=== PATIENT | male | born 1955 | race Caucasian/White ===

== ENCOUNTER → 2016-11-21 | Outpatient (CLI) | payer MEDICARE, OTHER ==
[~2016-11-21] MED LIST: ATEN-60 PO; CYANOCOBALAMIN (B-12) 1000 MCG/1 ML VIAL IM ONE; CYANOCOBALAMIN (B-12) 1000 MCG/1 ML VIAL ONE; FENT25DI2 TD; INSLANTI SC; INSUINJ47 IJ; ISOS20TA56 PO; PERCOT PO
[2016-11-21 14:30] VITALS: BP 152/98
== END | disposition home or self-care (01) ==
LOC: CHF HDHVI 14:02
PROVIDERS: ATTEND Internal Medicine Cardiovascular Disease
DX: I50.23 Acute on chronic systolic (congestive) heart failure (principal); D64.9 Anemia, unspecified; G89.29 Other chronic pain
CPT/HCPCS: 96372; G0463; J3420

== ENCOUNTER → 2016-12-27 | Outpatient (CLI) | payer MEDICARE, OTHER ==
[~2016-12-27] MED LIST changes: +AMINOPHYLLINE 250 MG/10 ML VL IV ONE; -CYANOCOBALAMIN (B-12) 1000 MCG/1 ML VIAL IM ONE; -CYANOCOBALAMIN (B-12) 1000 MCG/1 ML VIAL ONE
[2016-12-27 12:00] VITALS: BP 154/82
== END | disposition home or self-care (01) ==
LOC: CHF HDHVI 11:44
PROVIDERS: ATTEND Internal Medicine Cardiovascular Disease
DX: I50.9 Heart failure, unspecified (principal); I25.10 Atherosclerotic heart disease of native coronary artery without angina pectoris; D64.9 Anemia, unspecified; G89.29 Other chronic pain
CPT/HCPCS: G0463

== ENCOUNTER → 2017-01-29 | Outpatient (CLI) | payer MEDICARE, OTHER ==
[~2017-01-29] MED LIST changes: -AMINOPHYLLINE 250 MG/10 ML VL IV ONE
[2017-01-29 13:50] VITALS: BP 153/93
== END | disposition home or self-care (01) ==
LOC: CHF HDHVI 13:10
PROVIDERS: ATTEND Internal Medicine Cardiovascular Disease
DX: I50.9 Heart failure, unspecified (principal); M25.512 Pain in left shoulder; M25.511 Pain in right shoulder; M79.605 Pain in left leg; M79.604 Pain in right leg
CPT/HCPCS: G0463

== ENCOUNTER → 2017-02-21 | Outpatient (CLI) | payer MEDICARE, OTHER | END | disposition home or self-care (01) | LOC: Rad HDHVI 09:54 | PROVIDERS: ATTEND Internal Medicine Cardiovascular Disease | DX: H51.23 Internuclear ophthalmoplegia, bilateral (principal); H53.2 Diplopia; G70.01 Myasthenia gravis with (acute) exacerbation | CPT/HCPCS: 70450 ==

== ENCOUNTER → 2017-03-07 | Outpatient (CLI) | payer MEDICARE ==
[2017-03-07 11:00] VITALS: BP 178/89
[2017-03-07 11:55] VITALS: BP 165/88
== END | disposition home or self-care (01) ==
LOC: CHF HDHVI 11:27
PROVIDERS: ATTEND Internal Medicine Cardiovascular Disease
DX: I10 Essential (primary) hypertension (principal); E78.5 Hyperlipidemia, unspecified; E11.9 Type 2 diabetes mellitus without complications; F41.9 Anxiety disorder, unspecified; G89.29 Other chronic pain
CPT/HCPCS: G0463

== ENCOUNTER → 2017-04-09 | Outpatient (CLI) | payer MEDICARE ==
[~2017-04-09] VITALS: Ht 165.1 cm; Wt 108.9 kg
[~2017-04-09] MED LIST changes: +CYANOCOBALAMIN (B-12) 1000 MCG/1 ML VIAL IM ONE; +CYANOCOBALAMIN (B-12) 1000 MCG/1 ML VIAL ONE
[2017-04-09 13:00] VITALS: BP 151/78
== END | disposition home or self-care (01) ==
LOC: CHF HDHVI 12:15
PROVIDERS: ATTEND Internal Medicine Cardiovascular Disease
DX: I50.9 Heart failure, unspecified (principal); E11.9 Type 2 diabetes mellitus without complications; G89.29 Other chronic pain; R53.1 Weakness; M54.9 Dorsalgia, unspecified
CPT/HCPCS: 93701; 94620; 96372; G0463; J3420

== ENCOUNTER → 2017-05-15 | Outpatient (CLI) | payer MEDICARE ==
[~2017-05-15] MED LIST changes: -CYANOCOBALAMIN (B-12) 1000 MCG/1 ML VIAL IM ONE; -CYANOCOBALAMIN (B-12) 1000 MCG/1 ML VIAL ONE
[2017-05-15 10:12] VITALS: BP 156/76
[2017-05-15 11:00] VITALS: BP 156/76
== END | disposition home or self-care (01) ==
LOC: CHF HDHVI 10:24
PROVIDERS: ATTEND Internal Medicine Cardiovascular Disease
DX: I50.9 Heart failure, unspecified (principal); I10 Essential (primary) hypertension; E78.2 Mixed hyperlipidemia; E11.9 Type 2 diabetes mellitus without complications; G89.29 Other chronic pain; R06.02 Shortness of breath; Z95.1 Presence of aortocoronary bypass graft
CPT/HCPCS: 93701; G0463

== ENCOUNTER → 2017-06-19 | Outpatient (CLI) | payer MEDICARE ==
[2017-06-19 12:30] VITALS: BP 178/87
[2017-06-19 16:49] LABS: BUN/Creatinine Ratio 18.3; Calcium 8.4 mg/dL (8.5-10.1); Magnesium 2.4 mg/dL (1.6-2.6); Potassium 4.3 mmol/L (3.5-5.1)
[2017-06-19 16:50] LABS: Basophils # (auto) 0 uL; Basophils % (auto) 0.5 % (0.0-2.0); Eosinophils # (auto) 0.1 uL; Eosinophils % (auto) 1.6 % (0.0-7.0); Hematocrit 41.7 % (41.0-53.0); Hemoglobin 14.4 g/dL (13.5-17.5); Lymphocytes # (auto) 1.3 uL; Lymphocytes % (auto) 16.9 % (10.0-50.0); Mean Corpuscular Hemoglobin 29.5 pg (28.0-32.0); Mean Corpuscular Hgb Conc. 34.5 g/dL (32.0-36.0); Mean Corpuscular Volume 85.5 fL (80.0-100.0); Mean Platelet Volume 9.2 fL (7.4-10.4); Monocytes # (auto) 0.8 uL; Monocytes % (auto) 10.7 % (0.0-12.0); Neutrophils # (auto) 5.3 uL; Neutrophils % (auto) 70.3 % (37.0-80.0); Nucleated Red Blood Cells % 0.5 %; Platelet Count (auto) 188 10^3/uL (140-450); Red Cell Distribution Width 13.9 % (11.6-16.0); White Blood Cell 7.6 10^3/uL (4.4-10.8)
== END | disposition home or self-care (01) ==
LOC: CHF HDHVI 11:52
PROVIDERS: ATTEND Internal Medicine Cardiovascular Disease
DX: I11.0 Hypertensive heart disease with heart failure (principal); I50.9 Heart failure, unspecified; E11.9 Type 2 diabetes mellitus without complications; D51.9 Vitamin B12 deficiency anemia, unspecified; D64.9 Anemia, unspecified; E55.9 Vitamin D deficiency, unspecified; I25.10 Atherosclerotic heart disease of native coronary artery without angina pectoris
CPT/HCPCS: 36415; 80048; 82306; 82607; 83036; 83735; 85025; G0463

== ENCOUNTER → 2017-07-26 | Outpatient (CLI) | payer MEDICARE ==
[2017-07-26 10:00] VITALS: BP 165/88
== END | disposition home or self-care (01) ==
LOC: CHF HDHVI 11:52
PROVIDERS: ATTEND Internal Medicine Cardiovascular Disease
DX: I50.9 Heart failure, unspecified (principal); G89.29 Other chronic pain; R53.83 Other fatigue; Z95.1 Presence of aortocoronary bypass graft
CPT/HCPCS: G0463

== ENCOUNTER → 2017-07-31 | Outpatient (CLI) | payer MEDICARE ==
[2017-07-31 11:00] VITALS: BP 156/77
[2017-07-31 11:45] VITALS: BP 150/76
== END | disposition home or self-care (01) ==
LOC: CHF HDHVI 11:11
PROVIDERS: ATTEND Internal Medicine Cardiovascular Disease
DX: I50.9 Heart failure, unspecified (principal); E11.9 Type 2 diabetes mellitus without complications; I10 Essential (primary) hypertension; E78.5 Hyperlipidemia, unspecified; Z95.1 Presence of aortocoronary bypass graft
CPT/HCPCS: G0463

== ENCOUNTER → 2017-08-22 | Outpatient (CLI) | payer MEDICARE ==
[2017-08-22 11:00] VITALS: BP 166/86
[2017-08-22 12:00] VITALS: BP 177/80
== END | disposition home or self-care (01) ==
LOC: CHF HDHVI 11:11
PROVIDERS: ATTEND Internal Medicine Cardiovascular Disease
DX: E11.9 Type 2 diabetes mellitus without complications (principal); G89.29 Other chronic pain; I50.9 Heart failure, unspecified; E78.5 Hyperlipidemia, unspecified; Z95.1 Presence of aortocoronary bypass graft
CPT/HCPCS: G0463

== ENCOUNTER → 2017-09-13 | Outpatient (CLI) | payer MEDICARE ==
[~2017-09-13] MED LIST changes: +SODIUM CHLORIDE 0.9% 250 ML IV ONE; +cefTRIAXone 1GM/10ml IVPUSH 10 ML IV ONE; +cloNIDine HCL 0.1 MG TAB ONE; +cloNIDine HCL 0.1 MG TAB PO ONE
[2017-09-13 11:22] LABS: Basophils # (auto) 0 uL; Basophils % (auto) 0.1 % (0.0-2.0); Eosinophils # (auto) 0 uL; Hematocrit 45.6 % (41.0-53.0); Hemoglobin 15.5 g/dL (13.5-17.5); Lymphocytes # (auto) 1.1 uL; Mean Corpuscular Hemoglobin 29.2 pg (28.0-32.0); Mean Corpuscular Hgb Conc. 33.9 g/dL (32.0-36.0); Monocytes % (auto) 7.3 % (0.0-12.0); Neutrophils # (auto) 11.5 uL; Neutrophils % (auto) 84.6 % (37.0-80.0); Nucleated Red Blood Cells % 0.1 %; Platelet Count (auto) 202 10^3/uL (140-450); Red Cell Distribution Width 13.3 % (11.8-14.3); White Blood Cell 13.6 10^3/uL (4.4-10.8)
[2017-09-13 11:39] LABS: Albumin 3.8 g/dL (3.4-5.0); BUN/Creatinine Ratio 25.7; Bilirubin, Direct 0.1 mg/dL (0-0.2); Bilirubin, Total 0.5 mg/dL (0.2-1.0); Calcium 8.5 mg/dL (8.5-10.1); Potassium 3.8 mmol/L (3.5-5.1); Total Protein 7.6 g/dL (6.4-8.2)
[2017-09-13 13:27] LABS: Urine Bilirubin Negative (Negative); Urine Blood Negative /uL (Negative); Urine Color Yellow (Yellow); Urine Glucose 4+ mg/dL (Normal); Urine Ketone Negative (Negative); Urine Nitrite Negative (Negative); Urine Urobilinogen Normal (Negative); Urine pH 6.5 (5.0-8.0)
[2017-09-13 14:00] VITALS: BP 141/76
== END | disposition home or self-care (01) ==
LOC: CHF HDHVI 09:53
PROVIDERS: ATTEND Internal Medicine Cardiovascular Disease
DX: I51.7 Cardiomegaly (principal); I70.0 Atherosclerosis of aorta; I10 Essential (primary) hypertension; E11.9 Type 2 diabetes mellitus without complications; E78.00 Pure hypercholesterolemia, unspecified; D64.9 Anemia, unspecified; E03.9 Hypothyroidism, unspecified; E55.9 Vitamin D deficiency, unspecified; R53.81 Other malaise; R97.20 Elevated prostate specific antigen [PSA]; N39.0 Urinary tract infection, site not specified; R07.0 Pain in throat
CPT/HCPCS: 36415; 71020; 80048; 80061; 80076; 81003; 82306; 83036; 84153; 84403; 84443; 85025; 85652; 87070; 87086; 87880; 93005; 96361; 96374; G0463; 96360; 96375

== ENCOUNTER → 2017-09-17 | Outpatient (CLI) | payer MEDICARE ==
[~2017-09-17] MED LIST changes: -SODIUM CHLORIDE 0.9% 250 ML IV ONE; -cefTRIAXone 1GM/10ml IVPUSH 10 ML IV ONE; -cloNIDine HCL 0.1 MG TAB ONE; -cloNIDine HCL 0.1 MG TAB PO ONE
[2017-09-17 11:13] VITALS: BP 173/98
[2017-09-17 12:35] VITALS: BP 165/91
== END | disposition home or self-care (01) ==
LOC: Rad HDHVI 12:57
PROVIDERS: ATTEND Internal Medicine Cardiovascular Disease
DX: M19.012 Primary osteoarthritis, left shoulder (principal); M48.02 Spinal stenosis, cervical region; M47.892 Other spondylosis, cervical region
CPT/HCPCS: 72125; 73200; G0463

== ENCOUNTER → 2017-10-15 | Outpatient (CLI) | payer MEDICARE ==
[~2017-10-15] MED LIST changes: +CYANOCOBALAMIN (B-12) 1000 MCG/1 ML VIAL IM ONE; +CYANOCOBALAMIN (B-12) 1000 MCG/1 ML VIAL ONE; +KETOROLAC TROMETH 60MG/2ML VIAL IM ONE; +ONDANSETRON HCL 4 MG/2 ML VIAL IV ONE; +ONDANSETRON HCL 4 MG/2 ML VIAL ONE
[2017-10-15 10:35] VITALS: BP 141/79
[2017-10-15 12:25] LABS: Basophils # (auto) 0 uL; Basophils % (auto) 0.4 % (0.0-2.0); Eosinophils # (auto) 0.1 uL; Eosinophils % (auto) 0.8 % (0.0-7.0); Hematocrit 45.8 % (41.0-53.0); Hemoglobin 15.5 g/dL (13.5-17.5); Lymphocytes # (auto) 1.6 uL; Lymphocytes % (auto) 18.3 % (10.0-50.0); Mean Corpuscular Hemoglobin 29.3 pg (28.0-32.0); Mean Corpuscular Hgb Conc. 33.9 g/dL (32.0-36.0); Mean Corpuscular Volume 86.4 fL (80.0-100.0); Monocytes # (auto) 0.9 uL; Neutrophils # (auto) 5.9 uL; Neutrophils % (auto) 69.5 % (37.0-80.0); Nucleated Red Blood Cells % 0.4 %; Platelet Count (auto) 168 10^3/uL (140-450); Red Cell Distribution Width 13.6 % (11.8-14.3); White Blood Cell 8.5 10^3/uL (4.4-10.8)
[2017-10-15 12:52] LABS: Urine Blood Negative /uL (Negative); Urine Specific Gravity 1.007 (1.001-1.035)
[2017-10-15 12:54] LABS: Albumin 3.9 g/dL (3.4-5.0); BUN/Creatinine Ratio 16.8; Bilirubin, Total 0.6 mg/dL (0.2-1.0); Calcium 8.7 mg/dL (8.5-10.1); Magnesium 2.3 mg/dL (1.6-2.6); Potassium 3.9 mmol/L (3.5-5.1); Total Protein 7.5 g/dL (6.4-8.2)
== END | disposition home or self-care (01) ==
LOC: CHF HDHVI 08:42
PROVIDERS: ATTEND Internal Medicine Cardiovascular Disease
DX: I70.0 Atherosclerosis of aorta (principal); E83.42 Hypomagnesemia; D64.9 Anemia, unspecified; R70.0 Elevated erythrocyte sedimentation rate; I11.0 Hypertensive heart disease with heart failure; I50.9 Heart failure, unspecified; I25.10 Atherosclerotic heart disease of native coronary artery without angina pectoris; M54.9 Dorsalgia, unspecified; M25.511 Pain in right shoulder; R51 Headache; R11.0 Nausea
CPT/HCPCS: 36415; 71046; 80053; 81003; 83735; 85025; 85652; 87086; 96372; 96374; G0463; J1885; J2405; J3420

== ENCOUNTER → 2017-11-14 | Outpatient (CLI) | payer MEDICARE ==
[~2017-11-14] MED LIST changes: -CYANOCOBALAMIN (B-12) 1000 MCG/1 ML VIAL IM ONE; -CYANOCOBALAMIN (B-12) 1000 MCG/1 ML VIAL ONE; -KETOROLAC TROMETH 60MG/2ML VIAL IM ONE; -ONDANSETRON HCL 4 MG/2 ML VIAL IV ONE; -ONDANSETRON HCL 4 MG/2 ML VIAL ONE
[2017-11-14 13:10] VITALS: BP 179/92
== END | disposition home or self-care (01) ==
LOC: CHF HDHVI 16:56
PROVIDERS: ATTEND Internal Medicine Cardiovascular Disease
DX: E11.9 Type 2 diabetes mellitus without complications (principal); I50.9 Heart failure, unspecified; G89.4 Chronic pain syndrome
CPT/HCPCS: 93701; G0463

== ENCOUNTER → 2018-07-12 | Outpatient (CLI) | payer MEDICARE | END | disposition home or self-care (01) | LOC: Rad HDHVI 10:47 | PROVIDERS: ATTEND Internal Medicine Cardiovascular Disease | DX: I25.5 Ischemic cardiomyopathy (principal); I50.33 Acute on chronic diastolic (congestive) heart failure | CPT/HCPCS: 93306 ==

== ENCOUNTER → 2018-07-15 | Outpatient (CLI) | payer MEDICARE ==
[~2018-07-15] MED LIST changes: +CYANOCOBALAMIN (B-12) 1000 MCG/1 ML VIAL IM ONE; +CYANOCOBALAMIN (B-12) 1000 MCG/1 ML VIAL ONE; +FUROSEMIDE 40 MG/4 ML VIAL IV ONE; +FUROSEMIDE 40 MG/4 ML VIAL ONE; +KETOROLAC TROMETH 60MG/2ML VIAL IM ONE; +POTASSIUM CHL 10 Meq TABLET PO ONE; +POTASSIUM CHL 20 Meq TABLET PO ONE
[2018-07-15 08:00] VITALS: BP 174/99
[2018-07-15 10:00] VITALS: BP 155/71
[2018-07-15 12:46] LABS: Basophils # (auto) 0 uL; Basophils % (auto) 0.3 % (0.0-2.0); Eosinophils # (auto) 0.2 uL; Eosinophils % (auto) 2.5 % (0.0-7.0); Hematocrit 39.9 % (41.0-53.0); Hemoglobin 13.7 g/dL (13.5-17.5); Lymphocytes # (auto) 1.1 uL; Lymphocytes % (auto) 14.1 % (10.0-50.0); Mean Corpuscular Hgb Conc. 34.3 g/dL (32.0-36.0); Mean Corpuscular Volume 84.7 fL (80.0-100.0); Monocytes # (auto) 0.9 uL; Monocytes % (auto) 11.5 % (0.0-12.0); Neutrophils # (auto) 5.5 uL; Neutrophils % (auto) 71.6 % (37.0-80.0); Nucleated Red Blood Cells % 0.3 %; Platelet Count (auto) 152 10^3/uL (140-450); Red Blood Cells 4.71 10^6/uL (4.5-5.90); Red Cell Distribution Width 13.7 % (11.8-14.3); White Blood Cell 7.7 10^3/uL (4.4-10.8)
[2018-07-15 13:48] LABS: Potassium 3.9 mmol/L (3.5-5.1)
[2018-07-15 13:57] LABS: BUN/Creatinine Ratio 17.6; Calcium 7.6 mg/dL (8.5-10.1)
== END | disposition home or self-care (01) ==
LOC: CHF HDHVI 08:31
PROVIDERS: ATTEND Internal Medicine Cardiovascular Disease
DX: I11.0 Hypertensive heart disease with heart failure (principal); I50.32 Chronic diastolic (congestive) heart failure; E83.40 Disorders of magnesium metabolism, unspecified; D64.9 Anemia, unspecified; I10 Essential (primary) hypertension; D51.9 Vitamin B12 deficiency anemia, unspecified; E55.9 Vitamin D deficiency, unspecified; E78.5 Hyperlipidemia, unspecified; E11.9 Type 2 diabetes mellitus without complications; I48.91 Unspecified atrial fibrillation; R06.00 Dyspnea, unspecified; Z95.810 Presence of automatic (implantable) cardiac defibrillator
CPT/HCPCS: 36415; 80048; 82306; 82607; 82962; 83735; 83880; 85025; 96372; 96374; G0463; J1885; J1940; J3420

== ENCOUNTER → 2018-07-17 | Outpatient (CLI) | payer MEDICARE ==
[~2018-07-17] VITALS: Ht 30.5 cm; Wt 107.0 kg
[~2018-07-17] MED LIST changes: -CYANOCOBALAMIN (B-12) 1000 MCG/1 ML VIAL IM ONE; -CYANOCOBALAMIN (B-12) 1000 MCG/1 ML VIAL ONE; -FUROSEMIDE 40 MG/4 ML VIAL IV ONE; -FUROSEMIDE 40 MG/4 ML VIAL ONE; +FUROSEMIDE INJECTION 10 ML ONE; +FUROSEMIDE INJECTION 500 MG in SODIUM CHL 0.9% 500 ML IV SCH; -KETOROLAC TROMETH 60MG/2ML VIAL IM ONE
[2018-07-17 09:07] LABS: Albumin 3.5 g/dL (3.4-5.0); BUN/Creatinine Ratio 17.1; Calcium 8.1 mg/dL (8.5-10.1); Potassium 3.8 mmol/L (3.5-5.1)
[2018-07-17 09:13] LABS: Bilirubin, Total 0.6 mg/dL (0.2-1.0); Total Protein 7.4 g/dL (6.4-8.2); Uric Acid 7.9 mg/dL (3.5-7.2)
[2018-07-17 09:30] VITALS: BP 129/66
[2018-07-17 11:15] VITALS: BP 137/65
== END | disposition home or self-care (01) ==
LOC: CHF HDHVI 07:54
PROVIDERS: ATTEND Internal Medicine Cardiovascular Disease
DX: I50.32 Chronic diastolic (congestive) heart failure (principal); I11.0 Hypertensive heart disease with heart failure; E11.9 Type 2 diabetes mellitus without complications; M10.9 Gout, unspecified; E78.5 Hyperlipidemia, unspecified; I25.5 Ischemic cardiomyopathy; I48.91 Unspecified atrial fibrillation; D51.9 Vitamin B12 deficiency anemia, unspecified; Z95.810 Presence of automatic (implantable) cardiac defibrillator
CPT/HCPCS: 36415; 80053; 80061; 83036; 83880; 84550; 96365; 96366; G0463; J1940; J7040

== ENCOUNTER → 2018-07-30 | Outpatient (CLI) | payer MEDICARE ==
[~2018-07-30] MED LIST changes: -FUROSEMIDE INJECTION 10 ML ONE; -FUROSEMIDE INJECTION 500 MG in SODIUM CHL 0.9% 500 ML IV SCH; -POTASSIUM CHL 10 Meq TABLET PO ONE; -POTASSIUM CHL 20 Meq TABLET PO ONE
== END | disposition home or self-care (01) ==
LOC: LAB 14:04
PROVIDERS: ATTEND Internal Medicine Cardiovascular Disease
DX: R19.5 Other fecal abnormalities (principal)
CPT/HCPCS: 82270

== ENCOUNTER → 2018-10-07 | Outpatient (CLI) | payer MEDICARE ==
[~2018-10-07] VITALS: Ht 30.5 cm; Wt 113.4 kg
[~2018-10-07] MED LIST changes: +CYANOCOBALAMIN (B-12) 1000 MCG/1 ML VIAL IM ONE; +CYANOCOBALAMIN (B-12) 1000 MCG/1 ML VIAL ONE; +FUROSEMIDE 100 MG/10ML VIAL IV ONE; +FUROSEMIDE 40 MG/4 ML VIAL ONE; +MAGNESIUM OXIDE 400 MG TAB ONE; +MAGNESIUM OXIDE 400 MG TAB PO ONE; +POTASSIUM CHL 10 Meq TABLET PO ONE; +POTASSIUM CHL 20 Meq TABLET PO ONE
--- NOTE | 2018-10-07 08:40 | NUR ---
PT. TO CHF CLINIC WITH C/O SOB WORSENING OVER PAST 2-3 DAYS. PT. WITH GRADUAL WT. GAIN AND HAS NOT BEEN SEEN IN CHF CLINIC IN 2+ MONTHS. MD ORDERS RECEIVED AND CARRIED OUT SEE NSG ASSESS.
--- NOTE | 2018-10-07 09:00 | NUR ---
IV insertion IV access obtained, via clean sterile technique by inserting 22 gauge catheter at after attempt(s). IV secured properly. No trauma to site. Patient tolerated procedure well.LABS SENT PER MD ORDER.
--- NOTE | 2018-10-07 09:05 | NUR ---
MEDS: LASIX 80 MG IVP GIVE PER MD ORDER.
--- NOTE | 2018-10-07 09:09 | NUR ---
MEDS; pt. medicated with kdur and mag ox po per md order.
--- NOTE | 2018-10-07 09:10 | NUR ---
PT. TO AND FROM XRAY VIA AMBULATION.
--- NOTE | 2018-10-07 09:14 | NUR ---
MEDS: PT. MEDICATED WITH VIT. B12 1000MCG IM PER MD ORDER
--- NOTE | 2018-10-07 09:30 | NUR ---
CARDIODYNAMICS DONE WITH RESULTS REVIEWED WITH PT. AND .
[2018-10-07 10:30] VITALS: BP 137/73
--- NOTE | 2018-10-07 10:30 | NUR ---
IV removal IV DC'd with sterile technique, catheter fully intact. Pressure dressing applied to site. Patient tolerated procedure well. Discharged with aftercare instructions per MD. NOTE: RX CALLED TO [facility] FOR Z-PACK PER MD ORDER.
[2018-10-07 12:10] LABS: Basophils # (auto) 0 uL; Basophils % (auto) 0.3 % (0.0-2.0); Eosinophils # (auto) 0.1 uL; Eosinophils % (auto) 2.2 % (0.0-7.0); Hematocrit 40.7 % (41.0-53.0); Hemoglobin 13.7 g/dL (13.5-17.5); Lymphocytes # (auto) 0.9 uL; Lymphocytes % (auto) 13.4 % (10.0-50.0); Mean Corpuscular Hemoglobin 28.9 pg (28.0-32.0); Mean Corpuscular Hgb Conc. 33.6 g/dL (32.0-36.0); Mean Corpuscular Volume 86.1 fL (80.0-100.0); Monocytes # (auto) 1.1 uL; Monocytes % (auto) 15.4 % (0.0-12.0); Neutrophils # (auto) 4.8 uL; Neutrophils % (auto) 68.7 % (37.0-80.0); Nucleated Red Blood Cells % 0.1 %; Platelet Count (auto) 151 10^3/uL (140-450); Red Blood Cells 4.73 10^6/uL (4.5-5.90); Red Cell Distribution Width 13.8 % (11.8-14.3); White Blood Cell 6.9 10^3/uL (4.4-10.8)
[2018-10-07 13:09] LABS: Potassium 3.6 mmol/L (3.5-5.1)
[2018-10-07 13:14] LABS: BUN/Creatinine Ratio 17.1; Calcium 8.4 mg/dL (8.5-10.1); Magnesium 2.2 mg/dL (1.6-2.6)
== END | disposition home or self-care (01) ==
LOC: CHF HDHVI 08:41
PROVIDERS: ATTEND Internal Medicine Cardiovascular Disease
DX: I13.0 Hypertensive heart and chronic kidney disease with heart failure and stage 1 through stage 4 chronic kidney disease, or unspecified chronic kidney disease (principal); E11.22 Type 2 diabetes mellitus with diabetic chronic kidney disease; N18.2 Chronic kidney disease, stage 2 (mild); I50.42 Chronic combined systolic (congestive) and diastolic (congestive) heart failure; E83.40 Disorders of magnesium metabolism, unspecified; D64.9 Anemia, unspecified; R06.02 Shortness of breath; E78.2 Mixed hyperlipidemia; E03.9 Hypothyroidism, unspecified; E78.00 Pure hypercholesterolemia, unspecified; E66.01 Morbid (severe) obesity due to excess calories; E11.40 Type 2 diabetes mellitus with diabetic neuropathy, unspecified; I48.91 Unspecified atrial fibrillation; I25.10 Atherosclerotic heart disease of native coronary artery without angina pectoris; I25.2 Old myocardial infarction; F41.9 Anxiety disorder, unspecified; G89.4 Chronic pain syndrome; M10.9 Gout, unspecified; M54.9 Dorsalgia, unspecified; M19.012 Primary osteoarthritis, left shoulder; M48.02 Spinal stenosis, cervical region; Z95.810 Presence of automatic (implantable) cardiac defibrillator; Z87.440 Personal history of urinary (tract) infections; Z95.1 Presence of aortocoronary bypass graft; Z95.5 Presence of coronary angioplasty implant and graft; Z79.82 Long term (current) use of aspirin; Z79.02 Long term (current) use of antithrombotics/antiplatelets
CPT/HCPCS: 36415; 71046; 80048; 83735; 83880; 85025; 93701; 96372; 96374; G0463; J1940; J3420; 96365

== ENCOUNTER → 2018-11-04 | Outpatient (CLI) | payer MEDICARE ==
[~2018-11-04] MED LIST changes: -CYANOCOBALAMIN (B-12) 1000 MCG/1 ML VIAL IM ONE; -CYANOCOBALAMIN (B-12) 1000 MCG/1 ML VIAL ONE; -FUROSEMIDE 100 MG/10ML VIAL IV ONE; -FUROSEMIDE 40 MG/4 ML VIAL ONE; -MAGNESIUM OXIDE 400 MG TAB ONE; -MAGNESIUM OXIDE 400 MG TAB PO ONE; -POTASSIUM CHL 10 Meq TABLET PO ONE; -POTASSIUM CHL 20 Meq TABLET PO ONE; +READI-CAT 2 (BARIUM SULF)(VANILLA SMOOTHIE) 450ML ONE
[2018-11-04 16:11] LABS: Urine Blood Negative /uL (Negative); Urine Specific Gravity 1.027 (1.001-1.035)
[2018-11-04 16:16] LABS: Basophils # (auto) 0 uL; Basophils % (auto) 0.2 % (0.0-2.0); Eosinophils # (auto) 0.1 uL; Eosinophils % (auto) 1.1 % (0.0-7.0); Hemoglobin 14.1 g/dL (13.5-17.5); Lymphocytes # (auto) 1.4 uL; Lymphocytes % (auto) 15.6 % (10.0-50.0); Mean Corpuscular Hemoglobin 28.8 pg (28.0-32.0); Mean Corpuscular Hgb Conc. 33.7 g/dL (32.0-36.0); Mean Corpuscular Volume 85.4 fL (80.0-100.0); Monocytes # (auto) 1.1 uL; Monocytes % (auto) 12.4 % (0.0-12.0); Neutrophils # (auto) 6.3 uL; Neutrophils % (auto) 70.7 % (37.0-80.0); Nucleated Red Blood Cells % 0.7 %; Platelet Count (auto) 167 10^3/uL (140-450); Red Blood Cells 4.92 10^6/uL (4.5-5.90); Red Cell Distribution Width 14.5 % (11.8-14.3); White Blood Cell 8.9 10^3/uL (4.4-10.8)
[2018-11-04 16:29] LABS: Potassium 4.1 mmol/L (3.5-5.1)
[2018-11-04 16:33] LABS: Albumin 3.6 g/dL (3.4-5.0); BUN/Creatinine Ratio 18.3; Calcium 8.3 mg/dL (8.5-10.1)
[2018-11-04 16:35] LABS: Bilirubin, Total 0.5 mg/dL (0.2-1.0); Total Protein 7.2 g/dL (6.4-8.2)
== END | disposition home or self-care (01) ==
LOC: Rad HDHVI 11:33
PROVIDERS: ATTEND Internal Medicine Cardiovascular Disease
DX: N20.0 Calculus of kidney (principal); I70.0 Atherosclerosis of aorta; I11.9 Hypertensive heart disease without heart failure; D64.9 Anemia, unspecified; N39.0 Urinary tract infection, site not specified
CPT/HCPCS: 36415; 74176; 80053; 81003; 85025; 87086

== ENCOUNTER → 2018-11-14 | Outpatient (CLI) | payer MEDICARE ==
[~2018-11-14] MED LIST changes: -READI-CAT 2 (BARIUM SULF)(VANILLA SMOOTHIE) 450ML ONE
--- NOTE | 2018-11-14 09:03 | NUR ---
CHF PT TO CHF CLINIC FOR C/O OF L ABD QUAD PAIN, FREQ URINATION, ALL OVER BAD FEELING.
[2018-11-14 10:15] VITALS: BP 140/80
--- NOTE | 2018-11-14 10:15 | NUR ---
CHF Discharge Instructions See e-MAR for any mediations given with this visit. Patient education given on disease process. Patient verbalized understanding. Previous labs reviewed. MD ORDERED LABS OBTAINED. Patient discharged in stable condition with after care instructions and follow up appointment.PT TO SEE DR. RIZVI TODAY AND F/U AGAIN ON SUNDAY WITH HIM. PT HAS HX KIDNEY STONES.
[2018-11-14 10:19] LABS: Basophils # (auto) 0 uL; Basophils % (auto) 0.3 % (0.0-2.0); Eosinophils # (auto) 0.2 uL; Eosinophils % (auto) 1.5 % (0.0-7.0); Hematocrit 42.2 % (41.0-53.0); Hemoglobin 14.2 g/dL (13.5-17.5); Lymphocytes # (auto) 1.3 uL; Lymphocytes % (auto) 12.9 % (10.0-50.0); Mean Corpuscular Hemoglobin 28.6 pg (28.0-32.0); Mean Corpuscular Hgb Conc. 33.7 g/dL (32.0-36.0); Mean Corpuscular Volume 84.8 fL (80.0-100.0); Monocytes # (auto) 1.1 uL; Monocytes % (auto) 11.2 % (0.0-12.0); Neutrophils # (auto) 7.5 uL; Neutrophils % (auto) 74.1 % (37.0-80.0); Nucleated Red Blood Cells % 0.1 %; Platelet Count (auto) 161 10^3/uL (140-450); Red Blood Cells 4.97 10^6/uL (4.5-5.90); Red Cell Distribution Width 14.8 % (11.8-14.3); White Blood Cell 10.1 10^3/uL (4.4-10.8)
[2018-11-14 10:20] LABS: Urine Blood Negative /uL (Negative); Urine Specific Gravity 1.021 (1.001-1.035)
[2018-11-14 10:33] LABS: Albumin 3.6 g/dL (3.4-5.0); Calcium 8.4 mg/dL (8.5-10.1); Potassium 3.9 mmol/L (3.5-5.1)
[2018-11-14 10:35] LABS: BUN/Creatinine Ratio 18.2; Bilirubin, Total 0.4 mg/dL (0.2-1.0); Total Protein 7.2 g/dL (6.4-8.2)
== END | disposition home or self-care (01) ==
LOC: CHF HDHVI 09:10
PROVIDERS: ATTEND Internal Medicine Cardiovascular Disease
DX: D64.9 Anemia, unspecified (principal); N39.0 Urinary tract infection, site not specified; I11.0 Hypertensive heart disease with heart failure; I50.9 Heart failure, unspecified; I25.10 Atherosclerotic heart disease of native coronary artery without angina pectoris
CPT/HCPCS: 36415; 80053; 81003; 85025; 87086; G0463

== ENCOUNTER → 2019-02-03 | Outpatient (CLI) | payer MEDICARE ==
[2019-02-03 12:44] LABS: Basophils # (auto) 0 uL; Basophils % (auto) 0.3 % (0.0-2.0); Eosinophils # (auto) 0.2 uL; Eosinophils % (auto) 1.5 % (0.0-7.0); Hematocrit 39.6 % (41.0-53.0); Hemoglobin 13.4 g/dL (13.5-17.5); Lymphocytes # (auto) 0.9 uL; Lymphocytes % (auto) 8.7 % (10.0-50.0); Mean Corpuscular Hemoglobin 28.8 pg (28.0-32.0); Mean Corpuscular Hgb Conc. 33.8 g/dL (32.0-36.0); Monocytes # (auto) 1.1 uL; Monocytes % (auto) 10.4 % (0.0-12.0); Neutrophils # (auto) 8.1 uL; Neutrophils % (auto) 79.1 % (37.0-80.0); Nucleated Red Blood Cells % 0.1 %; Platelet Count (auto) 146 10^3/uL (140-450); Red Blood Cells 4.65 10^6/uL (4.5-5.90); Red Cell Distribution Width 14.7 % (11.8-14.3); White Blood Cell 10.3 10^3/uL (4.4-10.8)
[2019-02-03 13:13] LABS: Potassium 3.8 mmol/L (3.5-5.1)
[2019-02-03 13:29] LABS: Albumin 3.6 g/dL (3.4-5.0); BUN/Creatinine Ratio 18.3; Bilirubin, Total 0.6 mg/dL (0.2-1.0); Calcium 8.7 mg/dL (8.5-10.1); Magnesium 2.1 mg/dL (1.6-2.6)
== END | disposition home or self-care (01) ==
LOC: LAB 08:59
PROVIDERS: ATTEND Internal Medicine
DX: E11.9 Type 2 diabetes mellitus without complications (principal); D64.9 Anemia, unspecified; I11.0 Hypertensive heart disease with heart failure; I50.23 Acute on chronic systolic (congestive) heart failure; E83.40 Disorders of magnesium metabolism, unspecified
CPT/HCPCS: 36415; 80053; 83036; 83735; 85025

== ENCOUNTER → 2019-02-10 | Outpatient (CLI) | payer MEDICARE ==
[~2019-02-10] MED LIST changes: +FUROSEMIDE 100 MG/10ML VIAL IV ONE; +FUROSEMIDE 40 MG/4 ML VIAL ONE; +POTASSIUM CHL 20 Meq TABLET PO ONE
--- NOTE | 2019-02-10 08:10 | NUR ---
PT. TO CHF CLINIC FOR EVAL. AND TX FOR C/O CHEST TIGHTNESS ONSET THIS AM WITH SOB WITH EXERTION. PT. ALSO STATES HE HAD SIMILAR S&S OVER THE WEEKEND. AOX3, PWD, AND APPEARS IN NO ACUTE DISTRESS. WT. UP GREATER THAN 4 LBS, WITH NOTED ELEVATION IN BP, AFTER PT. STATES HE TOOK HIS ENTRESTO AND COREG THIS AM AT 0700. MD ORDERS RECEIVED AND CARRIED OUT. SEE NSG ASSESS.
--- NOTE | 2019-02-10 08:20 | NUR ---
IV insertion IV access obtained, via clean sterile technique by inserting 22 gauge catheter at after attempt(s). IV secured properly. No trauma to site. Patient tolerated procedure well. LABS DRAWN AND SENT.
--- NOTE | 2019-02-10 08:32 | NUR ---
MEDS: PT. MEDICATED WITH LASIX PER MD ORDER.
--- NOTE | 2019-02-10 08:35 | NUR ---
MEDS: PT. MEDICATED WITH KDUR 40 MEQ. PO PER MD ORDER.
--- NOTE | 2019-02-10 09:05 | NUR ---
ACTIVITY: PT TO AND FROM BR 3 TIMES IN LAST HALF HOUR. B/P COMING DOWN TO 149/87, HR 90.
[2019-02-10 09:18] LABS: Basophils # (auto) 0 uL; Basophils % (auto) 0.4 % (0.0-2.0); Eosinophils # (auto) 0.1 uL; Eosinophils % (auto) 1.3 % (0.0-7.0); Hematocrit 41.9 % (41.0-53.0); Hemoglobin 13.7 g/dL (13.5-17.5); Lymphocytes # (auto) 0.9 uL; Lymphocytes % (auto) 8.9 % (10.0-50.0); Mean Corpuscular Hemoglobin 28.4 pg (28.0-32.0); Mean Corpuscular Hgb Conc. 32.8 g/dL (32.0-36.0); Mean Corpuscular Volume 86.5 fL (80.0-100.0); Monocytes # (auto) 0.7 uL; Monocytes % (auto) 7.6 % (0.0-12.0); Neutrophils # (auto) 7.8 uL; Neutrophils % (auto) 81.8 % (37.0-80.0); Nucleated Red Blood Cells % 0.1 %; Platelet Count (auto) 171 10^3/uL (140-450); Red Blood Cells 4.85 10^6/uL (4.5-5.90); Red Cell Distribution Width 14.9 % (11.8-14.3); White Blood Cell 9.6 10^3/uL (4.4-10.8)
[2019-02-10 09:48] LABS: Potassium 4.1 mmol/L (3.5-5.1)
--- NOTE | 2019-02-10 10:10 | NUR ---
PT. TO AND FROM DR. RIZVI'S OFFICE FOR APPT. NEW ORDERS RECEIVED FOR PT. TO RTC IN AM. AWARE OF U.O. AT THIS TIME. CXR DONE PRIOR TO MD APPT.
--- NOTE | 2019-02-10 10:30 | NUR ---
VSS. PT. WITH MULTIPLE TRIPS TO RESTROOM WITHOUT ASSIST. 136/72,80, 18
--- NOTE | 2019-02-10 11:10 | NUR ---
ADDITIONAL LABS OBTAINED PER MD ORDER. UA SENT. IV DC'D SITE BENIGN, CATHETER INTACT.
[2019-02-10 11:25] VITALS: BP 130/64
--- NOTE | 2019-02-10 11:25 | NUR ---
Discharge Instructions See e-MAR for any mediations given with this visit. Patient education given on disease process. Patient verbalized understanding. Previous labs reviewed. Patient discharged in stable condition with after care instructions and follow up appointment. PT. TO RTC IN AM. PT. STATES FEELING MUCH BETTER AFTER MEDS. 4.5 LBS REMOVED FROM LASIX IVP. B/P MUCH IMPROVED.
[2019-02-10 16:18] LABS: Urine Blood Negative /uL (Negative); Urine Specific Gravity 1.007 (1.001-1.035)
== END | disposition home or self-care (01) ==
LOC: CHF HDHVI 08:07
PROVIDERS: ATTEND Internal Medicine Cardiovascular Disease
DX: I70.0 Atherosclerosis of aorta (principal); I25.10 Atherosclerotic heart disease of native coronary artery without angina pectoris; E87.6 Hypokalemia; R94.4 Abnormal results of kidney function studies; I11.0 Hypertensive heart disease with heart failure; I50.23 Acute on chronic systolic (congestive) heart failure; E55.9 Vitamin D deficiency, unspecified; D64.9 Anemia, unspecified; N39.0 Urinary tract infection, site not specified; C61 Malignant neoplasm of prostate; E11.9 Type 2 diabetes mellitus without complications
CPT/HCPCS: 36415; 71046; 81003; 82306; 82565; 83880; 84132; 84153; 84403; 84520; 85025; 96374; G0463; J1940

== ENCOUNTER → 2019-02-11 | Outpatient (CLI) | payer MEDICARE ==
[~2019-02-11] MED LIST changes: -FUROSEMIDE 100 MG/10ML VIAL IV ONE; +FUROSEMIDE 20 MG/2 ML VIAL IV ONE; +FUROSEMIDE 20 MG/2 ML VIAL ONE; +POTASSIUM CHL 10 Meq TABLET PO ONE
--- NOTE | 2019-02-11 10:30 | NUR ---
PT. TO CHF CLINIC FOR EVAL. AND TX FOR ACUTE DECOMPENSATION OF CHF. PREVIOUS LABS OF YESTERDAY REVIEWED WITH PT., WHO STATES HE IS FEELING BETTER WITH ANOTHER 2 LBS WT. LOSS SINCE LAST VISIT. ORDERS RECEIVED AND CARRIED OUT. SEE NSG ASSESS.
--- NOTE | 2019-02-11 11:02 | NUR ---
MEDS: PT. MEDICATED WITH LASIX 60MG SIVP, AFTER LABS DRAWN AND SENT PER MD ORDER.
--- NOTE | 2019-02-11 11:05 | NUR ---
MEDS: PT. MEDICATED WITH KDUR 30 MEQ. PO PER MD ORDER.
--- NOTE | 2019-02-11 11:40 | NUR ---
PT. TO AND FROM DR. RIZVI'S OFFICE FOR EXAM. PT HAS INSTRUCTIONS TO RTC ON SUNDAY FOR EVAL./TX PER MD ORDER.
--- NOTE | 2019-02-11 12:10 | NUR ---
Discharge Instructions See e-MAR for any mediations given with this visit. Patient education given on disease process. Patient verbalized understanding. Previous labs reviewed. Patient discharged in stable condition with after care instructions and follow up appointment. WT. DOWN [id number] 1.5 LBS.
[2019-02-11 12:15] VITALS: BP 127/66
[2019-02-11 12:51] LABS: Potassium 3.8 mmol/L (3.5-5.1)
== END | disposition home or self-care (01) ==
LOC: CHF HDHVI 10:24
PROVIDERS: ATTEND Internal Medicine Cardiovascular Disease
DX: I11.0 Hypertensive heart disease with heart failure (principal); I50.23 Acute on chronic systolic (congestive) heart failure; I25.10 Atherosclerotic heart disease of native coronary artery without angina pectoris; E11.9 Type 2 diabetes mellitus without complications
CPT/HCPCS: 36415; 82565; 83880; 84132; 84520; 96374; G0463; J1940

== ENCOUNTER → 2019-07-14 | Outpatient (CLI) | payer MEDICARE ==
[~2019-07-14] VITALS: Ht 30.5 cm; Wt 0.5 kg
[~2019-07-14] MED LIST changes: +CYANOCOBALAMIN (B-12) 1000 MCG/1 ML VIAL IM ONE; +CYANOCOBALAMIN (B-12) 1000 MCG/1 ML VIAL ONE; -FUROSEMIDE 20 MG/2 ML VIAL IV ONE; -FUROSEMIDE 20 MG/2 ML VIAL ONE; -FUROSEMIDE 40 MG/4 ML VIAL ONE; -POTASSIUM CHL 10 Meq TABLET PO ONE; -POTASSIUM CHL 20 Meq TABLET PO ONE; +TESTOSTERONE CYPIONATE 200 MG/ML 1ML VIAL IM ONE
[2019-07-14 11:03] VITALS: BP 126/69
--- NOTE | 2019-07-14 11:03 | NUR ---
CHF CLINIC Discharge Instructions See e-MAR for any mediations given with this visit. Patient education given on disease process. Patient verbalized understanding. Previous labs reviewed. Patient discharged in stable condition with after care instructions and follow up appointment. NOTE B12 IM L DELTOID ADMIN BY SAI KAHN. TESTOSTERONE IM R GLUTE ADMIN BY SAI KAHN.
[2019-07-14 12:15] LABS: Basophils # (auto) 0 uL; Basophils % (auto) 0.4 % (0.0-2.0); Eosinophils # (auto) 0.2 uL; Eosinophils % (auto) 2.7 % (0.0-7.0); Hematocrit 43.1 % (41.0-53.0); Hemoglobin 14.5 g/dL (13.5-17.5); Lymphocytes # (auto) 1.2 uL; Mean Corpuscular Hemoglobin 28.8 pg (28.0-32.0); Mean Corpuscular Hgb Conc. 33.7 g/dL (32.0-36.0); Mean Corpuscular Volume 85.5 fL (80.0-100.0); Monocytes % (auto) 11.9 % (0.0-12.0); Neutrophils # (auto) 5.7 uL; Platelet Count (auto) 156 10^3/uL (140-450); Red Blood Cells 5.04 10^6/uL (4.5-5.90); Red Cell Distribution Width 14.2 % (11.8-14.3); White Blood Cell 8.2 10^3/uL (4.4-10.8)
[2019-07-14 12:18] LABS: Urine Blood Negative /uL (Negative); Urine Specific Gravity 1.016 (1.001-1.035)
[2019-07-14 12:37] LABS: Potassium 3.9 mmol/L (3.5-5.1)
[2019-07-14 12:51] LABS: BUN/Creatinine Ratio 17.8; Calcium 8.5 mg/dL (8.5-10.1)
== END | disposition home or self-care (01) ==
LOC: CHF HDHVI 09:17
PROVIDERS: ATTEND Internal Medicine Cardiovascular Disease
DX: E29.1 Testicular hypofunction (principal); R53.83 Other fatigue; I11.0 Hypertensive heart disease with heart failure; I50.22 Chronic systolic (congestive) heart failure; N39.0 Urinary tract infection, site not specified; D64.9 Anemia, unspecified; Z79.899 Other long term (current) drug therapy
CPT/HCPCS: 36415; 80048; 81003; 83036; 85025; 96372; G0463; J1071; J3420

== ENCOUNTER → 2019-08-06 | Outpatient (CLI) | payer MEDICARE ==
[~2019-08-06] MED LIST changes: +BUMETANIDE 1mg/4ml VIAL (0.25mg/ml) ONE; +BUMETANIDE 2.5mg/10ml (0.25 mg/ml) INJ IV ONE; +ONDANSETRON HCL 4 MG/2 ML VIAL IV ONE; +ONDANSETRON HCL 4 MG/2 ML VIAL ONE; +POTASSIUM CHL 10 Meq TABLET PO ONE; +POTASSIUM EFFERVESENT TAB 25 MEQ ONE; -TESTOSTERONE CYPIONATE 200 MG/ML 1ML VIAL IM ONE
--- NOTE | 2019-08-06 09:00 | NUR ---
Clinic Provider Clinic Provider updated on pt status , nausea fatigue and weight gain. New orders received and carried out.
--- NOTE | 2019-08-06 09:20 | NUR ---
IV insertion IV access obtained, via clean sterile technique by inserting 22 gauge catheter at after attempt(s). IV secured properly. No trauma to site. Patient tolerated procedure well.
[2019-08-06] MEDS: POTASSIUM EFFERVESENT TAB 25 MEQ PO SCH (10:00)
--- NOTE | 2019-08-06 11:10 | NUR ---
IV removal IV DC'd with sterile technique, catheter fully intact. Pressure dressing applied to site. Patient tolerated procedure well. Discharged with aftercare instructions per MD. NOTE: BY MARK KAHN
[2019-08-06 11:15] VITALS: BP 130/70
--- NOTE | 2019-08-06 11:15 | NUR ---
Discharge Instructions See e-MAR for any mediations given with this visit. Patient education given on disease process. Patient verbalized understanding. Previous labs reviewed. Patient discharged in stable condition with after care instructions and follow up appointment. MEDICATIONS BUMEX IVP POTASSIUM PO ZOFRAN IVP VITAMIN B12 IM LABS DRAWN AND PATIENT EDUCATED ON TAKING HIS DEXILANT PRESCRIPTION. PT VERBALIZED UNDERSTANDING
[2019-08-06 12:42] LABS: Basophils # (auto) 0 uL; Basophils % (auto) 0.3 % (0.0-2.0); Eosinophils # (auto) 0.1 uL; Eosinophils % (auto) 1.3 % (0.0-7.0); Hematocrit 38.1 % (41.0-53.0); Hemoglobin 12.8 g/dL (13.5-17.5); Lymphocytes # (auto) 0.7 uL; Lymphocytes % (auto) 6.6 % (10.0-50.0); Mean Corpuscular Hemoglobin 28.4 pg (28.0-32.0); Mean Corpuscular Hgb Conc. 33.5 g/dL (32.0-36.0); Mean Corpuscular Volume 84.7 fL (80.0-100.0); Monocytes % (auto) 10.1 % (0.0-12.0); Neutrophils # (auto) 8.3 uL; Neutrophils % (auto) 81.7 % (37.0-80.0); Nucleated Red Blood Cells % 0.1 %; Platelet Count (auto) 233 10^3/uL (140-450); White Blood Cell 10.1 10^3/uL (4.4-10.8)
[2019-08-06 12:51] LABS: Albumin 3.2 g/dL (3.4-5.0); BUN/Creatinine Ratio 15.6; Calcium 8.2 mg/dL (8.5-10.1); Magnesium 2.1 mg/dL (1.6-2.6); Potassium 3.6 mmol/L (3.5-5.1)
[2019-08-06 12:53] LABS: Bilirubin, Total 1.1 mg/dL (0.2-1.0); Total Protein 7.1 g/dL (6.4-8.2)
== END | disposition home or self-care (01) ==
LOC: CHF HDHVI 09:27
PROVIDERS: ATTEND Internal Medicine Cardiovascular Disease
DX: I11.0 Hypertensive heart disease with heart failure (principal); I50.22 Chronic systolic (congestive) heart failure; R53.83 Other fatigue; K90.9 Intestinal malabsorption, unspecified; D51.9 Vitamin B12 deficiency anemia, unspecified; D64.9 Anemia, unspecified; Z79.899 Other long term (current) drug therapy
CPT/HCPCS: 36415; 80053; 82306; 82607; 83735; 83880; 85025; 96372; 96374; 96375; G0463; J2405; J3420; J3490

== ENCOUNTER → 2019-08-12 | Outpatient (CLI) | payer MEDICARE ==
[~2019-08-12] MED LIST changes: -CYANOCOBALAMIN (B-12) 1000 MCG/1 ML VIAL IM ONE; -CYANOCOBALAMIN (B-12) 1000 MCG/1 ML VIAL ONE; -ONDANSETRON HCL 4 MG/2 ML VIAL IV ONE; -ONDANSETRON HCL 4 MG/2 ML VIAL ONE; +POTASSIUM EFFERVESENT TAB 25 MEQ PO ONE
[2019-08-12 11:00] VITALS: BP 149/76
--- NOTE | 2019-08-12 11:00 | NUR ---
CHF CLINIC Discharge Instructions See e-MAR for any mediations given with this visit. Patient education given on disease process. Patient verbalized understanding. Previous labs reviewed. Patient discharged in stable condition with after care instructions and follow up appointment. NOTE BUMEX IVP ADMIN BY AMANDA ESTES. POTASSIUM PO ADMIN BY AMANDA ESTES. PATIENT STARTED ON DEMEDEX 20MG BID CALLED INTO PATIENTS PHARMACY.
[2019-08-12 12:40] LABS: Potassium 3.5 mmol/L (3.5-5.1)
== END | disposition home or self-care (01) ==
LOC: CHF HDHVI 09:47
PROVIDERS: ATTEND Internal Medicine Cardiovascular Disease
DX: I11.0 Hypertensive heart disease with heart failure (principal); I50.22 Chronic systolic (congestive) heart failure; E87.6 Hypokalemia; R94.4 Abnormal results of kidney function studies; Z79.899 Other long term (current) drug therapy
CPT/HCPCS: 36415; 82565; 83880; 84132; 84520; 96374; G0463; J3490

== ENCOUNTER → 2019-08-13 | Outpatient (CLI) | payer MEDICARE ==
[~2019-08-13] MED LIST changes: -BUMETANIDE 1mg/4ml VIAL (0.25mg/ml) ONE; -BUMETANIDE 2.5mg/10ml (0.25 mg/ml) INJ IV ONE; -POTASSIUM CHL 10 Meq TABLET PO ONE; -POTASSIUM EFFERVESENT TAB 25 MEQ ONE; -POTASSIUM EFFERVESENT TAB 25 MEQ PO ONE
== END | disposition home or self-care (01) ==
LOC: Rad HDHVI 14:59
PROVIDERS: ATTEND Internal Medicine Cardiovascular Disease
DX: I11.0 Hypertensive heart disease with heart failure (principal); I50.32 Chronic diastolic (congestive) heart failure
CPT/HCPCS: 93306

== ENCOUNTER → 2019-08-21 | Outpatient (CLI) | payer MEDICARE ==
[2019-08-21 12:19] LABS: BUN/Creatinine Ratio 13.8; Calcium 8.5 mg/dL (8.5-10.1); Magnesium 2.3 mg/dL (1.6-2.6)
== END | disposition home or self-care (01) ==
LOC: LAB 09:44
PROVIDERS: ATTEND Internal Medicine Cardiovascular Disease
DX: I11.0 Hypertensive heart disease with heart failure (principal); I50.9 Heart failure, unspecified; Z95.1 Presence of aortocoronary bypass graft; Z87.891 Personal history of nicotine dependence; Z91.013 Allergy to seafood; Z91.048 Other nonmedicinal substance allergy status
CPT/HCPCS: 36415; 80048; 83735; 83880

== ENCOUNTER → 2019-10-09 | Outpatient (CLI) | payer MEDICARE ==
[2019-10-09 12:03] LABS: Potassium 3.7 mmol/L (3.5-5.1)
== END | disposition home or self-care (01) ==
LOC: LAB 10:14
PROVIDERS: ATTEND Internal Medicine Cardiovascular Disease
DX: I50.9 Heart failure, unspecified (principal)
CPT/HCPCS: 36415; 82565; 83880; 84132; 84520

== ENCOUNTER → 2019-12-15 | Outpatient (CLI) | payer MEDICARE ==
[~2019-12-15] MED LIST changes: +CARV25TA PO; +FURO1TAB33 PO; +INSLISPI SC; +NITR0.4S29 SL; +POTA10TA51 PO; +SACU1TAB4 PO
[2019-12-15 11:00] VITALS: BP 177/94
[2019-12-15 12:20] VITALS: BP 152/77
== END | disposition home or self-care (01) ==
LOC: CHF HDHVI 12:10
PROVIDERS: ATTEND Internal Medicine Cardiovascular Disease
DX: I11.0 Hypertensive heart disease with heart failure (principal); I50.9 Heart failure, unspecified; I25.10 Atherosclerotic heart disease of native coronary artery without angina pectoris; E11.9 Type 2 diabetes mellitus without complications
CPT/HCPCS: G0463

== ENCOUNTER → 2019-12-19 | Outpatient (CLI) | payer MEDICARE ==
[2019-12-19 10:30] VITALS: BP 139/74
[2019-12-19 11:00] VITALS: BP 133/66
[2019-12-19 11:16] LABS: Basophils # (auto) 0 10 ^3/uL (0-0.2); Basophils % (auto) 0.4 % (0.0-2.0); Eosinophils # (auto) 0.1 10 ^3/uL (0-0.8); Eosinophils % (auto) 1.9 % (0.0-7.0); Hematocrit 43.8 % (41.0-53.0); Hemoglobin 14.7 g/dL (13.5-17.5); Lymphocytes # (auto) 1.3 10 ^3/uL (0.4-5.4); Lymphocytes % (auto) 18.8 % (10.0-50.0); Mean Corpuscular Hemoglobin 28.3 pg (28.0-32.0); Mean Corpuscular Hgb Conc. 33.5 g/dL (32.0-36.0); Mean Corpuscular Volume 84.5 fL (80.0-100.0); Monocytes # (auto) 1.1 10 ^3/uL (0-1.3); Neutrophils # (auto) 4.5 10 ^3/uL (1.6-8.6); Neutrophils % (auto) 63.9 % (37.0-80.0); Nucleated Red Blood Cells % 0.1 %; Platelet Count (auto) 145 10^3/uL (140-450); Red Blood Cells 5.18 10^6/uL (4.5-5.90); Red Cell Distribution Width 15.6 % (11.8-14.3)
[2019-12-19 11:29] LABS: Calcium 8.6 mg/dL (8.5-10.1)
[2019-12-19 11:31] LABS: BUN/Creatinine Ratio 17.5
[2019-12-19 11:33] LABS: INR 1.07 (0.9-1.15); Partial Thromboplastin Time 25.7 sec (23.64-32.05)
== END | disposition home or self-care (01) ==
LOC: Rad HDHVI 09:59
PROVIDERS: ATTEND Internal Medicine Cardiovascular Disease
DX: Z01.812 Encounter for preprocedural laboratory examination (principal); I11.9 Hypertensive heart disease without heart failure; I42.9 Cardiomyopathy, unspecified; Z95.2 Presence of prosthetic heart valve
CPT/HCPCS: 36415; 71046; 80048; 85025; 85610; 85730; 93005; G0463

== ENCOUNTER 2020-01-01 07:26 | Day surgery (SDC) | payer MEDICARE ==
[~2020-01-01] VITALS: Ht 175.3 cm; Wt 112.5 kg
[~2020-01-01 07:26] MED LIST changes: -ATEN-60 PO; -FENT25DI2 TD; -INSUINJ47 IJ; -ISOS20TA56 PO; -PERCOT PO
[2020-01-01] MEDS ORDERED: diphenhdrAMINE HCL 50 MG/1 ML VL ONE (08:18)
[2020-01-01] MEDS ORDERED: fentaNYL CITRATE 100 MCG/2 ML VL ONE (08:18)
[2020-01-01] MEDS ORDERED: VANCOMYCIN HCL 1000 MG VL ONE (08:18)
[2020-01-01] MEDS ORDERED: FAMOTIDINE (10MG/ML) 2ML VL IV ONE (08:19)
[2020-01-01] MEDS ORDERED: VANCOMYCIN 1GM/250ML 250 ML IV ONE (08:19)
[2020-01-01] MEDS ORDERED: MIDAZOLAM HCL 1MG/1ML-2 ML VIAL ONE (08:19)
[2020-01-01] MEDS ORDERED: methylPREDNISolone SOD SUCC 125 MG/2 ML VL ONE (08:20)
[2020-01-01] MEDS ORDERED: ceFAZolin 1GM/50ML 50 ML IV ONE (10:13)
[2020-01-01] MEDS ORDERED: LIDOCAINE 2%HCL (LOCAL ANESTH.) INJ 20ML MDV ONE (10:20)
[2020-01-01] MEDS ORDERED: BACITRACIN INJ 50000 UNIT VIAL ONE (10:50)
== END 2020-01-01 13:15 | disposition home or self-care (01) ==
LOC: CATH 07:26
PROVIDERS: ATTEND Internal Medicine Cardiovascular Disease
DX: Z45.02 Encounter for adjustment and management of automatic implantable cardiac defibrillator (principal); I42.0 Dilated cardiomyopathy; I25.10 Atherosclerotic heart disease of native coronary artery without angina pectoris; I35.0 Nonrheumatic aortic (valve) stenosis; I25.2 Old myocardial infarction; E11.9 Type 2 diabetes mellitus without complications; I11.0 Hypertensive heart disease with heart failure; I50.9 Heart failure, unspecified; Z87.891 Personal history of nicotine dependence; Z91.013 Allergy to seafood; Z91.041 Radiographic dye allergy status; Z98.890 Other specified postprocedural states
CPT/HCPCS: 33249; C1882; J0690; J2250; J3010; J3370; J7030; 99152; 99153; J3490

== ENCOUNTER → 2020-01-07 | Outpatient (CLI) | payer MEDICARE ==
[~2020-01-07] MED LIST changes: +BACITRACIN TOP OINT 1 UD PKG TOP ONE; +CYANOCOBALAMIN (B-12) 1000 MCG/1 ML VIAL IM ONE; +CYANOCOBALAMIN (B-12) 1000 MCG/1 ML VIAL ONE
[2020-01-07 13:58] VITALS: BP 145/75
--- NOTE | 2020-01-07 13:58 | NUR ---
CHF PT ARRIVED TO THE CHF CLINIC FOR F/U S/P PACEMAKER. A/O X4
--- NOTE | 2020-01-07 14:22 | NUR ---
Wound Care Wound care provided per MD order. Patient tolerated well and verbalized dressing care instructions. Follow up in clinic as directed. See e-MAR for medications given during this visit. STERI STRIPS INTACT. WOUND SITE FREE FROM ANY S/S OF INFECTION WITH MINIMAL BRUISING. PT DENIES PAIN. BACITRACIN APPLIED ABOVE SURGICAL SITE DUE TO IRRITATION CAUSED BY TAPE.
[2020-01-07 15:01] VITALS: BP 126/64
--- NOTE | 2020-01-07 15:01 | NUR ---
Discharge Instructions See e-MAR for any mediations given with this visit. Patient education given on disease process. Patient verbalized understanding. Previous labs reviewed. Patient discharged in stable condition with after care instructions and follow up appointment. WILL RETURN IN 1 WEEK FOR F/U WITH NOTE WOUND CARE S/P PACEMAKER DONE BY ARTEM ESTES Addendum: 01/07/20 at 1517 by LEO FISHER RN RN [place] VIT B12 IM ADMIN BY LEO Baker DELTOID
== END | disposition home or self-care (01) ==
LOC: CHF HDHVI 13:48
PROVIDERS: ATTEND Internal Medicine Cardiovascular Disease
DX: I11.0 Hypertensive heart disease with heart failure (principal); I50.9 Heart failure, unspecified; R53.83 Other fatigue; I42.9 Cardiomyopathy, unspecified; I25.10 Atherosclerotic heart disease of native coronary artery without angina pectoris; I25.2 Old myocardial infarction; E11.9 Type 2 diabetes mellitus without complications; Z87.891 Personal history of nicotine dependence
CPT/HCPCS: 96372; G0463; J3420

== ENCOUNTER → 2020-02-02 | Outpatient (CLI) | payer MEDICARE ==
[~2020-02-02] MED LIST changes: -BACITRACIN TOP OINT 1 UD PKG TOP ONE
[2020-02-02 09:50] VITALS: BP 119/71
--- NOTE | 2020-02-02 09:50 | NUR ---
Pt in clinic for high BP issues over the weekend and feeling like his heart is skipping beats and racing. Pt AAOx4, ambulatory, breathing even and unlabored.
--- NOTE | 2020-02-02 10:25 | NUR ---
EKG completed, Vpaced at 76bpm.
[2020-02-02 12:15] VITALS: BP 132/64
--- NOTE | 2020-02-02 12:15 | NUR ---
CHF Clinic Discharge Instructions See e-MAR for any mediations given with this visit. Patient education given on disease process. Patient verbalized understanding. Previous labs reviewed. Patient discharged in stable condition with after care instructions and follow up appointment. Note B12 IM L deltoid admin by Ruma KAHN. Labs drawn by Laura ESTES. EKG done by Ruma KAHN Amlodipine refill called into pt pharmacy
[2020-02-02 12:19] LABS: Basophils # (auto) 0 10 ^3/uL (0-0.2); Basophils % (auto) 0.3 % (0.0-2.0); Eosinophils # (auto) 0.1 10 ^3/uL (0-0.8); Eosinophils % (auto) 0.7 % (0.0-7.0); Hematocrit 45.2 % (41.0-53.0); Hemoglobin 15.1 g/dL (13.5-17.5); Lymphocytes % (auto) 9.7 % (10.0-50.0); Mean Corpuscular Hgb Conc. 33.3 g/dL (32.0-36.0); Monocytes # (auto) 0.8 10 ^3/uL (0-1.3); Monocytes % (auto) 8.4 % (0.0-12.0); Neutrophils # (auto) 7.9 10 ^3/uL (1.6-8.6); Neutrophils % (auto) 80.9 % (37.0-80.0); Nucleated Red Blood Cells % 0.1 %; Platelet Count (auto) 174 10^3/uL (140-450); Red Blood Cells 5.38 10^6/uL (4.5-5.90); Red Cell Distribution Width 14.8 % (11.8-14.3); White Blood Cell 9.8 10^3/uL (4.4-10.8)
[2020-02-02 12:30] LABS: Calcium 8.4 mg/dL (8.5-10.1); Magnesium 2.3 mg/dL (1.6-2.6)
[2020-02-02 12:32] LABS: BUN/Creatinine Ratio 14.7
== END | disposition home or self-care (01) ==
LOC: CHF HDHVI 09:47
PROVIDERS: ATTEND Internal Medicine Cardiovascular Disease
DX: R00.2 Palpitations (principal); I11.0 Hypertensive heart disease with heart failure; I50.9 Heart failure, unspecified; I25.10 Atherosclerotic heart disease of native coronary artery without angina pectoris; I25.2 Old myocardial infarction; I42.8 Other cardiomyopathies; E29.1 Testicular hypofunction; E11.9 Type 2 diabetes mellitus without complications; Z87.891 Personal history of nicotine dependence; Z79.899 Other long term (current) drug therapy
CPT/HCPCS: 36415; 80048; 83036; 83735; 83880; 85025; 93005; 96372; G0463; J3420

== ENCOUNTER → 2020-02-09 | Outpatient (CLI) | payer MEDICARE ==
[~2020-02-09] VITALS: Ht 30.5 cm; Wt 110.3 kg
[~2020-02-09] MED LIST changes: +BACITRACIN TOP OINT 1 UD PKG TOP ONE; -CYANOCOBALAMIN (B-12) 1000 MCG/1 ML VIAL IM ONE; -CYANOCOBALAMIN (B-12) 1000 MCG/1 ML VIAL ONE; +FUROSEMIDE 40 MG/4 ML VIAL IV ONE; +FUROSEMIDE 40 MG/4 ML VIAL ONE; +POTASSIUM CHL 10 Meq TABLET PO ONE; +TESTOSTERONE CYPIONATE 200 MG/ML 1ML VIAL IM ONE
--- NOTE | 2020-02-09 09:45 | NUR ---
PT. TO CHF CLINIC FOR EVAL. AND TX. PT. HAS NOT BEEN SEEN SINCE HIS PACEMAKER GEN CHANGE. SITE WELL HEELED. ONE SUTURE NOTED IN PLACE AND REMOVED PER MD ORDER. SEE WOUND CARE NOTE. ORDERS RECEIVED AND CARRIED OUT. SEE NSG ASSESS.
--- NOTE | 2020-02-09 10:25 | NUR ---
MEDS AND LAB: LABS DRAWN AND SENT PER MD ORDER. PT. MEDICATED WITH LASIX 40MG IVP AND KDUR 10 MEQ PO PER MD ORDER.
--- NOTE | 2020-02-09 10:30 | NUR ---
MEDS: PT. MEDICATED WITH TESTOSTERONE 200MG IM HOMER VILLALOBOS MD ORDER.
[2020-02-09 11:00] VITALS: BP 141/71
--- NOTE | 2020-02-09 11:00 | NUR ---
Discharge Instructions See e-MAR for any mediations given with this visit. Patient education given on disease process. Patient verbalized understanding. Previous labs reviewed. Patient discharged in stable condition with after care instructions and follow up appointment. PT TO HAVE FOLLOW UP APPT. WITH DR. VILLA ON SUN. AT 10:10
[2020-02-09 11:58] LABS: Potassium 4.2 mmol/L (3.5-5.1)
== END | disposition home or self-care (01) ==
LOC: CHF HDHVI 09:33
PROVIDERS: ATTEND Internal Medicine Cardiovascular Disease
DX: E29.1 Testicular hypofunction (principal); I11.0 Hypertensive heart disease with heart failure; I50.9 Heart failure, unspecified; I25.10 Atherosclerotic heart disease of native coronary artery without angina pectoris; I25.2 Old myocardial infarction; I42.8 Other cardiomyopathies; R94.4 Abnormal results of kidney function studies; E11.9 Type 2 diabetes mellitus without complications; Z87.891 Personal history of nicotine dependence; Z79.899 Other long term (current) drug therapy
CPT/HCPCS: 36415; 82306; 82565; 83880; 84132; 84403; 84520; 96372; 96374; G0463; J1071; J1940

== ENCOUNTER → 2020-02-23 | Outpatient (CLI) | payer MEDICARE ==
[~2020-02-23] VITALS: Ht 30.5 cm; Wt 0.5 kg
[~2020-02-23] MED LIST changes: -BACITRACIN TOP OINT 1 UD PKG TOP ONE; +FUROSEMIDE 100 MG/10ML VIAL IV ONE; -FUROSEMIDE 40 MG/4 ML VIAL IV ONE; +POTASSIUM CHL 20 Meq TABLET PO ONE
[2020-02-23 09:50] VITALS: BP 150/72
[2020-02-23 12:03] LABS: Basophils # (auto) 0 10 ^3/uL (0-0.2); Basophils % (auto) 0.4 % (0.0-2.0); Eosinophils # (auto) 0.1 10 ^3/uL (0-0.8); Eosinophils % (auto) 1.6 % (0.0-7.0); Hematocrit 44.8 % (41.0-53.0); Hemoglobin 14.8 g/dL (13.5-17.5); Lymphocytes # (auto) 1.5 10 ^3/uL (0.4-5.4); Lymphocytes % (auto) 15.8 % (10.0-50.0); Mean Corpuscular Hgb Conc. 32.9 g/dL (32.0-36.0); Mean Corpuscular Volume 85.1 fL (80.0-100.0); Monocytes # (auto) 1.2 10 ^3/uL (0-1.3); Monocytes % (auto) 12.6 % (0.0-12.0); Neutrophils # (auto) 6.6 10 ^3/uL (1.6-8.6); Neutrophils % (auto) 69.6 % (37.0-80.0); Nucleated Red Blood Cells % 0.1 %; Platelet Count (auto) 154 10^3/uL (140-450); Red Blood Cells 5.27 10^6/uL (4.5-5.90); Red Cell Distribution Width 15.5 % (11.8-14.3); White Blood Cell 9.5 10^3/uL (4.4-10.8)
[2020-02-23 12:18] LABS: Potassium 4.4 mmol/L (3.5-5.1)
== END | disposition home or self-care (01) ==
LOC: CHF HDHVI 08:56
PROVIDERS: ATTEND Internal Medicine Cardiovascular Disease
DX: I11.0 Hypertensive heart disease with heart failure (principal); I50.9 Heart failure, unspecified; E29.1 Testicular hypofunction; I25.10 Atherosclerotic heart disease of native coronary artery without angina pectoris; I25.2 Old myocardial infarction; I42.8 Other cardiomyopathies; E11.9 Type 2 diabetes mellitus without complications; Z87.891 Personal history of nicotine dependence; Z79.899 Other long term (current) drug therapy
CPT/HCPCS: 36415; 82565; 83880; 84132; 84520; 85025; 96372; 96374; G0463; J1071; J1940; 96365

== ENCOUNTER → 2020-03-08 | Outpatient (CLI) | payer MEDICARE ==
[~2020-03-08] MED LIST changes: +BUMETANIDE 1mg/4ml VIAL (0.25mg/ml) ONE; +BUMETANIDE 2.5mg/10ml (0.25 mg/ml) INJ IV ONE; -FUROSEMIDE 100 MG/10ML VIAL IV ONE; -FUROSEMIDE 40 MG/4 ML VIAL ONE; -POTASSIUM CHL 10 Meq TABLET PO ONE
[2020-03-08 10:12] VITALS: BP 146/70
[2020-03-08 12:25] LABS: Potassium 4.1 mmol/L (3.5-5.1)
== END | disposition home or self-care (01) ==
LOC: CHF HDHVI 09:06
PROVIDERS: ATTEND Internal Medicine Cardiovascular Disease
DX: M10.9 Gout, unspecified (principal); Z79.899 Other long term (current) drug therapy
CPT/HCPCS: 36415; 82565; 84132; 84520; 84550; 96372; 96374; G0463; J1071; J3490

== ENCOUNTER → 2020-03-22 | Outpatient (CLI) | payer MEDICARE ==
[~2020-03-22] VITALS: Ht 30.5 cm; Wt 115.1 kg
[~2020-03-22] MED LIST changes: -BUMETANIDE 1mg/4ml VIAL (0.25mg/ml) ONE; +BUMETANIDE INJECTION 10 ML ONE; +POTASSIUM CHL 10 Meq TABLET PO ONE; -POTASSIUM CHL 20 Meq TABLET PO ONE
--- NOTE | 2020-03-22 09:00 | NUR ---
Patient into clinic for scheduled treatment, AAOx4, ambulatory, breathing even and unlabored.
--- NOTE | 2020-03-22 09:30 | NUR ---
SENT ESCRIPT FOR ULORIC 40MG DAILY TO PATIENT PHARMACY PER MD.
--- NOTE | 2020-03-22 10:03 | NUR ---
TESTOSTERONE IM R GLUTE ADMIN BY ARTEM ESTES
[2020-03-22 10:08] VITALS: BP 129/67
--- NOTE | 2020-03-22 10:08 | NUR ---
CHF Clinic Discharge Instructions See e-MAR for any mediations given with this visit. Patient education given on disease process. Patient verbalized understanding. Previous labs reviewed. Patient discharged in stable condition with after care instructions and follow up appointment. Note Bumex IVP admin by Laura ESETS Potassium PO admin by Laura ESTES Testosterone IM admin by Doe ESTES
== END | disposition home or self-care (01) ==
LOC: CHF HDHVI 08:59
PROVIDERS: ATTEND Internal Medicine Cardiovascular Disease
DX: E29.1 Testicular hypofunction (principal); I11.0 Hypertensive heart disease with heart failure; I50.9 Heart failure, unspecified; I25.10 Atherosclerotic heart disease of native coronary artery without angina pectoris; I25.2 Old myocardial infarction; I42.8 Other cardiomyopathies; E11.9 Type 2 diabetes mellitus without complications; M10.9 Gout, unspecified; R60.0 Localized edema; Z79.899 Other long term (current) drug therapy; Z87.891 Personal history of nicotine dependence
CPT/HCPCS: 36415; 82565; 83880; 84132; 84520; 96372; 96374; G0463; J1071

== ENCOUNTER → 2020-04-05 | Outpatient (CLI) | payer MEDICARE ==
[~2020-04-05] VITALS: Ht 30.5 cm; Wt 115.2 kg
[~2020-04-05] MED LIST changes: -POTASSIUM CHL 10 Meq TABLET PO ONE; +POTASSIUM CHL 20 Meq TABLET PO ONE; -TESTOSTERONE CYPIONATE 200 MG/ML 1ML VIAL IM ONE; +metOLazone 5 MG TAB ONE; +metOLazone 5 MG TAB PO ONE
--- NOTE | 2020-04-05 08:45 | NUR ---
CLINIC PT ARRIVED TO THE [facility] FOR EVAL AND TX. PT IS UP 3LBS SINCE LAST EVAL ON 03/22/20. INTERMITTENT NON COMPLIANCE WITH DIURETICS. Addendum: 04/05/20 at 0924 by LEO FISHER RN RN [place] A/O X4. AMBULATORY
--- NOTE | 2020-04-05 09:05 | NUR ---
IV insertion IV access obtained, via clean sterile technique by inserting 22 gauge catheter at LAC after 1 attempt(s). IV secured properly. No trauma to site. Patient tolerated procedure well. LABS DRAWN AND SENT NOTE INSERTED BY ARTEM ESTES
[2020-04-05 10:00] VITALS: BP 117/62
[2020-04-05 10:30] VITALS: BP 115/61
--- NOTE | 2020-04-05 11:00 | NUR ---
IV removal IV DC'd with sterile technique, catheter fully intact. Pressure dressing applied to site. Patient tolerated procedure well. Discharged with aftercare instructions per MD. NOTE: REMOVED BY ARTEM ESTES
[2020-04-05 11:15] VITALS: BP 116/70
--- NOTE | 2020-04-05 11:15 | NUR ---
Discharge Instructions See e-MAR for any mediations given with this visit. Patient education given on disease process. Patient verbalized understanding. Previous labs reviewed. Patient discharged in stable condition with after care instructions and follow up appointment. PT TO RETURN TO CLINIC IN 2 WEEKS FOR EVAL AND TX. NOTE BUMEX IVP ADMIN BY LEO ESTES KDLUCIANA PO ADMIN BY LEO DRAPER PO ADMIN BY ARTEM ESTES
[2020-04-05 12:01] LABS: Basophils # (auto) 0 10 ^3/uL (0-0.2); Basophils % (auto) 0.3 % (0.0-2.0); Eosinophils # (auto) 0.2 10 ^3/uL (0-0.8); Hematocrit 46.3 % (41.0-53.0); Hemoglobin 15.5 g/dL (13.5-17.5); Lymphocytes # (auto) 1.3 10 ^3/uL (0.4-5.4); Lymphocytes % (auto) 14.5 % (10.0-50.0); Mean Corpuscular Hgb Conc. 33.5 g/dL (32.0-36.0); Mean Corpuscular Volume 86.6 fL (80.0-100.0); Monocytes % (auto) 11.5 % (0.0-12.0); Neutrophils # (auto) 6.2 10 ^3/uL (1.6-8.6); Neutrophils % (auto) 71.7 % (37.0-80.0); Nucleated Red Blood Cells % 0.2 %; Platelet Count (auto) 161 10^3/uL (140-450); Red Blood Cells 5.34 10^6/uL (4.5-5.90); Red Cell Distribution Width 15.2 % (11.8-14.3); White Blood Cell 8.7 10^3/uL (4.4-10.8)
[2020-04-05 12:20] LABS: BUN/Creatinine Ratio 19.3; Calcium 8.2 mg/dL (8.5-10.1); Magnesium 2.4 mg/dL (1.6-2.6)
== END | disposition home or self-care (01) ==
LOC: CHF HDHVI 08:46
PROVIDERS: ATTEND Internal Medicine Cardiovascular Disease
DX: I50.23 Acute on chronic systolic (congestive) heart failure (principal); D64.9 Anemia, unspecified; E83.40 Disorders of magnesium metabolism, unspecified; E11.9 Type 2 diabetes mellitus without complications
CPT/HCPCS: 36415; 80048; 83036; 83735; 83880; 85025; 96374; G0463

== ENCOUNTER → 2020-06-16 | Outpatient (CLI) | payer MEDICARE ==
[~2020-06-16] MED LIST changes: -BUMETANIDE 2.5mg/10ml (0.25 mg/ml) INJ IV ONE; -BUMETANIDE INJECTION 10 ML ONE; -POTASSIUM CHL 20 Meq TABLET PO ONE; -metOLazone 5 MG TAB ONE; -metOLazone 5 MG TAB PO ONE
== END | disposition home or self-care (01) ==
LOC: Rad HDHVI 13:10
PROVIDERS: ATTEND Internal Medicine Cardiovascular Disease
DX: E11.21 Type 2 diabetes mellitus with diabetic nephropathy (principal)

== ENCOUNTER → 2020-09-14 | Outpatient (CLI) | payer MEDICARE ==
[~2020-09-14] MED LIST changes: +CYANOCOBALAMIN (B-12) 1000 MCG/1 ML VIAL IM ONE; +CYANOCOBALAMIN (B-12) 1000 MCG/1 ML VIAL ONE; +OXYC30TA77 PO; +TESTOSTERONE CYPIONATE 200 MG/ML 1ML VIAL IM ONE
[2020-09-14 10:36] VITALS: BP 144/77
[2020-09-14 11:59] LABS: Basophils # (auto) 0 10 ^3/uL (0-0.2); Basophils % (auto) 0.3 % (0.0-2.0); Eosinophils # (auto) 0.1 10 ^3/uL (0-0.8); Eosinophils % (auto) 0.8 % (0.0-7.0); Hemoglobin 13.9 g/dL (13.5-17.5); Lymphocytes # (auto) 0.7 10 ^3/uL (0.4-5.4); Lymphocytes % (auto) 8.9 % (10.0-50.0); Mean Corpuscular Hgb Conc. 33.2 g/dL (32.0-36.0); Mean Corpuscular Volume 87.4 fL (80.0-100.0); Monocytes # (auto) 0.7 10 ^3/uL (0-1.3); Monocytes % (auto) 9.5 % (0.0-12.0); Neutrophils % (auto) 80.5 % (37.0-80.0); Platelet Count (auto) 150 10^3/uL (140-450); Red Blood Cells 4.81 10^6/uL (4.5-5.90); Red Cell Distribution Width 14.7 % (11.8-14.3); White Blood Cell 7.4 10^3/uL (4.4-10.8)
[2020-09-14 12:16] LABS: Albumin 3.5 g/dL (3.4-5.0); Calcium 8.5 mg/dL (8.5-10.1); Magnesium 2.5 mg/dL (1.6-2.6); Potassium 3.8 mmol/L (3.5-5.1)
[2020-09-14 12:20] LABS: BUN/Creatinine Ratio 15.5; Bilirubin, Total 0.6 mg/dL (0.2-1.0); Total Protein 6.8 g/dL (6.4-8.2)
== END | disposition home or self-care (01) ==
LOC: CHF HDHVI 09:51
PROVIDERS: ATTEND Internal Medicine Cardiovascular Disease
DX: E29.1 Testicular hypofunction (principal); R53.83 Other fatigue; I11.0 Hypertensive heart disease with heart failure; I50.23 Acute on chronic systolic (congestive) heart failure; E11.21 Type 2 diabetes mellitus with diabetic nephropathy; I25.10 Atherosclerotic heart disease of native coronary artery without angina pectoris; I25.2 Old myocardial infarction; I42.8 Other cardiomyopathies; Z87.891 Personal history of nicotine dependence; Z79.899 Other long term (current) drug therapy
CPT/HCPCS: 36415; 80053; 83036; 83735; 83880; 84443; 85025; 96372; G0463; J1071; J3420

== ENCOUNTER → 2020-09-27 | Outpatient (CLI) | payer MEDICARE ==
[~2020-09-27] MED LIST changes: -CYANOCOBALAMIN (B-12) 1000 MCG/1 ML VIAL IM ONE; -CYANOCOBALAMIN (B-12) 1000 MCG/1 ML VIAL ONE; -OXYC30TA77 PO; -TESTOSTERONE CYPIONATE 200 MG/ML 1ML VIAL IM ONE
== END | disposition home or self-care (01) ==
LOC: Rad HDHVI 08:57
PROVIDERS: ATTEND Internal Medicine Cardiovascular Disease
DX: I08.8 Other rheumatic multiple valve diseases (principal); I27.21 Secondary pulmonary arterial hypertension; I50.43 Acute on chronic combined systolic (congestive) and diastolic (congestive) heart failure
CPT/HCPCS: 93306

== ENCOUNTER → 2020-10-11 | Outpatient (CLI) | payer MEDICARE ==
[~2020-10-11] MED LIST changes: +IOHEXOL 350 MG/ML 100ML IJ ONE; +OXYC30TA77 PO; +diphenhdrAMINE HCL 50 MG/1 ML VL IV ONE; +diphenhdrAMINE HCL 50 MG/1 ML VL ONE; +methylPREDNISolone SOD SUCC 125 MG/2 ML VL IV ONE; +methylPREDNISolone SOD SUCC 125 MG/2 ML VL ONE
[2020-10-11 10:34] VITALS: BP 156/75
[2020-10-11 12:56] VITALS: BP 174/81
== END | disposition home or self-care (01) ==
LOC: Rad HDHVI 10:23
PROVIDERS: ATTEND Internal Medicine Cardiovascular Disease
DX: R94.4 Abnormal results of kidney function studies (principal); R10.9 Unspecified abdominal pain; R04.2 Hemoptysis; I11.0 Hypertensive heart disease with heart failure; I50.42 Chronic combined systolic (congestive) and diastolic (congestive) heart failure; I25.10 Atherosclerotic heart disease of native coronary artery without angina pectoris; I27.21 Secondary pulmonary arterial hypertension; I25.2 Old myocardial infarction; I42.8 Other cardiomyopathies; E11.21 Type 2 diabetes mellitus with diabetic nephropathy; Z79.899 Other long term (current) drug therapy; Z87.891 Personal history of nicotine dependence
CPT/HCPCS: 36415; 71275; 82565; 84520; 96374; 96375; G0463; J1200; J2930; Q9967

== ENCOUNTER 2020-10-15 15:44 | Inpatient (IN) | payer MEDICARE ==
[~2020-10-15] VITALS: Ht 177.8 cm; Wt 114.0 kg
[~2020-10-15 15:44] MED LIST changes: -IOHEXOL 350 MG/ML 100ML IJ ONE; -OXYC30TA77 PO; -diphenhdrAMINE HCL 50 MG/1 ML VL IV ONE; -diphenhdrAMINE HCL 50 MG/1 ML VL ONE; -methylPREDNISolone SOD SUCC 125 MG/2 ML VL IV ONE; -methylPREDNISolone SOD SUCC 125 MG/2 ML VL ONE
[2020-10-15 16:54] LABS: Basophils # (auto) 0 10 ^3/uL (0-0.2); Basophils % (auto) 0.2 % (0.0-2.0); Eosinophils # (auto) 0 10 ^3/uL (0-0.8); Eosinophils % (auto) 0.1 % (0.0-7.0); Hematocrit 45.9 % (41.0-53.0); Hemoglobin 15.3 g/dL (13.5-17.5); Lymphocytes # (auto) 0.3 10 ^3/uL (0.4-5.4); Lymphocytes % (auto) 2.3 % (10.0-50.0); Mean Corpuscular Hemoglobin 28.8 pg (28.0-32.0); Mean Corpuscular Hgb Conc. 33.4 g/dL (32.0-36.0); Monocytes # (auto) 0.5 10 ^3/uL (0-1.3); Neutrophils % (auto) 93.4 % (37.0-80.0); Red Blood Cells 5.33 10^6/uL (4.5-5.90); Red Cell Distribution Width 14.7 % (11.8-14.3); White Blood Cell 12.9 10^3/uL (4.4-10.8)
[2020-10-15 17:15] LABS: Calcium 8.2 mg/dL (8.5-10.1); Potassium 3.6 mmol/L (3.5-5.1)
[2020-10-15 17:18] LABS: Lactic Acid w/Reflex 2.9 mmol/L (0.4-2.0)
[2020-10-15 17:21] LABS: BUN/Creatinine Ratio 21.2; Bilirubin, Total 1.8 mg/dL (0.2-1.0); Total Protein 7.4 g/dL (6.4-8.2)
[2020-10-15] MEDS ORDERED: cefTRIAXone 1GM/50ML D5W 50 ML IV ONE (21:30)
[2020-10-15] MEDS ORDERED: AZITHROMYCIN 500MG/ 250ML 250 ML IV ONE (21:30)
[2020-10-15] MEDS ORDERED: NITROGLYCERIN 0.4 MG SL TAB SL PRN (23:15)
[2020-10-15] MEDS ORDERED: DOCUSATE SOD 100 MG CAP PO PRN (23:15)
[2020-10-15] MEDS ORDERED: ONDANSETRON HCL 4 MG/2 ML VIAL IV PRN (23:15)
[2020-10-15] MEDS ORDERED: ACETAMINOPHEN 500 MG TAB PO PRN (23:15)
[2020-10-15] MEDS ORDERED: MORPHINE SULFATE INJECTION 2 MG/ML SYRG IV PRN (23:15)
[2020-10-15] MEDS ORDERED: DEXTROSE (50%) 50ML SYRG IV PRN (23:15)
[2020-10-15] MEDS: DexAMETHasone SOD PHOS 10MG/1ML VIAL INJ IV SCH (23:57)
[2020-10-16] MEDS ORDERED: INSULIN LANTUS (GLARGINE) 1 /0.01ml (100units/ml) SC ONE ×2 (00:25→01:15)
[2020-10-16] MEDS ORDERED: InsuLIN REG 1unit/0.01ml Soln (100units/ml) ONE (00:26)
[2020-10-16] MEDS ORDERED: InsuLIN REG 1unit/0.01ml Soln (100units/ml) SC ONE (01:15)
[2020-10-16 05:27] LABS: Basophils # (auto) 0 10 ^3/uL (0-0.2); Basophils % (auto) 0.2 % (0.0-2.0); Eosinophils # (auto) 0 10 ^3/uL (0-0.8); Hemoglobin 14.8 g/dL (13.5-17.5); Lymphocytes # (auto) 0.3 10 ^3/uL (0.4-5.4); Lymphocytes % (auto) 3.1 % (10.0-50.0); Mean Corpuscular Hemoglobin 29.4 pg (28.0-32.0); Mean Corpuscular Hgb Conc. 34.4 g/dL (32.0-36.0); Mean Corpuscular Volume 85.4 fL (80.0-100.0); Monocytes # (auto) 0.5 10 ^3/uL (0-1.3); Monocytes % (auto) 4.9 % (0.0-12.0); Neutrophils # (auto) 9.6 10 ^3/uL (1.6-8.6); Neutrophils % (auto) 91.8 % (37.0-80.0); Nucleated Red Blood Cells % 0.2 %; Red Blood Cells 5.04 10^6/uL (4.5-5.90); Red Cell Distribution Width 14.4 % (11.8-14.3); White Blood Cell 10.5 10^3/uL (4.4-10.8)
[2020-10-16 05:42] LABS: Albumin 2.6 g/dL (3.4-5.0); Calcium 7.9 mg/dL (8.5-10.1)
[2020-10-16 05:49] LABS: Bilirubin, Total 1.1 mg/dL (0.2-1.0); Total Protein 6.7 g/dL (6.4-8.2)
[2020-10-16 06:11] LABS: BUN/Creatinine Ratio 23.4
[2020-10-16] MEDS: SODIUM CHLOR 0.9% PF (SALINE LOCK) 10ML VIAL/SYR IV SCH ×2 (06:11→15:21)
[2020-10-16] MEDS ORDERED: InsuLIN REG 1unit/0.01ml Soln (100units/ml) SC SCH ×2 (07:00→22:00)
[2020-10-16] MEDS ORDERED: ACCU-CHEK COMFORT CURVE STRIP VI SCH (07:00)
[2020-10-16] MEDS ORDERED: DEXTROSE (50%) 50ML SYRG IV PRN (07:00)
[2020-10-16] MEDS: ACCU-CHEK COMFORT CURVE STRIP VI SCH ×3 (07:42→18:12)
[2020-10-16] MEDS: InsuLIN REG 1unit/0.01ml Soln (100units/ml) SC SCH ×4 (07:45→18:12)
[2020-10-16] MEDS: INSULIN LANTUS (GLARGINE) 1 /0.01ml (100units/ml) SC SCH (07:46)
[2020-10-16] MEDS: FAMOTIDINE (10MG/ML) 2ML VL IV SCH (09:51)
[2020-10-16] MEDS: ZINC SULFATE 220mg CAP or TAB PO SCH (09:56)
[2020-10-16] MEDS: ASCORBIC ACID 1,000 MG TAB PO SCH (09:56)
[2020-10-16] MEDS: MULTIPLE VITAMIN TAB PO SCH (09:56)
[2020-10-16] MEDS: CHOLECALCIFEROL (VITD3) 2,000 UNIT CAP/TAB PO SCH (09:57)
[2020-10-16] MEDS: HEPARIN SODIUM (PORCINE) 5000 UNITS/ML 1ML VIAL SC SCH (09:58)
[2020-10-16] MEDS: BUDESONIDE (INHALATION) 180 MCG IH IN SCH ×2 (10:00→20:35)
[2020-10-16] MEDS: DOXYCYCLINE 100MG/250ML 250 ML IV SCH (10:19)
[2020-10-16] MEDS ORDERED: REMDESIVIR IV SCH (11:30)
[2020-10-16] MEDS ORDERED: IVERMECTIN 3 MG TAB PO SCH (12:19)
[2020-10-16] MEDS: POTASSIUM CHL 20 Meq TABLET PO SCH (12:35)
[2020-10-16] MEDS: FUROSEMIDE 40 MG/4 ML VIAL IV SCH (12:45)
[2020-10-16] MEDS ORDERED: IPRATROPIUM BROM 0.5 MG/2.5ML INH SOL NEB SCH (14:00)
[2020-10-16] MEDS ORDERED: REMDESIVIR 200 MG in NS 210ml LOADING DOSE ADULT IV ONE (15:00)
[2020-10-16 18:20] VITALS: BP 150/71
[2020-10-17] VITALS: BP 139/75
[2020-10-17] MEDS: FAMOTIDINE (10MG/ML) 2ML VL IV SCH ×3 (00:07→21:51)
[2020-10-17] MEDS: SODIUM CHLOR 0.9% PF (SALINE LOCK) 10ML VIAL/SYR IV SCH ×4 (00:07→21:51)
[2020-10-17] MEDS: ACCU-CHEK COMFORT CURVE STRIP VI SCH ×5 (00:07→21:53)
[2020-10-17] MEDS: DOXYCYCLINE 100MG/250ML 250 ML IV SCH ×3 (00:07→21:52)
[2020-10-17] MEDS: DexAMETHasone SOD PHOS 10MG/1ML VIAL INJ IV SCH ×2 (00:07→21:51)
[2020-10-17] MEDS: HEPARIN SODIUM (PORCINE) 5000 UNITS/ML 1ML VIAL SC SCH ×3 (00:08→21:04)
[2020-10-17] MEDS: InsuLIN REG 1unit/0.01ml Soln (100units/ml) SC SCH ×5 (01:18→20:59)
[2020-10-17] MEDS: INSULIN LANTUS (GLARGINE) 1 /0.01ml (100units/ml) SC SCH ×3 (01:18→21:03)
[2020-10-17] MEDS: ALBUTEROL SULF HFA 90MCG INH 200DOSE IN PRN ×2 (06:43→19:13)
[2020-10-17] MEDS: BUDESONIDE (INHALATION) 180 MCG IH IN SCH ×2 (06:43→19:13)
[2020-10-17 08:00] VITALS: BP 140/67
[2020-10-17] MEDS: CHOLECALCIFEROL (VITD3) 2,000 UNIT CAP/TAB PO SCH (10:09)
[2020-10-17] MEDS: MULTIPLE VITAMIN TAB PO SCH (10:10)
[2020-10-17] MEDS: ZINC SULFATE 220mg CAP or TAB PO SCH (10:10)
[2020-10-17] MEDS: POTASSIUM CHL 20 Meq TABLET PO SCH (10:10)
[2020-10-17] MEDS: FUROSEMIDE 40 MG/4 ML VIAL IV SCH (10:10)
[2020-10-17] MEDS: ASCORBIC ACID 1,000 MG TAB PO SCH (10:10)
[2020-10-17 10:57] LABS: Albumin 2.5 g/dL (3.4-5.0); Potassium 3.6 mmol/L (3.5-5.1)
[2020-10-17 11:02] LABS: BUN/Creatinine Ratio 28.4; Bilirubin, Total 1.2 mg/dL (0.2-1.0); Total Protein 6.1 g/dL (6.4-8.2)
[2020-10-17 12:21] LABS: Alcohol, Urine < 3.0 mg/dL (0-10); Amphetamine Screen, Urine NEGATIVE (NEGATIVE); Barbiturate Scree,Urine NEGATIVE (NEGATIVE); Benzodiazephine Screen, Urine NEGATIVE (NEGATIVE); Cannabinoid Screen, Urine NEGATIVE (NEGATIVE); Cocaine Screen, Urine NEGATIVE (NEGATIVE); Opiate Scree,Urine NEGATIVE (NEGATIVE); Phencyclidine Screen, Urine NEGATIVE (NEGATIVE)
[2020-10-17] MEDS ORDERED: INSULIN LANTUS (GLARGINE) 1 /0.01ml (100units/ml) SC ONE (12:45)
[2020-10-17] MEDS ORDERED: OXYC30TA77 PO (14:14)
[2020-10-17] MEDS: REMDESIVIR 100mg 100 MG in SODIUM CHL 0.9% 230 ML IV SCH (14:45)
[2020-10-17 16:19] VITALS: BP 149/79
[2020-10-17] MEDS: IVERMECTIN 3 MG TAB PO SCH (16:39)
[2020-10-17] MEDS: HYDROcodone-ACET 5/325MG TAB PO PRN (18:51)
[2020-10-17] MEDS: ENTRESTO PO SCH (21:52)
[2020-10-17] MEDS: CARVEDILOL 12.5 MG TAB PO SCH (21:53)
[2020-10-18] VITALS: BP 131/56
[2020-10-18] MEDS: INSULIN LANTUS (GLARGINE) 1 /0.01ml (100units/ml) SC SCH ×2 (05:19→22:17)
[2020-10-18] MEDS: InsuLIN REG 1unit/0.01ml Soln (100units/ml) SC SCH ×4 (05:22→22:17)
[2020-10-18] MEDS: ACCU-CHEK COMFORT CURVE STRIP VI SCH ×4 (05:22→22:24)
[2020-10-18] MEDS: SODIUM CHLOR 0.9% PF (SALINE LOCK) 10ML VIAL/SYR IV SCH ×3 (05:22→22:19)
[2020-10-18] MEDS: HYDROcodone-ACET 5/325MG TAB PO PRN (06:04)
[2020-10-18 06:54] LABS: Basophils # (auto) 0 10 ^3/uL (0-0.2); Basophils % (auto) 0.1 % (0.0-2.0); Eosinophils # (auto) 0 10 ^3/uL (0-0.8); Hematocrit 40.3 % (41.0-53.0); Hemoglobin 13.8 g/dL (13.5-17.5); Lymphocytes # (auto) 0.4 10 ^3/uL (0.4-5.4); Mean Corpuscular Hgb Conc. 34.4 g/dL (32.0-36.0); Mean Corpuscular Volume 84.5 fL (80.0-100.0); Monocytes # (auto) 0.7 10 ^3/uL (0-1.3); Monocytes % (auto) 5.5 % (0.0-12.0); Neutrophils # (auto) 11.9 10 ^3/uL (1.6-8.6); Neutrophils % (auto) 91.4 % (37.0-80.0); Nucleated Red Blood Cells % 0.1 %; Red Blood Cells 4.77 10^6/uL (4.5-5.90); Red Cell Distribution Width 14.5 % (11.8-14.3)
[2020-10-18 07:07] LABS: INR 1.3 (0.9-1.15); Partial Thromboplastin Time 26.4 sec (23.0-31.2)
[2020-10-18 07:20] LABS: Potassium 3.8 mmol/L (3.5-5.1)
[2020-10-18 07:33] LABS: Albumin 2.5 g/dL (3.4-5.0); BUN/Creatinine Ratio 26.7; Calcium 7.6 mg/dL (8.5-10.1); Magnesium 2.2 mg/dL (1.6-2.6); Total Protein 5.8 g/dL (6.4-8.2)
[2020-10-18] MEDS: BUDESONIDE (INHALATION) 180 MCG IH IN SCH ×2 (07:54→22:00)
[2020-10-18 08:00] VITALS: BP 108/50
[2020-10-18] MEDS: FUROSEMIDE 40 MG/4 ML VIAL IV SCH (08:59)
[2020-10-18] MEDS: FAMOTIDINE (10MG/ML) 2ML VL IV SCH ×2 (08:59→22:18)
[2020-10-18] MEDS: DOXYCYCLINE 100MG/250ML 250 ML IV SCH ×2 (09:00→22:19)
[2020-10-18] MEDS: ZINC SULFATE 220mg CAP or TAB PO SCH (09:00)
[2020-10-18] MEDS: ENTRESTO PO SCH ×2 (09:00→22:23)
[2020-10-18] MEDS: MULTIPLE VITAMIN TAB PO SCH (09:02)
[2020-10-18] MEDS: POTASSIUM CHL 20 Meq TABLET PO SCH (09:02)
[2020-10-18] MEDS: IVERMECTIN 3 MG TAB PO SCH (09:04)
[2020-10-18] MEDS: ASCORBIC ACID 1,000 MG TAB PO SCH (09:04)
[2020-10-18] MEDS: CHOLECALCIFEROL (VITD3) 2,000 UNIT CAP/TAB PO SCH (09:05)
[2020-10-18] MEDS: HEPARIN SODIUM (PORCINE) 5000 UNITS/ML 1ML VIAL SC SCH (09:35)
[2020-10-18] MEDS: CARVEDILOL 12.5 MG TAB PO SCH ×2 (10:00→22:21)
[2020-10-18] MEDS ORDERED: ENOXAPARIN SOD 40 MG/0.4 ML SYRINGE SC SCH (11:45)
[2020-10-18] MEDS ORDERED: ENOXAPARIN SOD 40 MG/0.4 ML SYRINGE SC ONE (13:30)
[2020-10-18] MEDS: oxyCODONE HCL 5MG TAB PO PRN (13:58)
[2020-10-18] MEDS: REMDESIVIR 100mg 100 MG in SODIUM CHL 0.9% 230 ML IV SCH (15:40)
[2020-10-18 16:00] VITALS: BP 133/70
[2020-10-18] MEDS: DexAMETHasone SOD PHOS 10MG/1ML VIAL INJ IV SCH (22:18)
[2020-10-18] MEDS: ENOXAPARIN SOD 60 MG/0.6 ML SYRINGE SC SCH (22:24)
[2020-10-19] VITALS: BP 127/65
[2020-10-19] MEDS: ALBUTEROL SULF HFA 90MCG INH 200DOSE IN PRN ×2 (00:23→07:45)
[2020-10-19] MEDS: oxyCODONE HCL 5MG TAB PO PRN (02:42)
[2020-10-19] MEDS: SODIUM CHLOR 0.9% PF (SALINE LOCK) 10ML VIAL/SYR IV SCH ×2 (05:40→13:57)
[2020-10-19] MEDS: INSULIN LANTUS (GLARGINE) 1 /0.01ml (100units/ml) SC SCH (05:42)
[2020-10-19] MEDS: InsuLIN REG 1unit/0.01ml Soln (100units/ml) SC SCH ×2 (05:42→11:59)
[2020-10-19] MEDS: ACCU-CHEK COMFORT CURVE STRIP VI SCH ×2 (05:45→11:58)
[2020-10-19 06:37] LABS: Basophils # (auto) 0 10 ^3/uL (0-0.2); Eosinophils # (auto) 0 10 ^3/uL (0-0.8); Hematocrit 41.4 % (41.0-53.0); Hemoglobin 13.7 g/dL (13.5-17.5); Lymphocytes # (auto) 0.4 10 ^3/uL (0.4-5.4); Lymphocytes % (auto) 2.8 % (10.0-50.0); Mean Corpuscular Hemoglobin 28.2 pg (28.0-32.0); Mean Corpuscular Hgb Conc. 33.1 g/dL (32.0-36.0); Mean Corpuscular Volume 85.3 fL (80.0-100.0); Monocytes # (auto) 1.1 10 ^3/uL (0-1.3); Neutrophils % (auto) 89.2 % (37.0-80.0); Nucleated Red Blood Cells % 0.1 %; Red Blood Cells 4.85 10^6/uL (4.5-5.90); Red Cell Distribution Width 14.5 % (11.8-14.3); White Blood Cell 13.4 10^3/uL (4.4-10.8)
[2020-10-19 07:08] LABS: Albumin 2.4 g/dL (3.4-5.0); Calcium 7.8 mg/dL (8.5-10.1); Potassium 3.8 mmol/L (3.5-5.1)
[2020-10-19 07:25] LABS: BUN/Creatinine Ratio 28.1; Bilirubin, Total 0.8 mg/dL (0.2-1.0); Total Protein 5.7 g/dL (6.4-8.2)
[2020-10-19] MEDS: BUDESONIDE (INHALATION) 180 MCG IH IN SCH (07:45)
[2020-10-19 08:00] VITALS: BP 124/69
[2020-10-19] MEDS: FUROSEMIDE 40 MG/4 ML VIAL IV SCH (09:36)
[2020-10-19] MEDS: FAMOTIDINE (10MG/ML) 2ML VL IV SCH (09:36)
[2020-10-19] MEDS: ENTRESTO PO SCH (09:37)
[2020-10-19] MEDS: ZINC SULFATE 220mg CAP or TAB PO SCH (09:37)
[2020-10-19] MEDS: DOXYCYCLINE 100MG/250ML 250 ML IV SCH (09:37)
[2020-10-19] MEDS: CARVEDILOL 12.5 MG TAB PO SCH (09:38)
[2020-10-19] MEDS: IVERMECTIN 3 MG TAB PO SCH (09:38)
[2020-10-19] MEDS: POTASSIUM CHL 20 Meq TABLET PO SCH (09:38)
[2020-10-19] MEDS: MULTIPLE VITAMIN TAB PO SCH (09:38)
[2020-10-19] MEDS: ASCORBIC ACID 1,000 MG TAB PO SCH (09:39)
[2020-10-19] MEDS: CHOLECALCIFEROL (VITD3) 2,000 UNIT CAP/TAB PO SCH (09:39)
[2020-10-19] MEDS: ENOXAPARIN SOD 60 MG/0.6 ML SYRINGE SC SCH (09:39)
[2020-10-19] MEDS ORDERED: ENOXAPARIN SOD 40 MG/0.4 ML SYRINGE SC SCH (10:00)
[2020-10-19 14:45] VITALS: BP 130/72
== END 2020-10-19 16:00 | disposition home or self-care (01) | DRG 177 ==
LOC: ER 15:44 → TELE 23:15 → TELE-WESTW 10-16 18:05
PROVIDERS: ADMIT Nurse Practitioner Family; ATTEND Internal Medicine Cardiovascular Disease
PROC: XW033E5 Introduction of Remdesivir Anti-infective into Peripheral Vein, Percutaneous Approach, New Technology Group 5 (ICD-10-PCS; principal; 2020-10-15)
DX: U07.1 COVID-19 (principal); J12.82 Pneumonia due to coronavirus disease 2019; J96.01 Acute respiratory failure with hypoxia; I50.23 Acute on chronic systolic (congestive) heart failure; E43 Unspecified severe protein-calorie malnutrition; E87.2 Acidosis; E87.1 Hypo-osmolality and hyponatremia; J44.0 Chronic obstructive pulmonary disease with (acute) lower respiratory infection; E11.65 Type 2 diabetes mellitus with hyperglycemia; I25.5 Ischemic cardiomyopathy; E78.5 Hyperlipidemia, unspecified; I11.0 Hypertensive heart disease with heart failure; G89.29 Other chronic pain; I25.10 Atherosclerotic heart disease of native coronary artery without angina pectoris; Z82.49 Family history of ischemic heart disease and other diseases of the circulatory system; Z95.1 Presence of aortocoronary bypass graft; Z83.3 Family history of diabetes mellitus; Z95.810 Presence of automatic (implantable) cardiac defibrillator; Z91.013 Allergy to seafood; Z91.041 Radiographic dye allergy status; Z68.36 Body mass index [BMI] 36.0-36.9, adult; I25.2 Old myocardial infarction
CPT/HCPCS: 36415; 71045; 80053; 80307; 82306; 82728; 82962; 83036; 83605; 83615; 83735; 84100; 84443; 84484; 85025; 85379; 85610; 85730; 87040; 87426; 93005; 94640; 96365; 96366; 96367; 96368; 96372; 96375; G0378; J0696; J1100; J1815; J3490

== ENCOUNTER → 2020-12-07 | Outpatient (CLI) | payer MEDICARE ==
[~2020-12-07] MED LIST changes: +BUMETANIDE 1mg/4ml VIAL (0.25mg/ml) ONE; +BUMETANIDE 2.5mg/10ml (0.25 mg/ml) INJ IV ONE; +CYANOCOBALAMIN (B-12) 1000 MCG/1 ML VIAL IM ONE; +CYANOCOBALAMIN (B-12) 1000 MCG/1 ML VIAL ONE; +MAGNESIUM OXIDE 400 MG TAB ONE; +MAGNESIUM OXIDE 400 MG TAB PO ONE; +OXYC30TA77 PO; +POTASSIUM CHL 10 Meq TABLET PO ONE; +POTASSIUM CHL 20 Meq TABLET PO ONE; +TESTOSTERONE CYPIONATE 200 MG/ML 1ML VIAL IM ONE; +metOLazone 5 MG TAB ONE; +metOLazone 5 MG TAB PO ONE
[2020-12-07 09:27] LABS: Basophils # (auto) 0 10 ^3/uL (0-0.2); Basophils % (auto) 0.4 % (0.0-2.0); Eosinophils # (auto) 0.1 10 ^3/uL (0-0.8); Eosinophils % (auto) 1.5 % (0.0-7.0); Hematocrit 41.7 % (41.0-53.0); Lymphocytes # (auto) 0.8 10 ^3/uL (0.4-5.4); Lymphocytes % (auto) 10.6 % (10.0-50.0); Mean Corpuscular Hemoglobin 28.8 pg (28.0-32.0); Mean Corpuscular Hgb Conc. 33.6 g/dL (32.0-36.0); Mean Corpuscular Volume 85.8 fL (80.0-100.0); Monocytes # (auto) 0.9 10 ^3/uL (0-1.3); Monocytes % (auto) 11.6 % (0.0-12.0); Neutrophils % (auto) 75.9 % (37.0-80.0); Nucleated Red Blood Cells % 0.1 %; Platelet Count (auto) 202 10^3/uL (140-450); Red Blood Cells 4.86 10^6/uL (4.5-5.90); Red Cell Distribution Width 15.8 % (11.8-14.3)
[2020-12-07 09:45] LABS: Albumin 3.4 g/dL (3.4-5.0); Calcium 8.3 mg/dL (8.5-10.1); Magnesium 2.1 mg/dL (1.6-2.6); Potassium 3.4 mmol/L (3.5-5.1)
[2020-12-07 09:49] LABS: BUN/Creatinine Ratio 14.5; Bilirubin, Total 0.8 mg/dL (0.2-1.0); Total Protein 7.1 g/dL (6.4-8.2)
[2020-12-07 10:00] VITALS: BP 147/85
[2020-12-07 12:00] VITALS: BP 153/79
[2020-12-07 13:05] VITALS: BP 165/77
== END | disposition home or self-care (01) ==
LOC: CHF HDHVI 09:39
PROVIDERS: ATTEND Internal Medicine Cardiovascular Disease
DX: I11.0 Hypertensive heart disease with heart failure (principal); I50.23 Acute on chronic systolic (congestive) heart failure; E29.1 Testicular hypofunction; R06.02 Shortness of breath; I25.10 Atherosclerotic heart disease of native coronary artery without angina pectoris; I25.2 Old myocardial infarction; J44.9 Chronic obstructive pulmonary disease, unspecified; G89.29 Other chronic pain; E11.9 Type 2 diabetes mellitus without complications; Z95.810 Presence of automatic (implantable) cardiac defibrillator; Z95.1 Presence of aortocoronary bypass graft
CPT/HCPCS: 36415; 71046; 80053; 83735; 83880; 85025; 96372; 96374; G0463; J1071; J3420; J3490; 96365

== ENCOUNTER → 2020-12-15 | Outpatient (CLI) | payer MEDICARE ==
[~2020-12-15] MED LIST changes: -MAGNESIUM OXIDE 400 MG TAB ONE; -MAGNESIUM OXIDE 400 MG TAB PO ONE; -POTASSIUM CHL 10 Meq TABLET PO ONE; -POTASSIUM CHL 20 Meq TABLET PO ONE; -metOLazone 5 MG TAB ONE; -metOLazone 5 MG TAB PO ONE
[2020-12-15 10:43] VITALS: BP 121/66
[2020-12-15 12:19] LABS: Potassium 4.3 mmol/L (3.5-5.1)
[2020-12-15 12:41] LABS: BUN/Creatinine Ratio 19.8; Calcium 8.2 mg/dL (8.5-10.1); Magnesium 2.1 mg/dL (1.6-2.6)
== END | disposition home or self-care (01) ==
LOC: CHF HDHVI 09:58
PROVIDERS: ATTEND Internal Medicine Cardiovascular Disease
DX: I11.0 Hypertensive heart disease with heart failure (principal); I50.23 Acute on chronic systolic (congestive) heart failure; E29.1 Testicular hypofunction; R53.83 Other fatigue; E11.65 Type 2 diabetes mellitus with hyperglycemia; I25.10 Atherosclerotic heart disease of native coronary artery without angina pectoris; I25.2 Old myocardial infarction; J44.9 Chronic obstructive pulmonary disease, unspecified; G89.29 Other chronic pain; Z95.810 Presence of automatic (implantable) cardiac defibrillator; Z95.1 Presence of aortocoronary bypass graft; Z79.899 Other long term (current) drug therapy; Z86.16 Personal history of COVID-19
CPT/HCPCS: 36415; 80048; 82306; 83036; 83735; 83880; 96372; 96374; G0463; J1071; J3420; J3490

== ENCOUNTER → 2021-01-19 | Outpatient (CLI) | payer MEDICARE ==
[~2021-01-19] VITALS: Ht 30.5 cm; Wt 116.8 kg
[2021-01-19] VITALS (11 sets, daily range): BP systolic 124–167; BP diastolic 61–88
[~2021-01-19] MED LIST changes: -BUMETANIDE 1mg/4ml VIAL (0.25mg/ml) ONE; -BUMETANIDE 2.5mg/10ml (0.25 mg/ml) INJ IV ONE; -CYANOCOBALAMIN (B-12) 1000 MCG/1 ML VIAL IM ONE; -CYANOCOBALAMIN (B-12) 1000 MCG/1 ML VIAL ONE; +FUROSEMIDE 100 MG/10ML VIAL IV ONE; +FUROSEMIDE 20 MG/2 ML VIAL ONE; +FUROSEMIDE INJECTION 10 ML ONE; +MILRINONE 20MG/100ML 100 ML IV ONE; +POTASSIUM CHL 20 Meq TABLET PO ONE; -TESTOSTERONE CYPIONATE 200 MG/ML 1ML VIAL IM ONE; +metOLazone 5 MG TAB ONE; +metOLazone 5 MG TAB PO ONE
[2021-01-19 15:52] LABS: BUN/Creatinine Ratio 19.5; Calcium 8.9 mg/dL (8.5-10.1); Magnesium 2.5 mg/dL (1.6-2.6); Potassium 4.2 mmol/L (3.5-5.1)
[2021-01-19 15:54] LABS: Basophils # (auto) 0 10 ^3/uL (0-0.2); Basophils % (auto) 0.4 % (0.0-2.0); Eosinophils # (auto) 0.1 10 ^3/uL (0-0.8); Eosinophils % (auto) 0.7 % (0.0-7.0); Hematocrit 48.1 % (41.0-53.0); Hemoglobin 15.8 g/dL (13.5-17.5); Mean Corpuscular Hemoglobin 28.5 pg (28.0-32.0); Mean Corpuscular Hgb Conc. 32.9 g/dL (32.0-36.0); Mean Corpuscular Volume 86.6 fL (80.0-100.0); Monocytes # (auto) 1.1 10 ^3/uL (0-1.3); Monocytes % (auto) 11.2 % (0.0-12.0); Neutrophils # (auto) 7.5 10 ^3/uL (1.6-8.6); Neutrophils % (auto) 77.7 % (37.0-80.0); Nucleated Red Blood Cells % 0.3 %; Platelet Count (auto) 190 10^3/uL (140-450); Red Blood Cells 5.55 10^6/uL (4.5-5.90); Red Cell Distribution Width 16.3 % (11.8-14.3); White Blood Cell 9.7 10^3/uL (4.4-10.8)
== END | disposition home or self-care (01) ==
LOC: CHF HDHVI 12:12
PROVIDERS: ATTEND Internal Medicine Cardiovascular Disease
DX: I11.0 Hypertensive heart disease with heart failure (principal); I50.23 Acute on chronic systolic (congestive) heart failure; E87.6 Hypokalemia; I25.10 Atherosclerotic heart disease of native coronary artery without angina pectoris; E11.9 Type 2 diabetes mellitus without complications; J44.9 Chronic obstructive pulmonary disease, unspecified; I25.2 Old myocardial infarction; Z79.899 Other long term (current) drug therapy; Z95.810 Presence of automatic (implantable) cardiac defibrillator
CPT/HCPCS: 36415; 80048; 83735; 83880; 85025; 96365; 96366; 96375; G0463; J1940; J2260

== ENCOUNTER → 2021-01-25 | Outpatient (CLI) | payer MEDICARE ==
[2021-01-25] VITALS (11 sets, daily range): BP systolic 105–144; BP diastolic 49–77
[~2021-01-25] MED LIST changes: +CYANOCOBALAMIN (B-12) 1000 MCG/1 ML VIAL IM ONE; +CYANOCOBALAMIN (B-12) 1000 MCG/1 ML VIAL ONE; -FUROSEMIDE 100 MG/10ML VIAL IV ONE; -FUROSEMIDE 20 MG/2 ML VIAL ONE; -FUROSEMIDE INJECTION 10 ML ONE; -POTASSIUM CHL 20 Meq TABLET PO ONE; +TESTOSTERONE CYPIONATE 200 MG/ML 1ML VIAL IM ONE; -metOLazone 5 MG TAB ONE; -metOLazone 5 MG TAB PO ONE
[2021-01-25 12:43] LABS: Potassium 4.3 mmol/L (3.5-5.1)
== END | disposition home or self-care (01) ==
LOC: CHF HDHVI 07:57
PROVIDERS: ATTEND Internal Medicine Cardiovascular Disease
DX: I11.0 Hypertensive heart disease with heart failure (principal); I50.23 Acute on chronic systolic (congestive) heart failure; E29.1 Testicular hypofunction; I25.10 Atherosclerotic heart disease of native coronary artery without angina pectoris; J44.9 Chronic obstructive pulmonary disease, unspecified; E11.9 Type 2 diabetes mellitus without complications; I25.2 Old myocardial infarction; Z79.899 Other long term (current) drug therapy; Z95.810 Presence of automatic (implantable) cardiac defibrillator
CPT/HCPCS: 36415; 82565; 83880; 84132; 84520; 96365; 96366; 96372; G0463; J1071; J2260; J3420

== ENCOUNTER → 2021-02-03 | Outpatient (CLI) | payer MEDICARE ==
[2021-02-03] VITALS (11 sets, daily range): BP systolic 99–143; BP diastolic 44–72
[~2021-02-03] MED LIST changes: -CYANOCOBALAMIN (B-12) 1000 MCG/1 ML VIAL IM ONE; -CYANOCOBALAMIN (B-12) 1000 MCG/1 ML VIAL ONE; -TESTOSTERONE CYPIONATE 200 MG/ML 1ML VIAL IM ONE
[2021-02-03 11:58] LABS: Potassium 4.6 mmol/L (3.5-5.1)
== END | disposition home or self-care (01) ==
LOC: CHF HDHVI 07:48
PROVIDERS: ATTEND Internal Medicine Cardiovascular Disease
DX: I11.0 Hypertensive heart disease with heart failure (principal); I50.23 Acute on chronic systolic (congestive) heart failure; I25.10 Atherosclerotic heart disease of native coronary artery without angina pectoris; I25.2 Old myocardial infarction; J44.9 Chronic obstructive pulmonary disease, unspecified; E11.9 Type 2 diabetes mellitus without complications; Z79.899 Other long term (current) drug therapy; Z95.810 Presence of automatic (implantable) cardiac defibrillator
CPT/HCPCS: 36415; 82565; 83880; 84132; 84520; 96365; 96366; G0463; J2260

== ENCOUNTER → 2021-03-10 | Outpatient (CLI) | payer MEDICARE ==
[2021-03-10] VITALS (11 sets, daily range): BP systolic 95–142; BP diastolic 40–70
[2021-03-10 11:39] LABS: Basophils # (auto) 0 10 ^3/uL (0-0.2); Basophils % (auto) 0.5 % (0.0-2.0); Eosinophils # (auto) 0.2 10 ^3/uL (0-0.8); Eosinophils % (auto) 1.9 % (0.0-7.0); Hematocrit 44.8 % (41.0-53.0); Hemoglobin 15.3 g/dL (13.5-17.5); Lymphocytes # (auto) 1.3 10 ^3/uL (0.4-5.4); Lymphocytes % (auto) 14.5 % (10.0-50.0); Mean Corpuscular Hemoglobin 28.3 pg (28.0-32.0); Mean Corpuscular Hgb Conc. 34.1 g/dL (32.0-36.0); Monocytes # (auto) 1.1 10 ^3/uL (0-1.3); Monocytes % (auto) 12.4 % (0.0-12.0); Neutrophils # (auto) 6.4 10 ^3/uL (1.6-8.6); Neutrophils % (auto) 70.7 % (37.0-80.0); Nucleated Red Blood Cells % 0.1 %; Platelet Count (auto) 148 10^3/uL (140-450); Red Cell Distribution Width 15.4 % (11.8-14.3); White Blood Cell 9.1 10^3/uL (4.4-10.8)
[2021-03-10 11:48] LABS: Magnesium 2.2 mg/dL (1.6-2.6)
== END | disposition home or self-care (01) ==
LOC: CHF HDHVI 07:57
PROVIDERS: ATTEND Internal Medicine Cardiovascular Disease
DX: I11.0 Hypertensive heart disease with heart failure (principal); I50.23 Acute on chronic systolic (congestive) heart failure; I25.10 Atherosclerotic heart disease of native coronary artery without angina pectoris; I25.2 Old myocardial infarction; J44.9 Chronic obstructive pulmonary disease, unspecified; E11.9 Type 2 diabetes mellitus without complications; R53.83 Other fatigue; Z79.899 Other long term (current) drug therapy; Z95.810 Presence of automatic (implantable) cardiac defibrillator
CPT/HCPCS: 36415; 82565; 83735; 83880; 84132; 84520; 85025; 96365; 96366; G0463; J2260

== ENCOUNTER → 2021-03-31 | Outpatient (CLI) | payer MEDICARE ==
[2021-03-31] VITALS (10 sets, daily range): BP systolic 91–135; BP diastolic 46–73
[2021-03-31 12:15] LABS: BUN/Creatinine Ratio 18.8; Calcium 8.9 mg/dL (8.5-10.1); Potassium 3.3 mmol/L (3.5-5.1)
== END | disposition home or self-care (01) ==
LOC: CHF HDHVI 07:47
PROVIDERS: ATTEND Internal Medicine Cardiovascular Disease
DX: I11.0 Hypertensive heart disease with heart failure (principal); I50.23 Acute on chronic systolic (congestive) heart failure; I25.10 Atherosclerotic heart disease of native coronary artery without angina pectoris; E11.9 Type 2 diabetes mellitus without complications; J44.9 Chronic obstructive pulmonary disease, unspecified; I25.2 Old myocardial infarction; Z79.899 Other long term (current) drug therapy; Z95.810 Presence of automatic (implantable) cardiac defibrillator
CPT/HCPCS: 36415; 80048; 83036; 83735; 83880; 96365; 96366; G0463; J2260

== ENCOUNTER → 2021-04-14 | Outpatient (CLI) | payer MEDICARE ==
[2021-04-14] VITALS (11 sets, daily range): BP systolic 98–130; BP diastolic 55–71
[~2021-04-14] MED LIST changes: +TESTOSTERONE CYPIONATE 200 MG/ML 1ML VIAL IM ONE
[2021-04-14 12:04] LABS: Basophils # (auto) 0 10 ^3/uL (0-0.2); Basophils % (auto) 0.6 % (0.0-2.0); Calcium 8.4 mg/dL (8.5-10.1); Eosinophils # (auto) 0.1 10 ^3/uL (0-0.8); Eosinophils % (auto) 1.4 % (0.0-7.0); Hematocrit 46.8 % (41.0-53.0); Lymphocytes # (auto) 1.2 10 ^3/uL (0.4-5.4); Lymphocytes % (auto) 15.3 % (10.0-50.0); Mean Corpuscular Hemoglobin 29.1 pg (28.0-32.0); Mean Corpuscular Hgb Conc. 34.1 g/dL (32.0-36.0); Mean Corpuscular Volume 85.2 fL (80.0-100.0); Monocytes # (auto) 1.1 10 ^3/uL (0-1.3); Monocytes % (auto) 13.9 % (0.0-12.0); Neutrophils # (auto) 5.2 10 ^3/uL (1.6-8.6); Neutrophils % (auto) 68.8 % (37.0-80.0); Potassium 4.5 mmol/L (3.5-5.1); Red Blood Cells 5.49 10^6/uL (4.5-5.90); White Blood Cell 7.6 10^3/uL (4.4-10.8)
[2021-04-14 12:06] LABS: BUN/Creatinine Ratio 19.7
== END | disposition home or self-care (01) ==
LOC: CHF HDHVI 08:10
PROVIDERS: ATTEND Internal Medicine Cardiovascular Disease
DX: I11.0 Hypertensive heart disease with heart failure (principal); I50.23 Acute on chronic systolic (congestive) heart failure; E29.1 Testicular hypofunction; I25.10 Atherosclerotic heart disease of native coronary artery without angina pectoris; I25.2 Old myocardial infarction; J44.9 Chronic obstructive pulmonary disease, unspecified; E11.9 Type 2 diabetes mellitus without complications; R53.83 Other fatigue; Z79.899 Other long term (current) drug therapy; Z95.810 Presence of automatic (implantable) cardiac defibrillator
CPT/HCPCS: 36415; 80048; 83880; 85025; 85049; 96365; 96366; 96372; G0463; J1071; J2260

== ENCOUNTER → 2021-04-21 | Outpatient (CLI) | payer MEDICARE ==
[2021-04-21] VITALS (11 sets, daily range): BP systolic 91–131; BP diastolic 43–64
[~2021-04-21] MED LIST changes: +MULTIPLE VIT 10 ML IV ONE; -TESTOSTERONE CYPIONATE 200 MG/ML 1ML VIAL IM ONE
[2021-04-21 11:51] LABS: Potassium 3.9 mmol/L (3.5-5.1)
== END | disposition home or self-care (01) ==
LOC: CHF HDHVI 07:50
PROVIDERS: ATTEND Internal Medicine Cardiovascular Disease
DX: I11.0 Hypertensive heart disease with heart failure (principal); I50.23 Acute on chronic systolic (congestive) heart failure; I25.10 Atherosclerotic heart disease of native coronary artery without angina pectoris; I25.2 Old myocardial infarction; J44.9 Chronic obstructive pulmonary disease, unspecified; E11.9 Type 2 diabetes mellitus without complications; R53.83 Other fatigue; Z79.899 Other long term (current) drug therapy; Z95.810 Presence of automatic (implantable) cardiac defibrillator
CPT/HCPCS: 36415; 82565; 83880; 84132; 84520; 96365; 96366; G0463; J2260

== ENCOUNTER → 2021-04-28 | Outpatient (CLI) | payer MEDICARE ==
[2021-04-28] VITALS (11 sets, daily range): BP systolic 98–127; BP diastolic 43–66
[~2021-04-28] MED LIST changes: -MULTIPLE VIT 10 ML IV ONE
[2021-04-28 12:02] LABS: BUN/Creatinine Ratio 24.4; Calcium 9.1 mg/dL (8.5-10.1); Magnesium 2.5 mg/dL (1.6-2.6)
== END | disposition home or self-care (01) ==
LOC: Rad HDHVI 07:43
PROVIDERS: ATTEND Internal Medicine Cardiovascular Disease
DX: I11.0 Hypertensive heart disease with heart failure (principal); I50.23 Acute on chronic systolic (congestive) heart failure; I25.10 Atherosclerotic heart disease of native coronary artery without angina pectoris; I25.2 Old myocardial infarction; J44.9 Chronic obstructive pulmonary disease, unspecified; E11.9 Type 2 diabetes mellitus without complications; R53.83 Other fatigue; Z79.899 Other long term (current) drug therapy; Z95.810 Presence of automatic (implantable) cardiac defibrillator
CPT/HCPCS: 36415; 80048; 83735; 83880; 93306; 96365; 96366; G0463; J2260

== ENCOUNTER → 2021-05-05 | Outpatient (CLI) | payer MEDICARE ==
[2021-05-05] VITALS (11 sets, daily range): BP systolic 96–129; BP diastolic 47–67
[~2021-05-05] MED LIST changes: +CYANOCOBALAMIN (B-12) 1000 MCG/1 ML VIAL IM ONE; +CYANOCOBALAMIN (B-12) 1000 MCG/1 ML VIAL ONE; +TESTOSTERONE CYPIONATE 200 MG/ML 1ML VIAL IM ONE
[2021-05-05 11:58] LABS: Potassium 4.5 mmol/L (3.5-5.1)
== END | disposition home or self-care (01) ==
LOC: CHF HDHVI 07:44
PROVIDERS: ATTEND Internal Medicine Cardiovascular Disease
DX: I11.0 Hypertensive heart disease with heart failure (principal); I50.23 Acute on chronic systolic (congestive) heart failure; E29.1 Testicular hypofunction; R53.83 Other fatigue; E11.9 Type 2 diabetes mellitus without complications; I25.10 Atherosclerotic heart disease of native coronary artery without angina pectoris; I25.2 Old myocardial infarction; J44.9 Chronic obstructive pulmonary disease, unspecified; Z79.899 Other long term (current) drug therapy; Z95.810 Presence of automatic (implantable) cardiac defibrillator
CPT/HCPCS: 36415; 82565; 83880; 84132; 84520; 96365; 96366; 96372; G0463; J1071; J2260; J3420

== ENCOUNTER → 2021-05-17 | Outpatient (CLI) | payer MEDICARE ==
[2021-05-17] VITALS (11 sets, daily range): BP systolic 89–104; BP diastolic 40–62
[~2021-05-17] MED LIST changes: -CYANOCOBALAMIN (B-12) 1000 MCG/1 ML VIAL IM ONE; -CYANOCOBALAMIN (B-12) 1000 MCG/1 ML VIAL ONE; -TESTOSTERONE CYPIONATE 200 MG/ML 1ML VIAL IM ONE
[2021-05-17 11:40] LABS: Basophils # (auto) 0 10 ^3/uL (0-0.2); Basophils % (auto) 0.3 % (0.0-2.0); Eosinophils # (auto) 0.2 10 ^3/uL (0-0.8); Eosinophils % (auto) 1.9 % (0.0-7.0); Hematocrit 51.1 % (41.0-53.0); Hemoglobin 17.2 g/dL (13.5-17.5); Lymphocytes # (auto) 1.4 10 ^3/uL (0.4-5.4); Mean Corpuscular Hemoglobin 29.3 pg (28.0-32.0); Mean Corpuscular Hgb Conc. 33.6 g/dL (32.0-36.0); Mean Corpuscular Volume 87.2 fL (80.0-100.0); Monocytes # (auto) 1.4 10 ^3/uL (0-1.3); Monocytes % (auto) 12.9 % (0.0-12.0); Neutrophils # (auto) 7.6 10 ^3/uL (1.6-8.6); Neutrophils % (auto) 71.9 % (37.0-80.0); Nucleated Red Blood Cells % 0.1 %; Red Blood Cells 5.86 10^6/uL (4.5-5.90); Red Cell Distribution Width 16.1 % (11.8-14.3); White Blood Cell 10.6 10^3/uL (4.4-10.8)
[2021-05-17 11:45] LABS: Potassium 3.9 mmol/L (3.5-5.1)
[2021-05-17 11:50] LABS: Calcium 8.8 mg/dL (8.5-10.1); Magnesium 2.4 mg/dL (1.6-2.6)
== END | disposition home or self-care (01) ==
LOC: CHF HDHVI 07:46
PROVIDERS: ATTEND Internal Medicine Cardiovascular Disease
DX: I11.0 Hypertensive heart disease with heart failure (principal); I50.23 Acute on chronic systolic (congestive) heart failure; I25.10 Atherosclerotic heart disease of native coronary artery without angina pectoris; I25.2 Old myocardial infarction; E11.9 Type 2 diabetes mellitus without complications; R53.83 Other fatigue; Z79.899 Other long term (current) drug therapy; Z95.810 Presence of automatic (implantable) cardiac defibrillator
CPT/HCPCS: 36415; 80048; 82306; 83036; 83735; 83880; 85025; 96365; 96366; G0463; J2260

== ENCOUNTER → 2021-05-24 | Outpatient (CLI) | payer MEDICARE ==
[2021-05-24] VITALS (10 sets, daily range): BP systolic 91–133; BP diastolic 50–79
[2021-05-24 12:12] LABS: Potassium 3.9 mmol/L (3.5-5.1)
== END | disposition home or self-care (01) ==
LOC: CHF HDHVI 07:46
PROVIDERS: ATTEND Internal Medicine Cardiovascular Disease
DX: I11.0 Hypertensive heart disease with heart failure (principal); I50.23 Acute on chronic systolic (congestive) heart failure; I25.10 Atherosclerotic heart disease of native coronary artery without angina pectoris; I25.2 Old myocardial infarction; R53.83 Other fatigue; J44.9 Chronic obstructive pulmonary disease, unspecified; E11.9 Type 2 diabetes mellitus without complications; Z79.899 Other long term (current) drug therapy; Z95.810 Presence of automatic (implantable) cardiac defibrillator
CPT/HCPCS: 36415; 82565; 83880; 84132; 84520; 96365; 96366; G0463; J2260

== ENCOUNTER → 2021-06-30 | Outpatient (CLI) | payer MEDICARE ==
[2021-06-30] VITALS (11 sets, daily range): BP systolic 94–136; BP diastolic 42–61
[~2021-06-30] MED LIST changes: +FUROSEMIDE 40 MG/4 ML VIAL IV ONE; +FUROSEMIDE 40 MG/4 ML VIAL ONE; +POTASSIUM CHL 10 Meq TABLET PO ONE; +POTASSIUM CHL 20 Meq TABLET PO ONE; +TESTOSTERONE CYPIONATE 200 MG/ML 1ML VIAL IM ONE; +metOLazone 5 MG TAB ONE; +metOLazone 5 MG TAB PO ONE
[2021-06-30 09:40] LABS: Calcium 8.7 mg/dL (8.5-10.1); Magnesium 2.3 mg/dL (1.6-2.6); Potassium 3.8 mmol/L (3.5-5.1)
== END | disposition home or self-care (01) ==
LOC: CHF HDHVI 08:00
PROVIDERS: ATTEND Internal Medicine Cardiovascular Disease
DX: I11.0 Hypertensive heart disease with heart failure (principal); I50.23 Acute on chronic systolic (congestive) heart failure; E29.1 Testicular hypofunction; I25.5 Ischemic cardiomyopathy; I25.10 Atherosclerotic heart disease of native coronary artery without angina pectoris; I25.2 Old myocardial infarction; J44.9 Chronic obstructive pulmonary disease, unspecified; E11.9 Type 2 diabetes mellitus without complications; R53.83 Other fatigue; Z79.899 Other long term (current) drug therapy; Z95.810 Presence of automatic (implantable) cardiac defibrillator
CPT/HCPCS: 36415; 80048; 83735; 83880; 96365; 96366; 96372; 96375; G0463; J1071; J1940; J2260

== ENCOUNTER → 2021-07-07 | Outpatient (CLI) | payer MEDICARE ==
[2021-07-07] VITALS (12 sets, daily range): BP systolic 99–140; BP diastolic 48–67
[~2021-07-07] MED LIST changes: -FUROSEMIDE 40 MG/4 ML VIAL IV ONE; -FUROSEMIDE 40 MG/4 ML VIAL ONE; -POTASSIUM CHL 10 Meq TABLET PO ONE; -POTASSIUM CHL 20 Meq TABLET PO ONE; -TESTOSTERONE CYPIONATE 200 MG/ML 1ML VIAL IM ONE; -metOLazone 5 MG TAB ONE; -metOLazone 5 MG TAB PO ONE
[2021-07-07 11:36] LABS: Potassium 3.5 mmol/L (3.5-5.1)
== END | disposition home or self-care (01) ==
LOC: CHF HDHVI 07:44
PROVIDERS: ATTEND Internal Medicine Cardiovascular Disease
DX: I11.0 Hypertensive heart disease with heart failure (principal); I50.23 Acute on chronic systolic (congestive) heart failure; I25.10 Atherosclerotic heart disease of native coronary artery without angina pectoris; I25.5 Ischemic cardiomyopathy; I25.2 Old myocardial infarction; J44.9 Chronic obstructive pulmonary disease, unspecified; E11.9 Type 2 diabetes mellitus without complications; R53.83 Other fatigue; Z79.899 Other long term (current) drug therapy; Z95.810 Presence of automatic (implantable) cardiac defibrillator
CPT/HCPCS: 36415; 82565; 83880; 84132; 84520; 96365; 96366; G0463; J2260

== ENCOUNTER → 2021-09-08 | Outpatient (CLI) | payer MEDICARE ==
[2021-09-08] VITALS (11 sets, daily range): BP systolic 89–114; BP diastolic 49–69
[2021-09-08 11:26] LABS: Basophils # (auto) 0 10 ^3/uL (0-0.2); Basophils % (auto) 0.5 % (0.0-2.0); Eosinophils # (auto) 0.1 10 ^3/uL (0-0.8); Eosinophils % (auto) 1.5 % (0.0-7.0); Hematocrit 49.3 % (41.0-53.0); Hemoglobin 16.2 g/dL (13.5-17.5); Lymphocytes % (auto) 10.1 % (10.0-50.0); Mean Corpuscular Hemoglobin 28.2 pg (28.0-32.0); Mean Corpuscular Hgb Conc. 32.9 g/dL (32.0-36.0); Mean Corpuscular Volume 85.9 fL (80.0-100.0); Monocytes # (auto) 1.4 10 ^3/uL (0-1.3); Monocytes % (auto) 14.6 % (0.0-12.0); Neutrophils % (auto) 73.3 % (37.0-80.0); Nucleated Red Blood Cells % 0.1 %; Red Blood Cells 5.74 10^6/uL (4.5-5.90); Red Cell Distribution Width 16.1 % (11.8-14.3); White Blood Cell 9.6 10^3/uL (4.4-10.8)
[2021-09-08 12:07] LABS: BUN/Creatinine Ratio 18.8; Calcium 8.6 mg/dL (8.5-10.1); Magnesium 2.6 mg/dL (1.6-2.6); Potassium 3.7 mmol/L (3.5-5.1)
== END | disposition home or self-care (01) ==
LOC: CHF HDHVI 07:58
PROVIDERS: ATTEND Internal Medicine Cardiovascular Disease
DX: I11.0 Hypertensive heart disease with heart failure (principal); I50.23 Acute on chronic systolic (congestive) heart failure; I25.10 Atherosclerotic heart disease of native coronary artery without angina pectoris; I25.2 Old myocardial infarction; J44.9 Chronic obstructive pulmonary disease, unspecified; E11.9 Type 2 diabetes mellitus without complications; Z79.899 Other long term (current) drug therapy; Z95.810 Presence of automatic (implantable) cardiac defibrillator
CPT/HCPCS: 36415; 80048; 83036; 83735; 83880; 85025; 96365; 96366; G0463; J2260

== ENCOUNTER → 2021-09-22 | Outpatient (CLI) | payer MEDICARE ==
[2021-09-22] VITALS (11 sets, daily range): BP systolic 103–139; BP diastolic 51–76
[~2021-09-22] MED LIST changes: +CYANOCOBALAMIN (B-12) 1000 MCG/1 ML VIAL IM ONE; +CYANOCOBALAMIN (B-12) 1000 MCG/1 ML VIAL ONE; +FUROSEMIDE 100 MG/10ML VIAL IV ONE; +FUROSEMIDE 40 MG/4 ML VIAL ONE; +POTASSIUM CHL 10 Meq TABLET PO ONE; +POTASSIUM CHL 20 Meq TABLET PO ONE; +metOLazone 5 MG TAB ONE; +metOLazone 5 MG TAB PO ONE
[2021-09-22 09:12] LABS: Basophils # (auto) 0 10 ^3/uL (0-0.2); Basophils % (auto) 0.5 % (0.0-2.0); Eosinophils # (auto) 0.1 10 ^3/uL (0-0.8); Eosinophils % (auto) 1.5 % (0.0-7.0); Hematocrit 47.5 % (41.0-53.0); Hemoglobin 15.5 g/dL (13.5-17.5); Lymphocytes # (auto) 1.3 10 ^3/uL (0.4-5.4); Lymphocytes % (auto) 16.1 % (10.0-50.0); Mean Corpuscular Hemoglobin 28.4 pg (28.0-32.0); Mean Corpuscular Hgb Conc. 32.7 g/dL (32.0-36.0); Mean Corpuscular Volume 86.7 fL (80.0-100.0); Monocytes % (auto) 12.5 % (0.0-12.0); Neutrophils # (auto) 5.5 10 ^3/uL (1.6-8.6); Neutrophils % (auto) 69.4 % (37.0-80.0); Nucleated Red Blood Cells % 0.1 %; Red Blood Cells 5.47 10^6/uL (4.5-5.90); Red Cell Distribution Width 16.7 % (11.8-14.3); White Blood Cell 7.9 10^3/uL (4.4-10.8)
[2021-09-22 09:24] LABS: Albumin 3.5 g/dL (3.4-5.0); Calcium 8.2 mg/dL (8.5-10.1); Magnesium 3.1 mg/dL (1.6-2.6); Potassium 4.4 mmol/L (3.5-5.1)
[2021-09-22 09:29] LABS: BUN/Creatinine Ratio 22.1; Total Protein 6.9 g/dL (6.4-8.2)
== END | disposition home or self-care (01) ==
LOC: CHF HDHVI 07:57
PROVIDERS: ATTEND Internal Medicine Cardiovascular Disease
DX: I11.0 Hypertensive heart disease with heart failure (principal); I50.23 Acute on chronic systolic (congestive) heart failure; D64.9 Anemia, unspecified; I25.10 Atherosclerotic heart disease of native coronary artery without angina pectoris; J44.9 Chronic obstructive pulmonary disease, unspecified; I25.2 Old myocardial infarction; E11.9 Type 2 diabetes mellitus without complications; Z79.899 Other long term (current) drug therapy
CPT/HCPCS: 36415; 80053; 83735; 83880; 85025; 96365; 96366; 96372; 96375; G0463; J1940; J2260; J3420

== ENCOUNTER → 2021-10-06 | Outpatient (CLI) | payer MEDICARE ==
[2021-10-06] VITALS (9 sets, daily range): BP systolic 89–140; BP diastolic 44–77
[~2021-10-06] MED LIST changes: -CYANOCOBALAMIN (B-12) 1000 MCG/1 ML VIAL IM ONE; -CYANOCOBALAMIN (B-12) 1000 MCG/1 ML VIAL ONE; -FUROSEMIDE 100 MG/10ML VIAL IV ONE; -FUROSEMIDE 40 MG/4 ML VIAL ONE; -POTASSIUM CHL 10 Meq TABLET PO ONE; -POTASSIUM CHL 20 Meq TABLET PO ONE; -metOLazone 5 MG TAB ONE; -metOLazone 5 MG TAB PO ONE
[2021-10-06 11:20] LABS: Basophils # (auto) 0.1 10 ^3/uL (0-0.2); Basophils % (auto) 0.4 % (0.0-2.0); Eosinophils # (auto) 0 10 ^3/uL (0-0.8); Eosinophils % (auto) 0.1 % (0.0-7.0); Hematocrit 50.2 % (41.0-53.0); Hemoglobin 16.6 g/dL (13.5-17.5); Lymphocytes # (auto) 0.5 10 ^3/uL (0.4-5.4); Lymphocytes % (auto) 3.5 % (10.0-50.0); Mean Corpuscular Hemoglobin 28.8 pg (28.0-32.0); Mean Corpuscular Hgb Conc. 33.2 g/dL (32.0-36.0); Mean Corpuscular Volume 86.9 fL (80.0-100.0); Monocytes # (auto) 0.8 10 ^3/uL (0-1.3); Monocytes % (auto) 5.6 % (0.0-12.0); Neutrophils # (auto) 13.2 10 ^3/uL (1.6-8.6); Neutrophils % (auto) 90.4 % (37.0-80.0); Red Blood Cells 5.77 10^6/uL (4.5-5.90); Red Cell Distribution Width 16.2 % (11.8-14.3); White Blood Cell 14.6 10^3/uL (4.4-10.8)
[2021-10-06 11:48] LABS: Potassium 4.4 mmol/L (3.5-5.1)
[2021-10-06 11:51] LABS: BUN/Creatinine Ratio 21.2; Magnesium 3.1 mg/dL (1.6-2.6)
== END | disposition home or self-care (01) ==
LOC: CHF HDHVI 07:50
PROVIDERS: ATTEND Internal Medicine Cardiovascular Disease
DX: I11.0 Hypertensive heart disease with heart failure (principal); I50.23 Acute on chronic systolic (congestive) heart failure; I25.10 Atherosclerotic heart disease of native coronary artery without angina pectoris; I25.2 Old myocardial infarction; R94.31 Abnormal electrocardiogram [ECG] [EKG]; J44.9 Chronic obstructive pulmonary disease, unspecified; E11.9 Type 2 diabetes mellitus without complications; Z79.899 Other long term (current) drug therapy; Z86.73 Personal history of transient ischemic attack (TIA), and cerebral infarction without residual deficits
CPT/HCPCS: 36415; 80048; 83735; 83880; 85025; 96365; 96366; G0463; J2260

== ENCOUNTER → 2021-10-19 | Outpatient (CLI) | payer MEDICARE ==
[2021-10-19] VITALS (11 sets, daily range): BP systolic 94–102; BP diastolic 44–54
[~2021-10-19] MED LIST changes: +CYANOCOBALAMIN (B-12) 1000 MCG/1 ML VIAL IM ONE; +CYANOCOBALAMIN (B-12) 1000 MCG/1 ML VIAL ONE
[2021-10-19 09:22] LABS: Hematocrit 46.6 % (41.0-53.0); Hemoglobin 15.7 g/dL (13.5-17.5); Mean Corpuscular Hgb Conc. 33.6 g/dL (32.0-36.0); Mean Corpuscular Volume 86.4 fL (80.0-100.0); Red Blood Cells 5.39 10^6/uL (4.5-5.90); Red Cell Distribution Width 16.1 % (11.8-14.3); White Blood Cell 8.7 10^3/uL (4.4-10.8)
[2021-10-19 09:25] LABS: Basophils % (manual) 0 (0.0-2.0); Metamyelocytes % 0; Myelocytes % 0; Promyelocytes % 0
[2021-10-19 09:26] LABS: Blast Cells 0; Reactive Lymphocytes 0
[2021-10-19 09:35] LABS: Albumin 3.1 g/dL (3.4-5.0); Calcium 8.8 mg/dL (8.5-10.1); Potassium 4.2 mmol/L (3.5-5.1)
[2021-10-19 09:48] LABS: BUN/Creatinine Ratio 18.4; Bilirubin, Total 0.6 mg/dL (0.2-1.0); Magnesium 2.7 mg/dL (1.6-2.6); Total Protein 7.1 g/dL (6.4-8.2)
[2021-10-19 11:26] LABS: Band Neutrophils % (manual) 4; Eosinophils % (manual) 3 (0-7); Lymphocytes % (manual) 13 (10.0-50.0); Monocytes % (manual) 12 (0-12)
== END | disposition home or self-care (01) ==
LOC: CHF HDHVI 07:55
PROVIDERS: ATTEND Internal Medicine Cardiovascular Disease
DX: I11.0 Hypertensive heart disease with heart failure (principal); I50.23 Acute on chronic systolic (congestive) heart failure; I25.10 Atherosclerotic heart disease of native coronary artery without angina pectoris; I25.2 Old myocardial infarction; J44.9 Chronic obstructive pulmonary disease, unspecified; E11.9 Type 2 diabetes mellitus without complications; Z79.899 Other long term (current) drug therapy; Z95.810 Presence of automatic (implantable) cardiac defibrillator
CPT/HCPCS: 36415; 71046; 80053; 83735; 83880; 85007; 85027; 96365; 96366; 96372; G0463; J2260; J3420

== ENCOUNTER → 2021-11-03 | Outpatient (CLI) | payer MEDICARE ==
[2021-11-03] VITALS (11 sets, daily range): BP systolic 97–175; BP diastolic 48–91
[~2021-11-03] MED LIST changes: +BUMETANIDE 2.5mg/10ml (0.25 mg/ml) INJ IV ONE; +BUMETANIDE INJECTION 20 ML ONE; -CYANOCOBALAMIN (B-12) 1000 MCG/1 ML VIAL IM ONE; -CYANOCOBALAMIN (B-12) 1000 MCG/1 ML VIAL ONE; +InsuLIN REG 1unit/0.01ml Soln (100units/ml) IV ONE; +InsuLIN REG 1unit/0.01ml Soln (100units/ml) ONE; +POTASSIUM CHL 20 Meq TABLET PO ONE
[2021-11-03 11:57] LABS: Basophils # (auto) 0 10 ^3/uL (0-0.2); Basophils % (auto) 0.3 % (0.0-2.0); Eosinophils # (auto) 0.1 10 ^3/uL (0-0.8); Eosinophils % (auto) 1.1 % (0.0-7.0); Hematocrit 47.2 % (41.0-53.0); Hemoglobin 15.6 g/dL (13.5-17.5); Lymphocytes # (auto) 1.1 10 ^3/uL (0.4-5.4); Lymphocytes % (auto) 10.8 % (10.0-50.0); Mean Corpuscular Hemoglobin 28.5 pg (28.0-32.0); Mean Corpuscular Hgb Conc. 33.2 g/dL (32.0-36.0); Mean Corpuscular Volume 85.9 fL (80.0-100.0); Monocytes % (auto) 10.2 % (0.0-12.0); Neutrophils # (auto) 7.7 10 ^3/uL (1.6-8.6); Neutrophils % (auto) 77.6 % (37.0-80.0); Nucleated Red Blood Cells % 0.1 %; Red Blood Cells 5.49 10^6/uL (4.5-5.90); Red Cell Distribution Width 15.7 % (11.8-14.3); White Blood Cell 9.9 10^3/uL (4.4-10.8)
[2021-11-03 12:11] LABS: Potassium 3.7 mmol/L (3.5-5.1)
[2021-11-03 12:15] LABS: BUN/Creatinine Ratio 16.5; Calcium 8.4 mg/dL (8.5-10.1)
== END | disposition home or self-care (01) ==
LOC: CHF HDHVI 10:52
PROVIDERS: ATTEND Internal Medicine Cardiovascular Disease
DX: I11.0 Hypertensive heart disease with heart failure (principal); I50.23 Acute on chronic systolic (congestive) heart failure; R94.31 Abnormal electrocardiogram [ECG] [EKG]; I25.10 Atherosclerotic heart disease of native coronary artery without angina pectoris; I25.2 Old myocardial infarction; J44.9 Chronic obstructive pulmonary disease, unspecified; E11.9 Type 2 diabetes mellitus without complications; Z79.899 Other long term (current) drug therapy; Z95.810 Presence of automatic (implantable) cardiac defibrillator
CPT/HCPCS: 36415; 74018; 80048; 83735; 83880; 85025; 93005; 96365; 96366; 96372; 96375; G0463; J1815; J2260

== ENCOUNTER → 2021-11-10 | Outpatient (CLI) | payer MEDICARE ==
[2021-11-10] VITALS (11 sets, daily range): BP systolic 107–130; BP diastolic 51–71
[~2021-11-10] MED LIST changes: -BUMETANIDE 2.5mg/10ml (0.25 mg/ml) INJ IV ONE; -BUMETANIDE INJECTION 20 ML ONE; -InsuLIN REG 1unit/0.01ml Soln (100units/ml) IV ONE; -InsuLIN REG 1unit/0.01ml Soln (100units/ml) ONE; -POTASSIUM CHL 20 Meq TABLET PO ONE
[2021-11-10 11:45] LABS: Basophils # (auto) 0 10 ^3/uL (0-0.2); Basophils % (auto) 0.2 % (0.0-2.0); Eosinophils # (auto) 0.1 10 ^3/uL (0-0.8); Eosinophils % (auto) 1.9 % (0.0-7.0); Hematocrit 44.4 % (41.0-53.0); Hemoglobin 14.8 g/dL (13.5-17.5); Lymphocytes # (auto) 1.2 10 ^3/uL (0.4-5.4); Lymphocytes % (auto) 14.8 % (10.0-50.0); Mean Corpuscular Hemoglobin 28.5 pg (28.0-32.0); Mean Corpuscular Hgb Conc. 33.3 g/dL (32.0-36.0); Mean Corpuscular Volume 85.6 fL (80.0-100.0); Monocytes # (auto) 1.1 10 ^3/uL (0-1.3); Monocytes % (auto) 13.4 % (0.0-12.0); Neutrophils # (auto) 5.5 10 ^3/uL (1.6-8.6); Neutrophils % (auto) 69.7 % (37.0-80.0); Nucleated Red Blood Cells % 0.1 %; Red Blood Cells 5.19 10^6/uL (4.5-5.90); Red Cell Distribution Width 15.6 % (11.8-14.3); White Blood Cell 7.9 10^3/uL (4.4-10.8)
[2021-11-10 11:47] LABS: BUN/Creatinine Ratio 19.3; Calcium 8.5 mg/dL (8.5-10.1); Magnesium 2.9 mg/dL (1.6-2.6); Potassium 3.7 mmol/L (3.5-5.1)
== END | disposition home or self-care (01) ==
LOC: CHF HDHVI 07:49
PROVIDERS: ATTEND Internal Medicine Cardiovascular Disease
DX: I11.0 Hypertensive heart disease with heart failure (principal); I50.23 Acute on chronic systolic (congestive) heart failure; I25.10 Atherosclerotic heart disease of native coronary artery without angina pectoris; I25.2 Old myocardial infarction; E11.9 Type 2 diabetes mellitus without complications; J44.9 Chronic obstructive pulmonary disease, unspecified; Z79.899 Other long term (current) drug therapy; Z95.810 Presence of automatic (implantable) cardiac defibrillator; Z86.73 Personal history of transient ischemic attack (TIA), and cerebral infarction without residual deficits
CPT/HCPCS: 36415; 80048; 83735; 83880; 85025; 96365; 96366; G0463; J2260

== ENCOUNTER → 2021-11-18 | Outpatient (CLI) | payer MEDICARE ==
[~2021-11-18] VITALS: Ht 165.1 cm; Wt 112.1 kg
[2021-11-18] VITALS (11 sets, daily range): BP systolic 91–147; BP diastolic 47–73
[~2021-11-18] MED LIST changes: +CYANOCOBALAMIN (B-12) 1000 MCG/1 ML VIAL IM ONE; +CYANOCOBALAMIN (B-12) 1000 MCG/1 ML VIAL ONE
[2021-11-18 11:30] LABS: Basophils # (auto) 0 10 ^3/uL (0-0.2); Basophils % (auto) 0.6 % (0.0-2.0); Eosinophils # (auto) 0.2 10 ^3/uL (0-0.8); Eosinophils % (auto) 2.5 % (0.0-7.0); Hemoglobin 15.3 g/dL (13.5-17.5); Lymphocytes # (auto) 1.2 10 ^3/uL (0.4-5.4); Lymphocytes % (auto) 17.2 % (10.0-50.0); Mean Corpuscular Hemoglobin 28.8 pg (28.0-32.0); Mean Corpuscular Hgb Conc. 33.2 g/dL (32.0-36.0); Mean Corpuscular Volume 86.9 fL (80.0-100.0); Monocytes # (auto) 0.9 10 ^3/uL (0-1.3); Monocytes % (auto) 12.2 % (0.0-12.0); Neutrophils # (auto) 4.8 10 ^3/uL (1.6-8.6); Neutrophils % (auto) 67.5 % (37.0-80.0); Nucleated Red Blood Cells % 0.1 %; Red Blood Cells 5.29 10^6/uL (4.5-5.90); Red Cell Distribution Width 15.6 % (11.8-14.3)
[2021-11-18 11:47] LABS: Potassium 3.8 mmol/L (3.5-5.1)
== END | disposition home or self-care (01) ==
LOC: CHF HDHVI 07:52
PROVIDERS: ATTEND Internal Medicine Cardiovascular Disease
DX: I11.0 Hypertensive heart disease with heart failure (principal); I50.23 Acute on chronic systolic (congestive) heart failure; I25.10 Atherosclerotic heart disease of native coronary artery without angina pectoris; I25.2 Old myocardial infarction; J44.9 Chronic obstructive pulmonary disease, unspecified; E11.9 Type 2 diabetes mellitus without complications; Z79.899 Other long term (current) drug therapy; Z95.810 Presence of automatic (implantable) cardiac defibrillator; Z86.73 Personal history of transient ischemic attack (TIA), and cerebral infarction without residual deficits
CPT/HCPCS: 36415; 82565; 83880; 84132; 84520; 85025; 96365; 96366; 96372; G0463; J2260; J3420

== ENCOUNTER → 2021-11-24 | Outpatient (CLI) | payer MEDICARE ==
[2021-11-24] VITALS (11 sets, daily range): BP systolic 103–144; BP diastolic 57–77
[~2021-11-24] MED LIST changes: +BUMETANIDE 1mg/4ml VIAL (0.25mg/ml) ONE; +BUMETANIDE 2.5mg/10ml (0.25 mg/ml) INJ IV ONE; -CYANOCOBALAMIN (B-12) 1000 MCG/1 ML VIAL IM ONE; -CYANOCOBALAMIN (B-12) 1000 MCG/1 ML VIAL ONE; +POTASSIUM CHL 10 Meq TABLET PO ONE
[2021-11-24 11:43] LABS: Potassium 4.3 mmol/L (3.5-5.1)
[2021-11-24 11:51] LABS: BUN/Creatinine Ratio 19.5; Calcium 8.8 mg/dL (8.5-10.1)
== END | disposition home or self-care (01) ==
LOC: CHF HDHVI 07:51
PROVIDERS: ATTEND Internal Medicine Cardiovascular Disease
DX: I11.0 Hypertensive heart disease with heart failure (principal); I50.23 Acute on chronic systolic (congestive) heart failure; I25.10 Atherosclerotic heart disease of native coronary artery without angina pectoris; I25.2 Old myocardial infarction; J44.9 Chronic obstructive pulmonary disease, unspecified; E11.9 Type 2 diabetes mellitus without complications; Z79.899 Other long term (current) drug therapy; Z95.810 Presence of automatic (implantable) cardiac defibrillator; Z86.73 Personal history of transient ischemic attack (TIA), and cerebral infarction without residual deficits
CPT/HCPCS: 36415; 80048; 83880; 96365; 96366; 96375; G0463; J2260; J3490

== ENCOUNTER → 2021-12-02 | Outpatient (CLI) | payer MEDICARE ==
[2021-12-02] VITALS (11 sets, daily range): BP systolic 102–146; BP diastolic 52–79
[~2021-12-02] MED LIST changes: -BUMETANIDE 1mg/4ml VIAL (0.25mg/ml) ONE; -BUMETANIDE 2.5mg/10ml (0.25 mg/ml) INJ IV ONE; -POTASSIUM CHL 10 Meq TABLET PO ONE; +methylPREDNISolone SOD SUCC 125 MG/2 ML VL ONE
[2021-12-02 09:23] LABS: Basophils # (auto) 0.2 10 ^3/uL (0-0.2); Basophils % (auto) 2.8 % (0.0-2.0); Eosinophils # (auto) 0.2 10 ^3/uL (0-0.8); Eosinophils % (auto) 2.1 % (0.0-7.0); Hematocrit 45.6 % (41.0-53.0); Hemoglobin 15.3 g/dL (13.5-17.5); Lymphocytes # (auto) 0.9 10 ^3/uL (0.4-5.4); Lymphocytes % (auto) 11.7 % (10.0-50.0); Mean Corpuscular Hemoglobin 28.8 pg (28.0-32.0); Mean Corpuscular Hgb Conc. 33.4 g/dL (32.0-36.0); Mean Corpuscular Volume 86.2 fL (80.0-100.0); Monocytes % (auto) 12.6 % (0.0-12.0); Neutrophils # (auto) 5.4 10 ^3/uL (1.6-8.6); Neutrophils % (auto) 70.8 % (37.0-80.0); Red Blood Cells 5.29 10^6/uL (4.5-5.90); Red Cell Distribution Width 14.8 % (11.8-14.3); White Blood Cell 7.6 10^3/uL (4.4-10.8)
[2021-12-02 11:36] LABS: Sodium 131 mmol/L (136-145)
[2021-12-02 11:37] LABS: Chloride 96 mmol/L (98-107); Potassium 4.4 mmol/L (3.5-5.1)
[2021-12-02 11:38] LABS: Anion Gap 11 (5-15); BUN/Creatinine Ratio 23.5; Blood Urea Nitrogen 28 mg/dL (7-18); Calcium 8.8 mg/dL (8.5-10.1); Carbon Dioxide 24 mmol/L (21-32); GFR African American 78 mL/min; GFR Non-African American 65 mL/min; Magnesium 2.1 mg/dL (1.6-2.6)
[2021-12-02 11:42] LABS: Glucose 534 mg/dL (74-106)
== END | disposition home or self-care (01) ==
LOC: CHF HDHVI 07:52
PROVIDERS: ATTEND Internal Medicine Cardiovascular Disease
DX: I11.0 Hypertensive heart disease with heart failure (principal); I50.23 Acute on chronic systolic (congestive) heart failure; I25.10 Atherosclerotic heart disease of native coronary artery without angina pectoris; I25.2 Old myocardial infarction; E11.9 Type 2 diabetes mellitus without complications; Z79.899 Other long term (current) drug therapy; Z95.810 Presence of automatic (implantable) cardiac defibrillator; Z86.73 Personal history of transient ischemic attack (TIA), and cerebral infarction without residual deficits
CPT/HCPCS: 36415; 80048; 83735; 83880; 84550; 85025; 96365; 96366; G0463; J2260

== ENCOUNTER → 2021-12-08 | Outpatient (CLI) | payer MEDICARE ==
[2021-12-08] VITALS (11 sets, daily range): BP systolic 95–117; BP diastolic 45–58
[~2021-12-08] MED LIST changes: +TESTOSTERONE CYPIONATE 200 MG/ML 1ML VIAL IM ONE; -methylPREDNISolone SOD SUCC 125 MG/2 ML VL ONE
[2021-12-08 11:28] LABS: Basophils # (auto) 0.1 10 ^3/uL (0-0.2); Basophils % (auto) 0.6 % (0.0-2.0); Eosinophils # (auto) 0.2 10 ^3/uL (0-0.8); Eosinophils % (auto) 1.8 % (0.0-7.0); Hematocrit 47.7 % (41.0-53.0); Hemoglobin 16.3 g/dL (13.5-17.5); Lymphocytes # (auto) 1.7 10 ^3/uL (0.4-5.4); Lymphocytes % (auto) 17.4 % (10.0-50.0); Mean Corpuscular Hemoglobin 29.3 pg (28.0-32.0); Mean Corpuscular Hgb Conc. 34.1 g/dL (32.0-36.0); Monocytes # (auto) 1.1 10 ^3/uL (0-1.3); Neutrophils # (auto) 6.5 10 ^3/uL (1.6-8.6); Neutrophils % (auto) 68.2 % (37.0-80.0); Nucleated Red Blood Cells % 0.2 %; Red Blood Cells 5.55 10^6/uL (4.5-5.90); Red Cell Distribution Width 14.5 % (11.8-14.3); White Blood Cell 9.5 10^3/uL (4.4-10.8)
[2021-12-08 11:38] LABS: Calcium 9.3 mg/dL (8.5-10.1); Magnesium 2.3 mg/dL (1.6-2.6); Potassium 4.5 mmol/L (3.5-5.1)
== END | disposition home or self-care (01) ==
LOC: CHF HDHVI 07:51
PROVIDERS: ATTEND Internal Medicine Cardiovascular Disease
DX: I11.0 Hypertensive heart disease with heart failure (principal); I50.23 Acute on chronic systolic (congestive) heart failure; I25.10 Atherosclerotic heart disease of native coronary artery without angina pectoris; I25.2 Old myocardial infarction; E11.9 Type 2 diabetes mellitus without complications; J44.9 Chronic obstructive pulmonary disease, unspecified; Z79.899 Other long term (current) drug therapy; Z95.810 Presence of automatic (implantable) cardiac defibrillator; Z86.73 Personal history of transient ischemic attack (TIA), and cerebral infarction without residual deficits
CPT/HCPCS: 36415; 80048; 83036; 83735; 83880; 85025; 94618; 96365; 96366; 96372; G0463; J1071; J2260

== ENCOUNTER → 2021-12-19 | Outpatient (CLI) | payer MEDICARE ==
[2021-12-19] VITALS (11 sets, daily range): BP systolic 97–140; BP diastolic 50–77
[~2021-12-19] MED LIST changes: +CYANOCOBALAMIN (B-12) 1000 MCG/1 ML VIAL IM ONE; +CYANOCOBALAMIN (B-12) 1000 MCG/1 ML VIAL ONE; +FUROSEMIDE 100 MG/10ML VIAL IV ONE; +FUROSEMIDE 20 MG/2 ML VIAL ONE; +FUROSEMIDE 40 MG/4 ML VIAL ONE; +MAGNESIUM OXIDE 400 MG TAB ONE; +MAGNESIUM OXIDE 400 MG TAB PO ONE; +POTASSIUM EFFERVESENT TAB 25 MEQ ONE; +POTASSIUM EFFERVESENT TAB 25 MEQ PO ONE; -TESTOSTERONE CYPIONATE 200 MG/ML 1ML VIAL IM ONE; +metOLazone 5 MG TAB ONE; +metOLazone 5 MG TAB PO ONE
[2021-12-19 11:59] LABS: Basophils # (auto) 0.1 10 ^3/uL (0-0.2); Basophils % (auto) 0.7 % (0.0-2.0); Eosinophils # (auto) 0.2 10 ^3/uL (0-0.8); Eosinophils % (auto) 2.4 % (0.0-7.0); Hematocrit 47.8 % (41.0-53.0); Lymphocytes # (auto) 1.3 10 ^3/uL (0.4-5.4); Lymphocytes % (auto) 15.5 % (10.0-50.0); Mean Corpuscular Hgb Conc. 33.5 g/dL (32.0-36.0); Mean Corpuscular Volume 86.8 fL (80.0-100.0); Monocytes # (auto) 1.2 10 ^3/uL (0-1.3); Monocytes % (auto) 14.6 % (0.0-12.0); Neutrophils # (auto) 5.5 10 ^3/uL (1.6-8.6); Neutrophils % (auto) 66.8 % (37.0-80.0); Nucleated Red Blood Cells % 0.1 %; Red Blood Cells 5.51 10^6/uL (4.5-5.90); Red Cell Distribution Width 15.1 % (11.8-14.3); White Blood Cell 8.3 10^3/uL (4.4-10.8)
[2021-12-19 13:04] LABS: Potassium 3.9 mmol/L (3.5-5.1)
[2021-12-19 13:10] LABS: BUN/Creatinine Ratio 21.1; Calcium 9.6 mg/dL (8.5-10.1)
== END | disposition home or self-care (01) ==
LOC: CHF HDHVI 07:49
PROVIDERS: ATTEND Internal Medicine Cardiovascular Disease
DX: I11.0 Hypertensive heart disease with heart failure (principal); I50.23 Acute on chronic systolic (congestive) heart failure; I25.10 Atherosclerotic heart disease of native coronary artery without angina pectoris; J44.9 Chronic obstructive pulmonary disease, unspecified; E11.9 Type 2 diabetes mellitus without complications; I25.2 Old myocardial infarction; E29.1 Testicular hypofunction; Z79.899 Other long term (current) drug therapy; Z95.810 Presence of automatic (implantable) cardiac defibrillator; Z86.73 Personal history of transient ischemic attack (TIA), and cerebral infarction without residual deficits
CPT/HCPCS: 36415; 80048; 82306; 83880; 85025; 96365; 96366; 96372; 96375; G0463; J1940; J2260; J3420

== ENCOUNTER → 2021-12-28 | Outpatient (CLI) | payer MEDICARE ==
[2021-12-28] VITALS (12 sets, daily range): BP systolic 100–134; BP diastolic 50–71
[~2021-12-28] VITALS: Ht 30.5 cm; Wt 114.6 kg
[~2021-12-28] MED LIST changes: -CYANOCOBALAMIN (B-12) 1000 MCG/1 ML VIAL IM ONE; -CYANOCOBALAMIN (B-12) 1000 MCG/1 ML VIAL ONE; -FUROSEMIDE 100 MG/10ML VIAL IV ONE; -FUROSEMIDE 20 MG/2 ML VIAL ONE; -FUROSEMIDE 40 MG/4 ML VIAL ONE; -MAGNESIUM OXIDE 400 MG TAB ONE; -MAGNESIUM OXIDE 400 MG TAB PO ONE; +TESTOSTERONE CYPIONATE 200 MG/ML 1ML VIAL IM ONE
[2021-12-28 11:27] LABS: Basophils # (auto) 0 10 ^3/uL (0-0.2); Basophils % (auto) 0.3 % (0.0-2.0); Eosinophils # (auto) 0.1 10 ^3/uL (0-0.8); Eosinophils % (auto) 1.3 % (0.0-7.0); Hematocrit 46.4 % (41.0-53.0); Hemoglobin 15.7 g/dL (13.5-17.5); Lymphocytes # (auto) 1.2 10 ^3/uL (0.4-5.4); Lymphocytes % (auto) 11.7 % (10.0-50.0); Mean Corpuscular Hemoglobin 29.4 pg (28.0-32.0); Mean Corpuscular Hgb Conc. 33.8 g/dL (32.0-36.0); Monocytes # (auto) 1.2 10 ^3/uL (0-1.3); Monocytes % (auto) 11.2 % (0.0-12.0); Neutrophils # (auto) 7.8 10 ^3/uL (1.6-8.6); Neutrophils % (auto) 75.5 % (37.0-80.0); Nucleated Red Blood Cells % 0.1 %; Red Blood Cells 5.34 10^6/uL (4.5-5.90); Red Cell Distribution Width 14.7 % (11.8-14.3); White Blood Cell 10.3 10^3/uL (4.4-10.8)
[2021-12-28 12:15] LABS: Calcium 9.1 mg/dL (8.5-10.1); Magnesium 2.4 mg/dL (1.6-2.6); Potassium 4.6 mmol/L (3.5-5.1)
[2021-12-28 12:17] LABS: BUN/Creatinine Ratio 19.2
== END | disposition home or self-care (01) ==
LOC: Rad HDHVI 07:53
PROVIDERS: ATTEND Internal Medicine Cardiovascular Disease
DX: I11.0 Hypertensive heart disease with heart failure (principal); I50.23 Acute on chronic systolic (congestive) heart failure; E29.1 Testicular hypofunction; I25.10 Atherosclerotic heart disease of native coronary artery without angina pectoris; I25.2 Old myocardial infarction; J44.9 Chronic obstructive pulmonary disease, unspecified; E11.9 Type 2 diabetes mellitus without complications; Z79.899 Other long term (current) drug therapy; Z95.810 Presence of automatic (implantable) cardiac defibrillator; Z86.73 Personal history of transient ischemic attack (TIA), and cerebral infarction without residual deficits
CPT/HCPCS: 36415; 80048; 83735; 83880; 85025; 93306; 96365; 96366; 96372; G0463; J1071; J2260

== ENCOUNTER → 2022-01-06 | Outpatient (CLI) | payer MEDICARE ==
[2022-01-06] VITALS (11 sets, daily range): BP systolic 95–123; BP diastolic 45–71
[~2022-01-06] MED LIST changes: +MILRINONE 20MG/100ML 100 ML IV SCH; -POTASSIUM EFFERVESENT TAB 25 MEQ ONE; -POTASSIUM EFFERVESENT TAB 25 MEQ PO ONE; -TESTOSTERONE CYPIONATE 200 MG/ML 1ML VIAL IM ONE; -metOLazone 5 MG TAB ONE; -metOLazone 5 MG TAB PO ONE
[2022-01-06 11:52] LABS: Basophils # (auto) 0 10 ^3/uL (0-0.2); Basophils % (auto) 0.4 % (0.0-2.0); Eosinophils # (auto) 0.1 10 ^3/uL (0-0.8); Eosinophils % (auto) 1.2 % (0.0-7.0); Hematocrit 48.3 % (41.0-53.0); Hemoglobin 16.4 g/dL (13.5-17.5); Lymphocytes # (auto) 1.5 10 ^3/uL (0.4-5.4); Lymphocytes % (auto) 14.8 % (10.0-50.0); Mean Corpuscular Hemoglobin 29.6 pg (28.0-32.0); Mean Corpuscular Volume 87.2 fL (80.0-100.0); Monocytes # (auto) 1.3 10 ^3/uL (0-1.3); Monocytes % (auto) 13.2 % (0.0-12.0); Neutrophils # (auto) 7.1 10 ^3/uL (1.6-8.6); Neutrophils % (auto) 70.4 % (37.0-80.0); Nucleated Red Blood Cells % 0.2 %; Red Blood Cells 5.54 10^6/uL (4.5-5.90); Red Cell Distribution Width 14.8 % (11.8-14.3); White Blood Cell 10.1 10^3/uL (4.4-10.8)
[2022-01-06 12:18] LABS: Albumin 3.7 g/dL (3.4-5.0); Calcium 9.1 mg/dL (8.5-10.1); Magnesium 2.8 mg/dL (1.6-2.6); Potassium 3.3 mmol/L (3.5-5.1)
[2022-01-06 12:23] LABS: BUN/Creatinine Ratio 14.7; Bilirubin, Total 0.8 mg/dL (0.2-1.0); Total Protein 7.9 g/dL (6.4-8.2)
== END | disposition home or self-care (01) ==
LOC: CHF HDHVI 07:57
PROVIDERS: ATTEND Internal Medicine Cardiovascular Disease
DX: I11.0 Hypertensive heart disease with heart failure (principal); I50.23 Acute on chronic systolic (congestive) heart failure; I25.10 Atherosclerotic heart disease of native coronary artery without angina pectoris; I25.2 Old myocardial infarction; J44.9 Chronic obstructive pulmonary disease, unspecified; E11.9 Type 2 diabetes mellitus without complications; Z79.899 Other long term (current) drug therapy; Z95.810 Presence of automatic (implantable) cardiac defibrillator; Z86.73 Personal history of transient ischemic attack (TIA), and cerebral infarction without residual deficits
CPT/HCPCS: 36415; 80053; 83735; 83880; 85025; 96365; 96366; G0463; J2260

== ENCOUNTER → 2022-01-27 | Outpatient (CLI) | payer MEDICARE ==
[2022-01-27] VITALS (10 sets, daily range): BP systolic 91–165; BP diastolic 41–85
[~2022-01-27] MED LIST changes: -MILRINONE 20MG/100ML 100 ML IV SCH
[2022-01-27 09:10] LABS: Basophils # (auto) 0 10 ^3/uL (0-0.2); Basophils % (auto) 0.4 % (0.0-2.0); Eosinophils # (auto) 0.1 10 ^3/uL (0-0.8); Eosinophils % (auto) 1.2 % (0.0-7.0); Hemoglobin 17.5 g/dL (13.5-17.5); Lymphocytes # (auto) 1.3 10 ^3/uL (0.4-5.4); Lymphocytes % (auto) 15.4 % (10.0-50.0); Mean Corpuscular Hemoglobin 30.6 pg (28.0-32.0); Mean Corpuscular Hgb Conc. 34.3 g/dL (32.0-36.0); Mean Corpuscular Volume 89.1 fL (80.0-100.0); Monocytes # (auto) 1.2 10 ^3/uL (0-1.3); Monocytes % (auto) 14.4 % (0.0-12.0); Neutrophils # (auto) 5.6 10 ^3/uL (1.6-8.6); Neutrophils % (auto) 68.6 % (37.0-80.0); Nucleated Red Blood Cells % 0.8 %; Red Blood Cells 5.72 10^6/uL (4.5-5.90); Red Cell Distribution Width 15.1 % (11.8-14.3); White Blood Cell 8.2 10^3/uL (4.4-10.8)
[2022-01-27 09:16] LABS: BUN/Creatinine Ratio 17.4; Calcium 9.4 mg/dL (8.5-10.1); Magnesium 2.1 mg/dL (1.6-2.6); Potassium 4.2 mmol/L (3.5-5.1)
== END | disposition home or self-care (01) ==
LOC: CHF HDHVI 07:58
PROVIDERS: ATTEND Internal Medicine Cardiovascular Disease
DX: I11.0 Hypertensive heart disease with heart failure (principal); I50.23 Acute on chronic systolic (congestive) heart failure; I25.10 Atherosclerotic heart disease of native coronary artery without angina pectoris; I25.2 Old myocardial infarction; J44.9 Chronic obstructive pulmonary disease, unspecified; E11.9 Type 2 diabetes mellitus without complications; Z79.899 Other long term (current) drug therapy; Z95.810 Presence of automatic (implantable) cardiac defibrillator; Z86.73 Personal history of transient ischemic attack (TIA), and cerebral infarction without residual deficits
CPT/HCPCS: 36415; 80048; 83735; 83880; 85025; 96365; 96366; G0463; J2260

== ENCOUNTER → 2022-02-02 | Outpatient (CLI) | payer MEDICARE ==
[2022-02-02] VITALS (11 sets, daily range): BP systolic 108–142; BP diastolic 54–71
[~2022-02-02] VITALS: Ht 30.5 cm; Wt 114.3 kg
[~2022-02-02] MED LIST changes: +CYANOCOBALAMIN (B-12) 1000 MCG/1 ML VIAL IM ONE; +CYANOCOBALAMIN (B-12) 1000 MCG/1 ML VIAL ONE; +POTASSIUM CHL 20 Meq TABLET PO ONE; +metOLazone 5 MG TAB ONE; +metOLazone 5 MG TAB PO ONE
[2022-02-02 10:50] LABS: Basophils # (auto) 0 10 ^3/uL (0-0.2); Basophils % (auto) 0.7 % (0.0-2.0); Eosinophils # (auto) 0.1 10 ^3/uL (0-0.8); Eosinophils % (auto) 1.6 % (0.0-7.0); Hematocrit 49.8 % (41.0-53.0); Hemoglobin 16.6 g/dL (13.5-17.5); Lymphocytes % (auto) 12.9 % (10.0-50.0); Mean Corpuscular Hemoglobin 29.4 pg (28.0-32.0); Mean Corpuscular Hgb Conc. 33.4 g/dL (32.0-36.0); Mean Corpuscular Volume 88.1 fL (80.0-100.0); Monocytes % (auto) 12.7 % (0.0-12.0); Neutrophils # (auto) 5.4 10 ^3/uL (1.6-8.6); Neutrophils % (auto) 72.1 % (37.0-80.0); Nucleated Red Blood Cells % 0.1 %; Red Blood Cells 5.65 10^6/uL (4.5-5.90); Red Cell Distribution Width 14.7 % (11.8-14.3); White Blood Cell 7.5 10^3/uL (4.4-10.8)
[2022-02-02 11:02] LABS: Albumin 3.7 g/dL (3.4-5.0); Calcium 8.7 mg/dL (8.5-10.1); Magnesium 2.7 mg/dL (1.6-2.6); Potassium 3.8 mmol/L (3.5-5.1)
[2022-02-02 11:06] LABS: BUN/Creatinine Ratio 21.6; Bilirubin, Total 0.7 mg/dL (0.2-1.0); Total Protein 7.6 g/dL (6.4-8.2)
== END | disposition home or self-care (01) ==
LOC: CHF HDHVI 07:51
PROVIDERS: ATTEND Internal Medicine Cardiovascular Disease
DX: I50.23 Acute on chronic systolic (congestive) heart failure (principal)
CPT/HCPCS: 36415; 80053; 83735; 83880; 85025; 96365; 96366; 96372; G0463; J2260; J3420

== ENCOUNTER → 2022-02-09 | Outpatient (CLI) | payer MEDICARE ==
[~2022-02-09] VITALS: Ht 30.5 cm; Wt 110.4 kg
[2022-02-09] VITALS (9 sets, daily range): BP systolic 103–132; BP diastolic 51–68
[~2022-02-09] MED LIST changes: -CYANOCOBALAMIN (B-12) 1000 MCG/1 ML VIAL IM ONE; -CYANOCOBALAMIN (B-12) 1000 MCG/1 ML VIAL ONE; -POTASSIUM CHL 20 Meq TABLET PO ONE; +TESTOSTERONE CYPIONATE 200 MG/ML 1ML VIAL IM ONE; -metOLazone 5 MG TAB ONE; -metOLazone 5 MG TAB PO ONE
== END | disposition home or self-care (01) ==
LOC: CHF HDHVI 08:02
PROVIDERS: ATTEND Internal Medicine Cardiovascular Disease
DX: I50.23 Acute on chronic systolic (congestive) heart failure (principal)
CPT/HCPCS: 36415; 82565; 83880; 84132; 84520; 96365; 96366; 96372; G0463; J1071; J2260

== ENCOUNTER → 2022-02-16 | Outpatient (CLI) | payer MEDICARE ==
[2022-02-16] VITALS (11 sets, daily range): BP systolic 93–149; BP diastolic 47–75
[~2022-02-16] MED LIST changes: +BUMETANIDE 2.5mg/10ml (0.25 mg/ml) INJ IV ONE; +BUMETANIDE INJECTION 20 ML ONE; +POTASSIUM CHL 10 Meq TABLET PO ONE; +POTASSIUM CHL 20 Meq TABLET PO ONE; -TESTOSTERONE CYPIONATE 200 MG/ML 1ML VIAL IM ONE
[2022-02-16 10:28] LABS: Calcium 8.3 mg/dL (8.5-10.1)
== END | disposition home or self-care (01) ==
LOC: CHF HDHVI 07:53
PROVIDERS: ATTEND Internal Medicine Cardiovascular Disease
DX: I11.0 Hypertensive heart disease with heart failure (principal); I50.23 Acute on chronic systolic (congestive) heart failure; I25.10 Atherosclerotic heart disease of native coronary artery without angina pectoris; I25.2 Old myocardial infarction; J44.9 Chronic obstructive pulmonary disease, unspecified; E11.9 Type 2 diabetes mellitus without complications; Z79.899 Other long term (current) drug therapy; Z95.810 Presence of automatic (implantable) cardiac defibrillator; Z86.73 Personal history of transient ischemic attack (TIA), and cerebral infarction without residual deficits
CPT/HCPCS: 36415; 80048; 83880; 96365; 96366; 96375; G0463; J2260

== ENCOUNTER → 2022-02-23 | Outpatient (CLI) | payer MEDICARE ==
[2022-02-23] VITALS (11 sets, daily range): BP systolic 84–147; BP diastolic 47–82
[~2022-02-23] MED LIST changes: -BUMETANIDE 2.5mg/10ml (0.25 mg/ml) INJ IV ONE; -BUMETANIDE INJECTION 20 ML ONE; -POTASSIUM CHL 10 Meq TABLET PO ONE; -POTASSIUM CHL 20 Meq TABLET PO ONE
[2022-02-23 15:26] LABS: BUN/Creatinine Ratio 17.9; Calcium 8.6 mg/dL (8.5-10.1); Potassium 4.9 mmol/L (3.5-5.1)
== END | disposition home or self-care (01) ==
LOC: CHF HDHVI 07:52
PROVIDERS: ATTEND Internal Medicine Cardiovascular Disease
DX: I11.0 Hypertensive heart disease with heart failure (principal); I50.23 Acute on chronic systolic (congestive) heart failure; I25.10 Atherosclerotic heart disease of native coronary artery without angina pectoris; I25.2 Old myocardial infarction; J44.9 Chronic obstructive pulmonary disease, unspecified; E11.9 Type 2 diabetes mellitus without complications; Z79.899 Other long term (current) drug therapy; Z95.810 Presence of automatic (implantable) cardiac defibrillator; Z86.73 Personal history of transient ischemic attack (TIA), and cerebral infarction without residual deficits
CPT/HCPCS: 36415; 80048; 96365; 96366; G0463; J2260

== ENCOUNTER → 2022-03-02 | Outpatient (CLI) | payer MEDICARE ==
[2022-03-02] VITALS (8 sets, daily range): BP systolic 100–133; BP diastolic 50–75
[~2022-03-02] MED LIST changes: +BUMETANIDE 2.5mg/10ml (0.25 mg/ml) INJ IV ONE; +BUMETANIDE INJECTION 20 ML ONE; +POTASSIUM CHL 20 Meq TABLET PO ONE
[2022-03-02 09:20] LABS: Basophils # (auto) 0 10 ^3/uL (0-0.2); Basophils % (auto) 0.3 % (0.0-2.0); Eosinophils # (auto) 0.1 10 ^3/uL (0-0.8); Eosinophils % (auto) 1.2 % (0.0-7.0); Hematocrit 47.7 % (41.0-53.0); Hemoglobin 15.8 g/dL (13.5-17.5); Lymphocytes # (auto) 1.1 10 ^3/uL (0.4-5.4); Lymphocytes % (auto) 12.1 % (10.0-50.0); Mean Corpuscular Hemoglobin 29.2 pg (28.0-32.0); Mean Corpuscular Hgb Conc. 33.2 g/dL (32.0-36.0); Mean Corpuscular Volume 87.9 fL (80.0-100.0); Monocytes % (auto) 10.8 % (0.0-12.0); Neutrophils # (auto) 6.9 10 ^3/uL (1.6-8.6); Neutrophils % (auto) 75.6 % (37.0-80.0); Nucleated Red Blood Cells % 0.3 %; Red Blood Cells 5.42 10^6/uL (4.5-5.90); Red Cell Distribution Width 14.7 % (11.8-14.3); White Blood Cell 9.2 10^3/uL (4.4-10.8)
[2022-03-02 09:51] LABS: Potassium 4.2 mmol/L (3.5-5.1)
[2022-03-02 10:46] LABS: Albumin 3.3 g/dL (3.4-5.0); BUN/Creatinine Ratio 24.4; Bilirubin, Total 0.6 mg/dL (0.2-1.0); Calcium 8.5 mg/dL (8.5-10.1); Magnesium 2.4 mg/dL (1.6-2.6); Total Protein 6.9 g/dL (6.4-8.2)
== END | disposition home or self-care (01) ==
LOC: CHF HDHVI 08:00
PROVIDERS: ATTEND Internal Medicine Cardiovascular Disease
DX: I50.23 Acute on chronic systolic (congestive) heart failure (principal)
CPT/HCPCS: 36415; 80053; 83735; 83880; 85025; 96365; 96366; 96375; G0463; J2260

== ENCOUNTER → 2022-03-07 | Outpatient (CLI) | payer MEDICARE ==
[~2022-03-07] MED LIST changes: -BUMETANIDE 2.5mg/10ml (0.25 mg/ml) INJ IV ONE; -BUMETANIDE INJECTION 20 ML ONE; -MILRINONE 20MG/100ML 100 ML IV ONE; -POTASSIUM CHL 20 Meq TABLET PO ONE
[2022-03-07 12:05] VITALS: BP 166/104
[2022-03-07 15:59] LABS: Basophils # (auto) 0 10 ^3/uL (0-0.2); Basophils % (auto) 0.4 % (0.0-2.0); Eosinophils # (auto) 0.1 10 ^3/uL (0-0.8); Eosinophils % (auto) 0.5 % (0.0-7.0); Hematocrit 51.4 % (41.0-53.0); Hemoglobin 17.3 g/dL (13.5-17.5); Lymphocytes % (auto) 9.6 % (10.0-50.0); Mean Corpuscular Hemoglobin 29.6 pg (28.0-32.0); Mean Corpuscular Hgb Conc. 33.6 g/dL (32.0-36.0); Mean Corpuscular Volume 88.1 fL (80.0-100.0); Monocytes # (auto) 1.1 10 ^3/uL (0-1.3); Neutrophils # (auto) 8.5 10 ^3/uL (1.6-8.6); Neutrophils % (auto) 79.5 % (37.0-80.0); Nucleated Red Blood Cells % 0.1 %; Red Blood Cells 5.84 10^6/uL (4.5-5.90); Red Cell Distribution Width 14.6 % (11.8-14.3); White Blood Cell 10.7 10^3/uL (4.4-10.8)
[2022-03-07 16:15] VITALS: BP 128/59
[2022-03-07 16:15] LABS: Potassium 4.4 mmol/L (3.5-5.1)
[2022-03-07 16:20] LABS: Albumin 3.6 g/dL (3.4-5.0); BUN/Creatinine Ratio 23.9; Calcium 8.5 mg/dL (8.5-10.1); Magnesium 2.7 mg/dL (1.6-2.6); Total Protein 7.4 g/dL (6.4-8.2); Uric Acid 9.8 mg/dL (3.5-7.2)
== END | disposition home or self-care (01) ==
LOC: CHF HDHVI 12:12
PROVIDERS: ATTEND Internal Medicine Cardiovascular Disease
DX: R94.31 Abnormal electrocardiogram [ECG] [EKG] (principal); I50.23 Acute on chronic systolic (congestive) heart failure; R00.0 Tachycardia, unspecified; R07.9 Chest pain, unspecified; I25.5 Ischemic cardiomyopathy
CPT/HCPCS: 36415; 80053; 83735; 83880; 84443; 84550; 85025; 85045; 93005; G0463

== ENCOUNTER → 2022-03-15 | Outpatient (CLI) | payer MEDICARE ==
[~2022-03-15] MED LIST changes: +BUMETANIDE 2.5mg/10ml (0.25 mg/ml) INJ IV ONE; +BUMETANIDE INJECTION 20 ML ONE; +CARVEDILOL 12.5 MG TAB PO ONE; +CARVEDILOL 3.125 MG TAB ONE; +POTASSIUM CHL 20 Meq TABLET PO ONE
[2022-03-15 11:30] VITALS: BP 158/107
[2022-03-15 12:59] VITALS: BP 131/93
[2022-03-15 16:01] LABS: BUN/Creatinine Ratio 22.4; Calcium 8.3 mg/dL (8.5-10.1); Potassium 4.1 mmol/L (3.5-5.1)
== END | disposition home or self-care (01) ==
LOC: CHF HDHVI 11:25
PROVIDERS: ATTEND Internal Medicine Cardiovascular Disease
DX: I25.5 Ischemic cardiomyopathy (principal); I11.0 Hypertensive heart disease with heart failure; I50.23 Acute on chronic systolic (congestive) heart failure; I48.91 Unspecified atrial fibrillation; R06.02 Shortness of breath; R60.9 Edema, unspecified
CPT/HCPCS: 36415; 80048; 96374; G0463

== ENCOUNTER → 2022-03-16 | Outpatient (CLI) | payer MEDICARE ==
[2022-03-16] VITALS (11 sets, daily range): BP systolic 92–138; BP diastolic 56–93
[~2022-03-16] MED LIST changes: -BUMETANIDE 2.5mg/10ml (0.25 mg/ml) INJ IV ONE; -BUMETANIDE INJECTION 20 ML ONE; -CARVEDILOL 12.5 MG TAB PO ONE; -CARVEDILOL 3.125 MG TAB ONE; +MILRINONE 20MG/100ML 100 ML IV ONE; -POTASSIUM CHL 20 Meq TABLET PO ONE
[2022-03-16 12:06] LABS: BUN/Creatinine Ratio 20.7; Calcium 8.6 mg/dL (8.5-10.1); Potassium 4.1 mmol/L (3.5-5.1)
== END | disposition home or self-care (01) ==
LOC: CHF HDHVI 07:58
PROVIDERS: ATTEND Internal Medicine Cardiovascular Disease
DX: I50.23 Acute on chronic systolic (congestive) heart failure (principal)
CPT/HCPCS: 36415; 80048; 96365; 96366; G0463; J2260

== ENCOUNTER → 2022-03-23 | Outpatient (CLI) | payer MEDICARE ==
[~2022-03-23] VITALS: Ht 165.1 cm; Wt 110.9 kg
[2022-03-23] VITALS (11 sets, daily range): BP systolic 100–133; BP diastolic 55–76
[~2022-03-23] MED LIST changes: +AMIO400T3 PO; +BACI-5 EX; +CARV12.544 PO; +CYANOCOBALAMIN (B-12) 1000 MCG/1 ML VIAL IM ONE; +CYANOCOBALAMIN (B-12) 1000 MCG/1 ML VIAL ONE; +FLU220IH INH; +ISOS60TA24 PO; +METO5TAB5 PO; +PANT40TA2 PO; +POTASSIUM CHL 10 Meq TABLET PO ONE; +POTASSIUM CHL 20 Meq TABLET PO ONE; +PREG50CA PO; +RIVA10TA PO; +TESTOSTERONE CYPIONATE 200 MG/ML 1ML VIAL IM ONE; +TORS20TA20 PO; +VERI5TAB PO
[2022-03-23 11:28] LABS: Basophils # (auto) 0.1 10 ^3/uL (0-0.2); Basophils % (auto) 0.6 % (0.0-2.0); Eosinophils # (auto) 0.2 10 ^3/uL (0-0.8); Eosinophils % (auto) 1.5 % (0.0-7.0); Hematocrit 50.3 % (41.0-53.0); Hemoglobin 16.7 g/dL (13.5-17.5); Lymphocytes # (auto) 1.2 10 ^3/uL (0.4-5.4); Lymphocytes % (auto) 10.9 % (10.0-50.0); Mean Corpuscular Hemoglobin 29.1 pg (28.0-32.0); Mean Corpuscular Hgb Conc. 33.1 g/dL (32.0-36.0); Mean Corpuscular Volume 87.9 fL (80.0-100.0); Monocytes # (auto) 1.3 10 ^3/uL (0-1.3); Monocytes % (auto) 11.2 % (0.0-12.0); Neutrophils # (auto) 8.6 10 ^3/uL (1.6-8.6); Neutrophils % (auto) 75.8 % (37.0-80.0); Nucleated Red Blood Cells % 0.1 %; Red Blood Cells 5.73 10^6/uL (4.5-5.90); Red Cell Distribution Width 14.7 % (11.8-14.3); White Blood Cell 11.4 10^3/uL (4.4-10.8)
[2022-03-23 11:43] LABS: INR 1.26 (0.9-1.15); Partial Thromboplastin Time 26.6 sec (23.6-33.0)
[2022-03-23 11:53] LABS: Albumin 3.3 g/dL (3.4-5.0); Calcium 9.1 mg/dL (8.5-10.1); Magnesium 1.9 mg/dL (1.6-2.6); Potassium 3.5 mmol/L (3.5-5.1)
[2022-03-23 11:58] LABS: BUN/Creatinine Ratio 22.6; Total Protein 6.8 g/dL (6.4-8.2)
== END | disposition home or self-care (01) ==
LOC: CHF HDHVI 07:52
PROVIDERS: ATTEND Internal Medicine Cardiovascular Disease
DX: I11.0 Hypertensive heart disease with heart failure (principal); I50.23 Acute on chronic systolic (congestive) heart failure; E29.1 Testicular hypofunction; R53.83 Other fatigue; I25.10 Atherosclerotic heart disease of native coronary artery without angina pectoris; I25.2 Old myocardial infarction; I25.5 Ischemic cardiomyopathy; I48.91 Unspecified atrial fibrillation; J44.9 Chronic obstructive pulmonary disease, unspecified; E11.9 Type 2 diabetes mellitus without complications; Z95.810 Presence of automatic (implantable) cardiac defibrillator; Z86.73 Personal history of transient ischemic attack (TIA), and cerebral infarction without residual deficits; Z79.899 Other long term (current) drug therapy
CPT/HCPCS: 36415; 80053; 83735; 83880; 85025; 85610; 85730; 96365; 96366; 96372; G0463; J1071; J2260; J3420

== ENCOUNTER → 2022-03-24 | Outpatient (CLI) | payer MEDICARE ==
[~2022-03-24] MED LIST changes: +BUMETANIDE 2.5mg/10ml (0.25 mg/ml) INJ IV ONE; +BUMETANIDE INJECTION 20 ML ONE; -CYANOCOBALAMIN (B-12) 1000 MCG/1 ML VIAL IM ONE; -CYANOCOBALAMIN (B-12) 1000 MCG/1 ML VIAL ONE; -MILRINONE 20MG/100ML 100 ML IV ONE; -POTASSIUM CHL 10 Meq TABLET PO ONE; -TESTOSTERONE CYPIONATE 200 MG/ML 1ML VIAL IM ONE
[2022-03-24 09:05] VITALS: BP 128/67
[2022-03-24 09:35] VITALS: BP 134/77
[2022-03-24 13:06] VITALS: BP 98/60
== END | disposition home or self-care (01) ==
LOC: Rad HDHVI 08:57
PROVIDERS: ATTEND Internal Medicine Cardiovascular Disease
DX: I11.0 Hypertensive heart disease with heart failure (principal); I50.23 Acute on chronic systolic (congestive) heart failure; I25.5 Ischemic cardiomyopathy; I48.91 Unspecified atrial fibrillation; I25.10 Atherosclerotic heart disease of native coronary artery without angina pectoris; J44.9 Chronic obstructive pulmonary disease, unspecified; I25.2 Old myocardial infarction; E11.9 Type 2 diabetes mellitus without complications; Z79.899 Other long term (current) drug therapy; Z86.73 Personal history of transient ischemic attack (TIA), and cerebral infarction without residual deficits; Z95.810 Presence of automatic (implantable) cardiac defibrillator
CPT/HCPCS: 71046; 96374; G0463

== ENCOUNTER → 2022-03-24 | Outpatient (CLI) | payer MEDICARE ==
[~2022-03-24] VITALS: Ht 177.8 cm; Wt 111.1 kg
[~2022-03-24] MED LIST changes: +ALLO300T2 PO; +AMIO200T4 PO; -BUMETANIDE 2.5mg/10ml (0.25 mg/ml) INJ IV ONE; -BUMETANIDE INJECTION 20 ML ONE; +INS7030I SC; +INSUINJ37 SC; +LEVO100T8 PO; +OXYC1CAP PO; +POTA-180 PO; +POTA-220 PO; -POTASSIUM CHL 20 Meq TABLET PO ONE
== END | disposition home or self-care (01) ==
LOC: CATH 11:00 → EDSTATUS 03-28 13:04
PROVIDERS: ATTEND Internal Medicine Cardiovascular Disease
DX: R94.39 Abnormal result of other cardiovascular function study (principal); Z53.8 Procedure and treatment not carried out for other reasons; I20.9 Angina pectoris, unspecified; G47.30 Sleep apnea, unspecified; Z95.5 Presence of coronary angioplasty implant and graft; Z82.49 Family history of ischemic heart disease and other diseases of the circulatory system; Z83.3 Family history of diabetes mellitus; Z80.3 Family history of malignant neoplasm of breast; Z83.42 Family history of familial hypercholesterolemia; Z82.5 Family history of asthma and other chronic lower respiratory diseases; Z81.1 Family history of alcohol abuse and dependence; Z20.822 Contact with and (suspected) exposure to COVID-19

== ENCOUNTER → 2022-03-27 | Outpatient (CLI) | payer MEDICARE ==
[2022-03-27] VITALS (10 sets, daily range): BP systolic 81–112; BP diastolic 46–68
[~2022-03-27] MED LIST changes: -ALLO300T2 PO; -AMIO200T4 PO; -INS7030I SC; -INSUINJ37 SC; -LEVO100T8 PO; +MILRINONE 20MG/100ML 100 ML IV ONE; -OXYC1CAP PO; -POTA-180 PO; -POTA-220 PO
[2022-03-27 11:45] LABS: Basophils # (auto) 0 10 ^3/uL (0-0.2); Basophils % (auto) 0.4 % (0.0-2.0); Eosinophils # (auto) 0.2 10 ^3/uL (0-0.8); Eosinophils % (auto) 1.5 % (0.0-7.0); Hematocrit 49.8 % (41.0-53.0); Hemoglobin 16.4 g/dL (13.5-17.5); Lymphocytes % (auto) 9.2 % (10.0-50.0); Mean Corpuscular Hemoglobin 29.4 pg (28.0-32.0); Mean Corpuscular Hgb Conc. 33.1 g/dL (32.0-36.0); Mean Corpuscular Volume 88.8 fL (80.0-100.0); Monocytes # (auto) 1.3 10 ^3/uL (0-1.3); Monocytes % (auto) 12.4 % (0.0-12.0); Neutrophils % (auto) 76.5 % (37.0-80.0); Red Cell Distribution Width 14.5 % (11.8-14.3); White Blood Cell 10.4 10^3/uL (4.4-10.8)
[2022-03-27 11:57] LABS: Potassium 3.6 mmol/L (3.5-5.1)
== END | disposition home or self-care (01) ==
LOC: CHF HDHVI 08:01
PROVIDERS: ATTEND Internal Medicine Cardiovascular Disease
DX: I11.0 Hypertensive heart disease with heart failure (principal); I50.23 Acute on chronic systolic (congestive) heart failure; I25.10 Atherosclerotic heart disease of native coronary artery without angina pectoris; I25.2 Old myocardial infarction; I25.5 Ischemic cardiomyopathy; I48.91 Unspecified atrial fibrillation; J44.9 Chronic obstructive pulmonary disease, unspecified; E11.9 Type 2 diabetes mellitus without complications; Z79.899 Other long term (current) drug therapy; Z95.810 Presence of automatic (implantable) cardiac defibrillator; Z86.73 Personal history of transient ischemic attack (TIA), and cerebral infarction without residual deficits
CPT/HCPCS: 36415; 82565; 83880; 84132; 84520; 85025; 96365; 96366; G0463; J2260

== ENCOUNTER → 2022-04-07 | Outpatient (CLI) | payer MEDICARE ==
[2022-04-07] VITALS (12 sets, daily range): BP systolic 124–153; BP diastolic 74–90
[~2022-04-07] VITALS: Ht 33 cm; Wt 112.7 kg
[~2022-04-07] MED LIST changes: +BACITRACIN TOP OINT 1 UD PKG TOP ONE; +BUMETANIDE 1mg/4ml VIAL (0.25mg/ml) ONE; +BUMETANIDE INJECTION 10 ML ONE; +BUMETANIDE INJECTION 25 MG in GIVE UN-DILUTED 0 ML IV ONE; -CARV25TA PO; -INSLANTI SC; +MAGNESIUM OXIDE 400 MG TAB ONE; +MAGNESIUM OXIDE 400 MG TAB PO ONE; +ONDANSETRON HCL 4 MG/2 ML VIAL IV ONE; +ONDANSETRON HCL 4 MG/2 ML VIAL ONE; +POTASSIUM CHL 20 Meq TABLET PO ONE; +metOLazone 5 MG TAB ONE
[2022-04-07] MEDS: metOLazone 5 MG TAB PO SCH ×2 (09:00→09:40)
[2022-04-07 09:08] LABS: Basophils # (auto) 0 10 ^3/uL (0-0.2); Basophils % (auto) 0.2 % (0.0-2.0); Eosinophils # (auto) 0.2 10 ^3/uL (0-0.8); Eosinophils % (auto) 1.1 % (0.0-7.0); Hematocrit 49.9 % (41.0-53.0); Hemoglobin 16.4 g/dL (13.5-17.5); Lymphocytes # (auto) 0.8 10 ^3/uL (0.4-5.4); Lymphocytes % (auto) 5.9 % (10.0-50.0); Monocytes # (auto) 1.5 10 ^3/uL (0-1.3); Neutrophils # (auto) 10.9 10 ^3/uL (1.6-8.6); Neutrophils % (auto) 81.8 % (37.0-80.0); Red Blood Cells 5.67 10^6/uL (4.5-5.90); Red Cell Distribution Width 14.8 % (11.8-14.3); White Blood Cell 13.4 10^3/uL (4.4-10.8)
[2022-04-07 09:26] LABS: BUN/Creatinine Ratio 18.7; Calcium 8.9 mg/dL (8.5-10.1); Magnesium 1.9 mg/dL (1.6-2.6); Potassium 3.7 mmol/L (3.5-5.1)
[2022-04-07 23:39] LABS: Urine Blood Negative /uL (Negative); Urine Specific Gravity 1.008 (1.001-1.035)
== END | disposition home or self-care (01) ==
LOC: CHF HDHVI 07:58
PROVIDERS: ATTEND Internal Medicine Cardiovascular Disease
DX: I11.0 Hypertensive heart disease with heart failure (principal); I50.23 Acute on chronic systolic (congestive) heart failure; I25.10 Atherosclerotic heart disease of native coronary artery without angina pectoris; I25.2 Old myocardial infarction; I48.91 Unspecified atrial fibrillation; J44.9 Chronic obstructive pulmonary disease, unspecified; E11.9 Type 2 diabetes mellitus without complications; Z79.899 Other long term (current) drug therapy; Z95.810 Presence of automatic (implantable) cardiac defibrillator; Z86.73 Personal history of transient ischemic attack (TIA), and cerebral infarction without residual deficits
CPT/HCPCS: 36415; 71046; 80048; 80162; 81003; 82962; 83735; 83880; 85025; 86677; 87086; 96365; 96366; 96368; 96375; G0463; J2260; J2405; J3490; 96367

== ENCOUNTER → 2022-04-11 | Outpatient (CLI) | payer MEDICARE ==
[2022-04-11] VITALS (12 sets, daily range): BP systolic 109–139; BP diastolic 68–91
[~2022-04-11] MED LIST changes: -BACITRACIN TOP OINT 1 UD PKG TOP ONE; -BUMETANIDE INJECTION 10 ML ONE; +BUMETANIDE INJECTION 20 ML ONE; -MAGNESIUM OXIDE 400 MG TAB ONE; -MAGNESIUM OXIDE 400 MG TAB PO ONE; -metOLazone 5 MG TAB ONE
[2022-04-11 09:49] LABS: Potassium 3.6 mmol/L (3.5-5.1)
[2022-04-11 10:05] LABS: Magnesium 2.3 mg/dL (1.6-2.6)
== END | disposition home or self-care (01) ==
LOC: CHF HDHVI 07:57
PROVIDERS: ATTEND Internal Medicine Cardiovascular Disease
DX: I11.0 Hypertensive heart disease with heart failure (principal); I50.23 Acute on chronic systolic (congestive) heart failure; I25.10 Atherosclerotic heart disease of native coronary artery without angina pectoris; I25.2 Old myocardial infarction; I48.91 Unspecified atrial fibrillation; J44.9 Chronic obstructive pulmonary disease, unspecified; E11.9 Type 2 diabetes mellitus without complications; Z79.899 Other long term (current) drug therapy; Z95.810 Presence of automatic (implantable) cardiac defibrillator; Z86.73 Personal history of transient ischemic attack (TIA), and cerebral infarction without residual deficits
CPT/HCPCS: 36415; 82565; 83735; 83880; 84132; 84520; 96365; 96366; 96368; 96375; G0463; J2260; J2405; J3490; 96367

== ENCOUNTER → 2022-04-13 | Outpatient (CLI) | payer MEDICARE ==
[~2022-04-13] MED LIST changes: +ALBUMIN 5% 250 ML IV ONE; -BUMETANIDE 1mg/4ml VIAL (0.25mg/ml) ONE; -BUMETANIDE INJECTION 20 ML ONE; -BUMETANIDE INJECTION 25 MG in GIVE UN-DILUTED 0 ML IV ONE; -POTASSIUM CHL 20 Meq TABLET PO ONE; +SODIUM CHLORIDE 0.9% 500 ML IV ONE
[2022-04-13 08:40] VITALS: BP 71/41
[2022-04-13 09:10] VITALS: BP 79/41
[2022-04-13 09:45] VITALS: BP 80/50
[2022-04-13 11:00] VITALS: BP 82/53
[2022-04-13 11:25] VITALS: BP 94/59
[2022-04-13 11:59] LABS: Potassium 3.9 mmol/L (3.5-5.1)
[2022-04-13 13:00] VITALS: BP 103/67
== END | disposition home or self-care (01) ==
LOC: CHF HDHVI 07:52
PROVIDERS: ATTEND Internal Medicine Cardiovascular Disease
DX: I95.9 Hypotension, unspecified (principal); R11.0 Nausea; I11.0 Hypertensive heart disease with heart failure; I50.23 Acute on chronic systolic (congestive) heart failure; I25.10 Atherosclerotic heart disease of native coronary artery without angina pectoris; I25.2 Old myocardial infarction; I25.5 Ischemic cardiomyopathy; I48.91 Unspecified atrial fibrillation; E11.9 Type 2 diabetes mellitus without complications; Z79.899 Other long term (current) drug therapy; Z95.810 Presence of automatic (implantable) cardiac defibrillator; Z86.73 Personal history of transient ischemic attack (TIA), and cerebral infarction without residual deficits
CPT/HCPCS: 36415; 82565; 82962; 83880; 84132; 84520; 96361; 96365; 96375; G0463; J2405; J7040; P9045; 96367; 96374

== ENCOUNTER → 2022-04-17 | Outpatient (CLI) | payer MEDICARE ==
[2022-04-17] VITALS (12 sets, daily range): BP systolic 121–152; BP diastolic 69–93
[~2022-04-17] MED LIST changes: -ALBUMIN 5% 250 ML IV ONE; +FUROSEMIDE 100 MG/10ML VIAL IV ONE; +FUROSEMIDE 20 MG/2 ML VIAL ONE; +FUROSEMIDE INJECTION 10 ML ONE; -ONDANSETRON HCL 4 MG/2 ML VIAL IV ONE; -ONDANSETRON HCL 4 MG/2 ML VIAL ONE; +POTASSIUM CHL 20 Meq TABLET PO ONE; -SODIUM CHLORIDE 0.9% 500 ML IV ONE; +metOLazone 5 MG TAB ONE; +metOLazone 5 MG TAB PO ONE
[2022-04-17 11:38] LABS: Basophils # (auto) 0 10 ^3/uL (0-0.2); Basophils % (auto) 0.3 % (0.0-2.0); Eosinophils # (auto) 0.1 10 ^3/uL (0-0.8); Hemoglobin 15.8 g/dL (13.5-17.5); Lymphocytes % (auto) 8.4 % (10.0-50.0); Mean Corpuscular Hemoglobin 27.9 pg (28.0-32.0); Mean Corpuscular Hgb Conc. 31.6 g/dL (32.0-36.0); Mean Corpuscular Volume 88.4 fL (80.0-100.0); Monocytes # (auto) 1.4 10 ^3/uL (0-1.3); Monocytes % (auto) 11.3 % (0.0-12.0); Neutrophils # (auto) 9.8 10 ^3/uL (1.6-8.6); Nucleated Red Blood Cells % 0.1 %; Red Blood Cells 5.65 10^6/uL (4.5-5.90); Red Cell Distribution Width 15.1 % (11.8-14.3); White Blood Cell 12.5 10^3/uL (4.4-10.8)
[2022-04-17 11:56] LABS: Potassium 4.3 mmol/L (3.5-5.1)
[2022-04-17 12:10] LABS: Albumin 3.1 g/dL (3.4-5.0); BUN/Creatinine Ratio 26.7; Bilirubin, Total 1.1 mg/dL (0.2-1.0); Magnesium 2.2 mg/dL (1.6-2.6); Total Protein 7.3 g/dL (6.4-8.2)
[2022-04-18 11:34] LABS: BUN/Creatinine Ratio 20.5; Calcium 9.4 mg/dL (8.5-10.1); Potassium 4.4 mmol/L (3.5-5.1)
== END | disposition home or self-care (01) ==
LOC: CHF HDHVI 07:57
PROVIDERS: ATTEND Internal Medicine Cardiovascular Disease
DX: I11.0 Hypertensive heart disease with heart failure (principal); I50.23 Acute on chronic systolic (congestive) heart failure; I25.10 Atherosclerotic heart disease of native coronary artery without angina pectoris; I25.5 Ischemic cardiomyopathy; R60.9 Edema, unspecified; I25.2 Old myocardial infarction; E11.9 Type 2 diabetes mellitus without complications; I48.91 Unspecified atrial fibrillation; J44.9 Chronic obstructive pulmonary disease, unspecified; Z79.899 Other long term (current) drug therapy; Z86.73 Personal history of transient ischemic attack (TIA), and cerebral infarction without residual deficits; Z95.810 Presence of automatic (implantable) cardiac defibrillator
CPT/HCPCS: 36415; 80048; 80053; 83036; 83735; 83880; 85025; 96365; 96366; 96375; 96376; G0463; J1940; J2260

== ENCOUNTER 2022-05-02 16:05 | Inpatient (IN) | payer MEDICARE ==
[~2022-05-02] VITALS: Ht 177.8 cm; Wt 111.9 kg
[~2022-05-02 16:05] MED LIST changes: -ACCU-CHEK COMFORT CURVE STRIP VI SCH; -DAPAGLIFLOZIN 5 MG TAB PO SCH; -DEXTROSE (50%) 50ML SYRG IV PRN; -FUROSEMIDE INJECTION 100 MG in SODIUM CHL 0.9% 100 ML IV SCH; -InsuLIN REG 1unit/0.01ml Soln (100units/ml) SC SCH; -MILRINONE 20MG/100ML 100 ML IV ONE; -MILRINONE 20MG/100ML 100 ML IV SCH; -MORPHINE SULFATE INJ 2 MG/ml SYRG IV PRN; -NITROGLYCERIN 0.4 MG SL TAB SL PRN; -PANTOPRAZOLE 40 MG TAB PO SCH; -POTASSIUM CHL 20 Meq TABLET PO ONE; -POTASSIUM CHL 20 Meq TABLET PO SCH; -PREGABALIN 25 MG CAP PO SCH; -SACUBITRIL-VALSARTAN 24mg/26mg TAB PO SCH; -SPIRONOLACTONE 25 MG TAB PO SCH; -hydrOXYchloroQUINE SULFATE 200 MG TAB PO SCH
[2022-05-02 17:00] VITALS: BP 130/73
[2022-05-02] MEDS ORDERED: DEXTROSE (50%) 50ML SYRG IV PRN (18:45)
[2022-05-02] MEDS ORDERED: MILRINONE 20MG/100ML 100 ML IV SCH (18:45)
[2022-05-02] MEDS ORDERED: NITROGLYCERIN 0.4 MG SL TAB SL PRN (18:45)
[2022-05-02] MEDS ORDERED: MORPHINE SULFATE INJ 2 MG/ml SYRG IV PRN (18:45)
[2022-05-02 20:00] VITALS: BP 121/72
[2022-05-02] MEDS: MILRINONE 20MG/100ML 100 ML IV SCH (20:05)
[2022-05-02] MEDS: FUROSEMIDE INJECTION 100 MG in SODIUM CHL 0.9% 100 ML IV SCH (20:06)
[2022-05-02 22:00] VITALS: BP 121/72
[2022-05-02] MEDS: ACCU-CHEK COMFORT CURVE STRIP VI SCH (22:00)
[2022-05-02] MEDS ORDERED: PATIENTS OWN MEDICATION PO SCH (22:00)
[2022-05-02] MEDS: VERQUVO 5 MG PO SCH (23:23)
[2022-05-02] MEDS: POTASSIUM CHL 20 Meq TABLET PO SCH (23:24)
[2022-05-02] MEDS: SACUBITRIL-VALSARTAN 24mg/26mg TAB PO SCH (23:24)
[2022-05-02] MEDS: PREGABALIN 25 MG CAP PO SCH (23:24)
[2022-05-02] MEDS ORDERED: InsuLIN REG 1unit/0.01ml Soln (100units/ml) SC ONE (23:45)
[2022-05-02] MEDS: InsuLIN REG 1unit/0.01ml Soln (100units/ml) SC SCH (23:57)
[2022-05-03] MEDS ORDERED: FUROSEMIDE INJECTION 10 ML ONE (01:14)
[2022-05-03] MEDS: FUROSEMIDE INJECTION 100 MG in SODIUM CHL 0.9% 100 ML IV SCH ×5 (01:31→19:45)
[2022-05-03] MEDS: MILRINONE 20MG/100ML 100 ML IV SCH ×3 (03:16→19:12)
[2022-05-03 05:00] VITALS: BP 109/71
[2022-05-03 06:02] LABS: Basophils # (auto) 0 10 ^3/uL (0-0.2); Basophils % (auto) 0.2 % (0.0-2.0); Eosinophils # (auto) 0.1 10 ^3/uL (0-0.8); Eosinophils % (auto) 0.7 % (0.0-7.0); Hematocrit 48.4 % (41.0-53.0); Lymphocytes # (auto) 0.9 10 ^3/uL (0.4-5.4); Lymphocytes % (auto) 6.7 % (10.0-50.0); Mean Corpuscular Hemoglobin 29.3 pg (28.0-32.0); Mean Corpuscular Hgb Conc. 33.1 g/dL (32.0-36.0); Mean Corpuscular Volume 88.5 fL (80.0-100.0); Monocytes # (auto) 2.2 10 ^3/uL (0-1.3); Monocytes % (auto) 17.1 % (0.0-12.0); Neutrophils # (auto) 9.5 10 ^3/uL (1.6-8.6); Neutrophils % (auto) 75.3 % (37.0-80.0); Nucleated Red Blood Cells % 0.1 %; Red Blood Cells 5.46 10^6/uL (4.5-5.90); Red Cell Distribution Width 16.4 % (11.8-14.3); White Blood Cell 12.6 10^3/uL (4.4-10.8)
[2022-05-03 06:21] LABS: Albumin 3.5 g/dL (3.4-5.0); BUN/Creatinine Ratio 31.8; Bilirubin, Total 2.3 mg/dL (0.2-1.0); Calcium 8.7 mg/dL (8.5-10.1); Total Protein 6.4 g/dL (6.4-8.2)
[2022-05-03] MEDS: ACCU-CHEK COMFORT CURVE STRIP VI SCH ×4 (06:23→22:22)
[2022-05-03] MEDS: InsuLIN REG 1unit/0.01ml Soln (100units/ml) SC SCH ×4 (06:27→22:21)
[2022-05-03] MEDS: INSULIN LANTUS (GLARGINE) 1 /0.01ml (100units/ml) SC SCH ×2 (06:28→22:14)
[2022-05-03 08:43] VITALS: BP 131/76
[2022-05-03] MEDS: VERQUVO 5 MG PO SCH ×2 (09:21→22:18)
[2022-05-03] MEDS: SPIRONOLACTONE 25 MG TAB PO SCH (09:21)
[2022-05-03] MEDS: PANTOPRAZOLE 40 MG TAB PO SCH (09:22)
[2022-05-03] MEDS: PREGABALIN 25 MG CAP PO SCH ×2 (09:22→22:08)
[2022-05-03] MEDS: POTASSIUM CHL 20 Meq TABLET PO SCH ×2 (09:22→22:08)
[2022-05-03] MEDS: hydrOXYchloroQUINE SULFATE 200 MG TAB PO SCH (09:22)
[2022-05-03] MEDS: SACUBITRIL-VALSARTAN 24mg/26mg TAB PO SCH ×2 (09:23→22:08)
[2022-05-03] MEDS: DAPAGLIFLOZIN 5 MG TAB PO SCH (09:24)
[2022-05-03] MEDS ORDERED: PATIENTS OWN MEDICATION PO SCH (10:00)
[2022-05-03 11:26] LABS: Potassium 3.8 mmol/L (3.5-5.1)
[2022-05-03 12:43] VITALS: BP 81/41
[2022-05-03 16:58] VITALS: BP 107/56
[2022-05-03 21:38] VITALS: BP 109/60
[2022-05-04] MEDS: FUROSEMIDE INJECTION 100 MG in SODIUM CHL 0.9% 100 ML IV SCH ×2 (00:45→05:23)
[2022-05-04] MEDS: MILRINONE 20MG/100ML 100 ML IV SCH ×3 (02:10→17:32)
[2022-05-04] MEDS ORDERED: FUROSEMIDE INJECTION 10 ML ONE (04:54)
[2022-05-04 05:07] VITALS: BP 118/66
[2022-05-04] MEDS: InsuLIN REG 1unit/0.01ml Soln (100units/ml) SC SCH ×4 (06:10→21:44)
[2022-05-04] MEDS: INSULIN LANTUS (GLARGINE) 1 /0.01ml (100units/ml) SC SCH ×2 (06:12→21:41)
[2022-05-04] MEDS: ACCU-CHEK COMFORT CURVE STRIP VI SCH ×4 (06:13→21:46)
[2022-05-04 06:54] LABS: Calcium 8.5 mg/dL (8.5-10.1); Potassium 3.9 mmol/L (3.5-5.1)
[2022-05-04 06:57] LABS: BUN/Creatinine Ratio 28.9; Bilirubin, Total 1.6 mg/dL (0.2-1.0); Total Protein 6.2 g/dL (6.4-8.2)
[2022-05-04 07:40] LABS: Basophils # (auto) 0 10 ^3/uL (0-0.2); Basophils % (auto) 0.3 % (0.0-2.0); Eosinophils # (auto) 0.2 10 ^3/uL (0-0.8); Eosinophils % (auto) 1.5 % (0.0-7.0); Hematocrit 45.3 % (41.0-53.0); Hemoglobin 14.3 g/dL (13.5-17.5); Lymphocytes # (auto) 0.9 10 ^3/uL (0.4-5.4); Lymphocytes % (auto) 6.3 % (10.0-50.0); Mean Corpuscular Hemoglobin 27.7 pg (28.0-32.0); Mean Corpuscular Hgb Conc. 31.7 g/dL (32.0-36.0); Mean Corpuscular Volume 87.5 fL (80.0-100.0); Monocytes # (auto) 2.1 10 ^3/uL (0-1.3); Monocytes % (auto) 14.3 % (0.0-12.0); Neutrophils # (auto) 11.1 10 ^3/uL (1.6-8.6); Neutrophils % (auto) 77.6 % (37.0-80.0); Nucleated Red Blood Cells % 0.1 %; Red Blood Cells 5.18 10^6/uL (4.5-5.90); Red Cell Distribution Width 16.2 % (11.8-14.3); White Blood Cell 14.3 10^3/uL (4.4-10.8)
[2022-05-04 09:42] VITALS: BP 89/42
[2022-05-04] MEDS: SPIRONOLACTONE 25 MG TAB PO SCH (10:30)
[2022-05-04] MEDS: VERQUVO 5 MG PO SCH ×2 (10:30→21:36)
[2022-05-04] MEDS: SACUBITRIL-VALSARTAN 24mg/26mg TAB PO SCH ×2 (10:31→21:35)
[2022-05-04] MEDS: POTASSIUM CHL 20 Meq TABLET PO SCH ×2 (10:31→21:35)
[2022-05-04] MEDS: DAPAGLIFLOZIN 5 MG TAB PO SCH (10:31)
[2022-05-04] MEDS: hydrOXYchloroQUINE SULFATE 200 MG TAB PO SCH (10:32)
[2022-05-04] MEDS: PANTOPRAZOLE 40 MG TAB PO SCH (10:32)
[2022-05-04] MEDS: PREGABALIN 25 MG CAP PO SCH ×2 (10:32→21:35)
[2022-05-04] MEDS ORDERED: INS7030I SC (11:40)
[2022-05-04] MEDS ORDERED: LEVO100T8 PO (11:40)
[2022-05-04] MEDS ORDERED: ALLO300T2 PO (11:40)
[2022-05-04] MEDS ORDERED: AMIO200T4 PO (11:40)
[2022-05-04] MEDS ORDERED: OXYC1CAP PO (11:40)
[2022-05-04] MEDS: FUROSEMIDE INJECTION 100 MG in D5W 5% 100 ML IV SCH ×3 (11:42→23:57)
[2022-05-04] MEDS ORDERED: POTA-220 PO (11:43)
[2022-05-04] MEDS ORDERED: INSUINJ37 SC (11:45)
[2022-05-04 13:19] VITALS: BP 125/66
[2022-05-04 17:12] VITALS: BP 99/50
[2022-05-04] MEDS: ceFAZolin 2 GM in D5W 5% 100 ML IV SCH ×2 (17:30→21:46)
[2022-05-04] MEDS ORDERED: POTA-180 PO (18:13)
[2022-05-04 22:00] VITALS: BP 82/35
[2022-05-04 23:01] VITALS: BP 89/46
[2022-05-04] MEDS ORDERED: ALBUMIN 25% 100 ML IV ONE ×2 (23:30→23:45)
[2022-05-05] MEDS: MILRINONE 20MG/100ML 100 ML IV SCH ×3 (01:10→16:30)
[2022-05-05 05:00] VITALS: BP 104/68
[2022-05-05] MEDS: ceFAZolin 2 GM in D5W 5% 100 ML IV SCH ×3 (05:52→22:03)
[2022-05-05] MEDS: InsuLIN REG 1unit/0.01ml Soln (100units/ml) SC SCH ×4 (05:56→22:08)
[2022-05-05] MEDS: INSULIN LANTUS (GLARGINE) 1 /0.01ml (100units/ml) SC SCH ×2 (05:57→22:09)
[2022-05-05] MEDS: ACCU-CHEK COMFORT CURVE STRIP VI SCH ×4 (05:58→22:09)
[2022-05-05 09:00] VITALS: BP 89/49
[2022-05-05] MEDS: VERQUVO 5 MG PO SCH ×2 (10:06→21:41)
[2022-05-05] MEDS: SPIRONOLACTONE 25 MG TAB PO SCH (10:06)
[2022-05-05] MEDS: SACUBITRIL-VALSARTAN 24mg/26mg TAB PO SCH ×2 (10:07→21:41)
[2022-05-05] MEDS: DAPAGLIFLOZIN 5 MG TAB PO SCH (10:07)
[2022-05-05] MEDS: PREGABALIN 25 MG CAP PO SCH ×2 (10:07→21:40)
[2022-05-05] MEDS: POTASSIUM CHL 20 Meq TABLET PO SCH ×2 (10:07→21:40)
[2022-05-05] MEDS: hydrOXYchloroQUINE SULFATE 200 MG TAB PO SCH (10:08)
[2022-05-05] MEDS: PANTOPRAZOLE 40 MG TAB PO SCH (10:08)
[2022-05-05 12:59] VITALS: BP 103/65
[2022-05-05] MEDS ORDERED: OXYCODONE W/ ACETAMINOPHEN 5/325MG TABLET PO PRN (16:15)
[2022-05-05 16:43] VITALS: BP 103/42
[2022-05-05] MEDS: FUROSEMIDE INJECTION 100 MG in D5W 5% 100 ML IV SCH (16:48)
[2022-05-05] MEDS: OXYCODONE W/ ACETAMINOPHEN 5/325MG TABLET PO PRN ×2 (20:21→21:29)
[2022-05-05 22:00] VITALS: BP 122/82
[2022-05-06] MEDS: FUROSEMIDE INJECTION 100 MG in D5W 5% 100 ML IV SCH ×3 (01:15→21:30)
[2022-05-06 05:00] VITALS: BP 112/68
[2022-05-06] MEDS: OXYCODONE W/ ACETAMINOPHEN 5/325MG TABLET PO PRN ×3 (05:01→21:51)
[2022-05-06] MEDS: INSULIN LANTUS (GLARGINE) 1 /0.01ml (100units/ml) SC SCH ×2 (06:05→21:55)
[2022-05-06] MEDS: InsuLIN REG 1unit/0.01ml Soln (100units/ml) SC SCH ×4 (06:06→21:55)
[2022-05-06] MEDS: ACCU-CHEK COMFORT CURVE STRIP VI SCH ×4 (06:11→22:00)
[2022-05-06] MEDS: ceFAZolin 2 GM in D5W 5% 100 ML IV SCH ×3 (06:11→21:52)
[2022-05-06 09:00] VITALS: BP 108/54
[2022-05-06] MEDS: VERQUVO 5 MG PO SCH ×2 (11:10→21:52)
[2022-05-06] MEDS: SPIRONOLACTONE 25 MG TAB PO SCH (11:10)
[2022-05-06] MEDS: DAPAGLIFLOZIN 5 MG TAB PO SCH (11:11)
[2022-05-06] MEDS: POTASSIUM CHL 20 Meq TABLET PO SCH ×2 (11:11→21:43)
[2022-05-06] MEDS: SACUBITRIL-VALSARTAN 24mg/26mg TAB PO SCH ×2 (11:11→21:43)
[2022-05-06] MEDS: PANTOPRAZOLE 40 MG TAB PO SCH (11:12)
[2022-05-06] MEDS: PREGABALIN 25 MG CAP PO SCH ×2 (11:12→21:43)
[2022-05-06] MEDS: hydrOXYchloroQUINE SULFATE 200 MG TAB PO SCH (11:12)
[2022-05-06 13:00] VITALS: BP 101/57
[2022-05-06 17:00] VITALS: BP 99/61
[2022-05-06 22:39] VITALS: BP 106/51
[2022-05-07] VITALS (7 sets, daily range): BP systolic 95–104; BP diastolic 42–70
[2022-05-07] MEDS: ceFAZolin 2 GM in D5W 5% 100 ML IV SCH ×3 (06:25→21:32)
[2022-05-07] MEDS: InsuLIN REG 1unit/0.01ml Soln (100units/ml) SC SCH ×4 (06:25→21:45)
[2022-05-07] MEDS: ACCU-CHEK COMFORT CURVE STRIP VI SCH ×4 (06:26→21:45)
[2022-05-07] MEDS: INSULIN LANTUS (GLARGINE) 1 /0.01ml (100units/ml) SC SCH ×2 (06:27→21:45)
[2022-05-07] MEDS: FUROSEMIDE INJECTION 100 MG in D5W 5% 100 ML IV SCH ×2 (10:56→17:42)
[2022-05-07] MEDS: DAPAGLIFLOZIN 5 MG TAB PO SCH (10:59)
[2022-05-07] MEDS: SPIRONOLACTONE 25 MG TAB PO SCH (11:01)
[2022-05-07] MEDS: SACUBITRIL-VALSARTAN 24mg/26mg TAB PO SCH ×2 (11:01→21:31)
[2022-05-07] MEDS: POTASSIUM CHL 20 Meq TABLET PO SCH ×2 (11:02→21:31)
[2022-05-07] MEDS: PANTOPRAZOLE 40 MG TAB PO SCH (11:03)
[2022-05-07] MEDS: hydrOXYchloroQUINE SULFATE 200 MG TAB PO SCH (11:03)
[2022-05-07] MEDS: PREGABALIN 25 MG CAP PO SCH ×2 (11:03→21:31)
[2022-05-07] MEDS: OXYCODONE W/ ACETAMINOPHEN 5/325MG TABLET PO PRN ×2 (11:04→19:18)
[2022-05-07] MEDS: VERQUVO 5 MG PO SCH ×2 (11:05→21:32)
[2022-05-07] MEDS: DOPamine 1600MCG/ML D5W 250 ML IV SCH (23:00)
[2022-05-08] VITALS (7 sets, daily range): BP systolic 91–116; BP diastolic 42–71
[2022-05-08] MEDS ORDERED: METOCLOPRAMIDE HCL 5MG/ml INJ 2ml VIAL IV PRN (01:00)
[2022-05-08] MEDS: OXYCODONE W/ ACETAMINOPHEN 5/325MG TABLET PO PRN ×3 (04:04→22:49)
[2022-05-08] MEDS: FUROSEMIDE INJECTION 100 MG in D5W 5% 100 ML IV SCH ×3 (04:04→22:50)
[2022-05-08] MEDS: ceFAZolin 2 GM in D5W 5% 100 ML IV SCH ×3 (05:49→21:58)
[2022-05-08] MEDS: InsuLIN REG 1unit/0.01ml Soln (100units/ml) SC SCH ×4 (05:50→22:00)
[2022-05-08] MEDS: INSULIN LANTUS (GLARGINE) 1 /0.01ml (100units/ml) SC SCH ×3 (05:50→22:48)
[2022-05-08] MEDS: ACCU-CHEK COMFORT CURVE STRIP VI SCH ×4 (05:51→22:00)
[2022-05-08] MEDS: SPIRONOLACTONE 25 MG TAB PO SCH (09:00)
[2022-05-08] MEDS: VERQUVO 5 MG PO SCH ×2 (09:01→22:02)
[2022-05-08] MEDS: SACUBITRIL-VALSARTAN 24mg/26mg TAB PO SCH ×2 (09:02→22:02)
[2022-05-08] MEDS: DAPAGLIFLOZIN 5 MG TAB PO SCH (09:02)
[2022-05-08] MEDS: PREGABALIN 25 MG CAP PO SCH ×2 (09:03→22:02)
[2022-05-08] MEDS: POTASSIUM CHL 20 Meq TABLET PO SCH ×2 (09:03→22:02)
[2022-05-08] MEDS: hydrOXYchloroQUINE SULFATE 200 MG TAB PO SCH (09:05)
[2022-05-08] MEDS: PANTOPRAZOLE 40 MG TAB PO SCH (09:05)
[2022-05-08 14:51] LABS: Basophils # (auto) 0.1 10 ^3/uL (0-0.2); Basophils % (auto) 0.5 % (0.0-2.0); Eosinophils # (auto) 0.2 10 ^3/uL (0-0.8); Eosinophils % (auto) 1.9 % (0.0-7.0); Hematocrit 48.6 % (41.0-53.0); Hemoglobin 15.5 g/dL (13.5-17.5); Lymphocytes # (auto) 0.7 10 ^3/uL (0.4-5.4); Lymphocytes % (auto) 5.6 % (10.0-50.0); Mean Corpuscular Hemoglobin 27.7 pg (28.0-32.0); Mean Corpuscular Hgb Conc. 31.9 g/dL (32.0-36.0); Mean Corpuscular Volume 86.8 fL (80.0-100.0); Monocytes # (auto) 1.6 10 ^3/uL (0-1.3); Monocytes % (auto) 13.3 % (0.0-12.0); Neutrophils # (auto) 9.2 10 ^3/uL (1.6-8.6); Neutrophils % (auto) 78.7 % (37.0-80.0); Red Cell Distribution Width 16.2 % (11.8-14.3); White Blood Cell 11.7 10^3/uL (4.4-10.8)
[2022-05-08 15:10] LABS: BUN/Creatinine Ratio 22.1; Calcium 8.7 mg/dL (8.5-10.1); Potassium 5.1 mmol/L (3.5-5.1)
[2022-05-08] MEDS: DOPamine 1600MCG/ML D5W 250 ML IV SCH (21:58)
[2022-05-09 05:00] VITALS: BP 121/76
[2022-05-09] MEDS: ceFAZolin 2 GM in D5W 5% 100 ML IV SCH ×3 (05:39→22:05)
[2022-05-09] MEDS: OXYCODONE W/ ACETAMINOPHEN 5/325MG TABLET PO PRN ×3 (05:40→21:40)
[2022-05-09] MEDS: InsuLIN REG 1unit/0.01ml Soln (100units/ml) SC SCH ×4 (05:42→22:07)
[2022-05-09] MEDS: INSULIN LANTUS (GLARGINE) 1 /0.01ml (100units/ml) SC SCH ×2 (05:43→22:07)
[2022-05-09] MEDS: ACCU-CHEK COMFORT CURVE STRIP VI SCH ×4 (05:44→22:08)
[2022-05-09 08:47] VITALS: BP 107/69
[2022-05-09] MEDS: hydrOXYchloroQUINE SULFATE 200 MG TAB PO SCH (10:34)
[2022-05-09] MEDS: PANTOPRAZOLE 40 MG TAB PO SCH (10:34)
[2022-05-09] MEDS: DAPAGLIFLOZIN 5 MG TAB PO SCH (10:34)
[2022-05-09] MEDS: PREGABALIN 25 MG CAP PO SCH ×2 (10:34→22:06)
[2022-05-09] MEDS: SPIRONOLACTONE 25 MG TAB PO SCH (10:34)
[2022-05-09] MEDS: POTASSIUM CHL 20 Meq TABLET PO SCH ×2 (10:34→22:06)
[2022-05-09] MEDS: VERQUVO 5 MG PO SCH ×2 (10:35→22:00)
[2022-05-09] MEDS: SACUBITRIL-VALSARTAN 24mg/26mg TAB PO SCH ×2 (11:58→22:05)
[2022-05-09] MEDS: FUROSEMIDE INJECTION 100 MG in D5W 5% 100 ML IV SCH ×2 (12:06→21:17)
[2022-05-09 12:42] VITALS: BP 113/75
[2022-05-09] MEDS ORDERED: ARTIFICIAL TEARS 15ml EACHEYE PRN (16:15)
[2022-05-09 16:49] VITALS: BP 112/78
[2022-05-09] MEDS: DOPamine 1600MCG/ML D5W 250 ML IV SCH (21:18)
[2022-05-09 22:00] VITALS: BP 125/77
[2022-05-10 05:00] VITALS: BP 103/57
[2022-05-10] MEDS: FUROSEMIDE INJECTION 100 MG in D5W 5% 100 ML IV SCH ×2 (05:07→16:42)
[2022-05-10] MEDS: ceFAZolin 2 GM in D5W 5% 100 ML IV SCH ×2 (06:08→14:00)
[2022-05-10] MEDS: INSULIN LANTUS (GLARGINE) 1 /0.01ml (100units/ml) SC SCH ×2 (06:10→22:07)
[2022-05-10] MEDS: InsuLIN REG 1unit/0.01ml Soln (100units/ml) SC SCH ×4 (06:10→22:00)
[2022-05-10] MEDS: ACCU-CHEK COMFORT CURVE STRIP VI SCH ×4 (06:10→22:04)
[2022-05-10] MEDS: OXYCODONE W/ ACETAMINOPHEN 5/325MG TABLET PO PRN ×3 (06:15→19:38)
[2022-05-10 06:39] LABS: Anion Gap 12 (5-15); BUN/Creatinine Ratio 27.6; Blood Urea Nitrogen 51 mg/dL (7-18); Calcium 8.3 mg/dL (8.5-10.1); Carbon Dioxide 28 mmol/L (21-32); Chloride 95 mmol/L (98-107); GFR African American 47 mL/min; GFR Non-African American 39 mL/min; Glucose 166 mg/dL (74-106); Potassium 4.4 mmol/L (3.5-5.1); Sodium 135 mmol/L (136-145)
[2022-05-10 09:00] VITALS: BP 105/54
[2022-05-10] MEDS: SACUBITRIL-VALSARTAN 24mg/26mg TAB PO SCH ×2 (09:35→21:46)
[2022-05-10] MEDS: POTASSIUM CHL 20 Meq TABLET PO SCH ×2 (09:35→21:46)
[2022-05-10] MEDS: hydrOXYchloroQUINE SULFATE 200 MG TAB PO SCH (09:36)
[2022-05-10] MEDS: SPIRONOLACTONE 25 MG TAB PO SCH (09:36)
[2022-05-10] MEDS: PREGABALIN 25 MG CAP PO SCH ×2 (09:36→21:46)
[2022-05-10] MEDS: PANTOPRAZOLE 40 MG TAB PO SCH (09:36)
[2022-05-10] MEDS: DAPAGLIFLOZIN 5 MG TAB PO SCH (09:36)
[2022-05-10] MEDS: VERQUVO 5 MG PO SCH ×2 (10:00→21:54)
[2022-05-10 13:00] VITALS: BP 97/58
[2022-05-10 17:00] VITALS: BP 107/75
[2022-05-10] MEDS: DOPamine 1600MCG/ML D5W 250 ML IV SCH (21:54)
[2022-05-10 22:00] VITALS: BP 118/65
[2022-05-11] MEDS: OXYCODONE W/ ACETAMINOPHEN 5/325MG TABLET PO PRN ×4 (02:06→23:58)
[2022-05-11 05:00] VITALS: BP 112/75
[2022-05-11] MEDS: InsuLIN REG 1unit/0.01ml Soln (100units/ml) SC SCH ×4 (05:44→22:14)
[2022-05-11] MEDS: INSULIN LANTUS (GLARGINE) 1 /0.01ml (100units/ml) SC SCH ×2 (05:45→22:14)
[2022-05-11] MEDS: ACCU-CHEK COMFORT CURVE STRIP VI SCH ×4 (05:45→22:14)
[2022-05-11 09:39] VITALS: BP 89/50
[2022-05-11] MEDS: VERQUVO 5 MG PO SCH ×2 (10:00→22:00)
[2022-05-11] MEDS: DAPAGLIFLOZIN 5 MG TAB PO SCH (10:04)
[2022-05-11] MEDS: PANTOPRAZOLE 40 MG TAB PO SCH (10:05)
[2022-05-11] MEDS: levoFLOXacin 500 MG TAB PO SCH (10:05)
[2022-05-11] MEDS: PREGABALIN 25 MG CAP PO SCH ×2 (10:05→22:05)
[2022-05-11] MEDS: SPIRONOLACTONE 25 MG TAB PO SCH (10:05)
[2022-05-11] MEDS: hydrOXYchloroQUINE SULFATE 200 MG TAB PO SCH (10:07)
[2022-05-11] MEDS: POTASSIUM CHL 20 Meq TABLET PO SCH ×2 (10:08→22:05)
[2022-05-11] MEDS: SACUBITRIL-VALSARTAN 24mg/26mg TAB PO SCH ×2 (10:08→22:05)
[2022-05-11 12:08] LABS: INR 1.13 (0.9-1.15)
[2022-05-11 12:10] LABS: BUN/Creatinine Ratio 29.7; Potassium 4.3 mmol/L (3.5-5.1)
[2022-05-11 12:43] VITALS: BP 105/66
[2022-05-11 17:16] VITALS: BP 101/38
[2022-05-11] MEDS ORDERED: LIDOCAINE 1% (LOCAL ANESTH.) PF 5ml SDV ID ONE (18:45)
[2022-05-11] MEDS: DOPamine 1600MCG/ML D5W 250 ML IV SCH (21:51)
[2022-05-11] MEDS: FUROSEMIDE INJECTION 100 MG in SODIUM CHL 0.9% 100 ML IV SCH (21:52)
[2022-05-11 22:00] VITALS: BP 97/59
[2022-05-11] MEDS: SODIUM CHLOR 0.9% PF (SALINE LOCK) 10ML VIAL/SYR IV SCH (22:06)
[2022-05-12] VITALS (11 sets, daily range): BP systolic 89–117; BP diastolic 52–77
[2022-05-12] MEDS: FUROSEMIDE INJECTION 100 MG in SODIUM CHL 0.9% 100 ML IV SCH ×2 (06:00→20:02)
[2022-05-12] MEDS: InsuLIN REG 1unit/0.01ml Soln (100units/ml) SC SCH ×4 (06:01→22:34)
[2022-05-12] MEDS: INSULIN LANTUS (GLARGINE) 1 /0.01ml (100units/ml) SC SCH ×2 (06:02→22:33)
[2022-05-12] MEDS: ACCU-CHEK COMFORT CURVE STRIP VI SCH ×4 (06:14→21:51)
[2022-05-12] MEDS: OXYCODONE W/ ACETAMINOPHEN 5/325MG TABLET PO PRN ×2 (06:48→19:59)
[2022-05-12] MEDS: SODIUM CHLOR 0.9% PF (SALINE LOCK) 10ML VIAL/SYR IV SCH ×2 (09:56→21:51)
[2022-05-12] MEDS: VERQUVO 5 MG PO SCH ×2 (09:56→21:46)
[2022-05-12] MEDS: SPIRONOLACTONE 25 MG TAB PO SCH (09:56)
[2022-05-12] MEDS: DAPAGLIFLOZIN 5 MG TAB PO SCH (09:57)
[2022-05-12] MEDS: levoFLOXacin 500 MG TAB PO SCH (09:57)
[2022-05-12] MEDS: POTASSIUM CHL 20 Meq TABLET PO SCH ×2 (09:57→21:42)
[2022-05-12] MEDS: SACUBITRIL-VALSARTAN 24mg/26mg TAB PO SCH ×2 (09:57→21:51)
[2022-05-12] MEDS: hydrOXYchloroQUINE SULFATE 200 MG TAB PO SCH (09:58)
[2022-05-12] MEDS: PANTOPRAZOLE 40 MG TAB PO SCH (09:58)
[2022-05-12] MEDS: PREGABALIN 25 MG CAP PO SCH ×2 (09:58→21:41)
[2022-05-12] MEDS ORDERED: IOHEXOL 350 MG/ML 100ML IJ ONE (13:43)
[2022-05-12] MEDS ORDERED: LIDOCAINE 2%HCL (LOCAL ANESTH.) INJ 20ML MDV ONE (13:44)
[2022-05-12] MEDS ORDERED: SODIUM CHL 0.9% 50 ML ONE (14:04)
[2022-05-12] MEDS ORDERED: ANGIOMAX 250 MG VIAL IV ONE (14:04)
[2022-05-12] MEDS ORDERED: MIDAZOLAM HCL 2MG/2ML 2ml VIAL (1mg/ml) ONE (14:04)
[2022-05-12] MEDS ORDERED: fentaNYL CITRATE 100 MCG/2 ML VL ONE (14:04)
[2022-05-12] MEDS ORDERED: DOPamine 1600MCG/ML D5W 250 ML IV ONE (14:32)
[2022-05-13] VITALS (7 sets, daily range): BP systolic 111–132; BP diastolic 65–73
[2022-05-13] MEDS: OXYCODONE W/ ACETAMINOPHEN 5/325MG TABLET PO PRN ×3 (02:15→18:37)
[2022-05-13] MEDS: ACCU-CHEK COMFORT CURVE STRIP VI SCH ×4 (05:52→22:06)
[2022-05-13] MEDS: FUROSEMIDE INJECTION 100 MG in SODIUM CHL 0.9% 100 ML IV SCH ×3 (05:52→16:47)
[2022-05-13] MEDS: InsuLIN REG 1unit/0.01ml Soln (100units/ml) SC SCH ×4 (06:05→22:38)
[2022-05-13] MEDS: INSULIN LANTUS (GLARGINE) 1 /0.01ml (100units/ml) SC SCH ×2 (06:10→22:39)
[2022-05-13] MEDS: DOPamine 1600MCG/ML D5W 250 ML IV SCH (06:29)
[2022-05-13] MEDS: SODIUM CHLOR 0.9% PF (SALINE LOCK) 10ML VIAL/SYR IV SCH ×2 (09:51→22:04)
[2022-05-13] MEDS: DAPAGLIFLOZIN 5 MG TAB PO SCH (09:52)
[2022-05-13] MEDS: SACUBITRIL-VALSARTAN 24mg/26mg TAB PO SCH ×2 (09:52→22:05)
[2022-05-13] MEDS: VERQUVO 5 MG PO SCH ×2 (09:52→22:00)
[2022-05-13] MEDS: SPIRONOLACTONE 25 MG TAB PO SCH (09:52)
[2022-05-13] MEDS: hydrOXYchloroQUINE SULFATE 200 MG TAB PO SCH (09:53)
[2022-05-13] MEDS: PREGABALIN 25 MG CAP PO SCH ×2 (09:53→22:06)
[2022-05-13] MEDS: levoFLOXacin 500 MG TAB PO SCH (09:53)
[2022-05-13] MEDS: PANTOPRAZOLE 40 MG TAB PO SCH (09:53)
[2022-05-13] MEDS: POTASSIUM CHL 20 Meq TABLET PO SCH ×2 (09:53→22:06)
[2022-05-13] MEDS ORDERED: DOCUSATE SOD 100 MG CAP PO ONE (16:15)
[2022-05-13] MEDS: DOCUSATE SOD 100 MG CAP PO SCH (22:05)
[2022-05-13] MEDS: SENNA 8.6 MG TAB PO SCH (22:06)
[2022-05-13 23:30] LABS: Basophils # (auto) 0.1 10 ^3/uL (0-0.2); Basophils % (auto) 0.8 % (0.0-2.0); Eosinophils # (auto) 0.2 10 ^3/uL (0-0.8); Hematocrit 49.2 % (41.0-53.0); Hemoglobin 16.1 g/dL (13.5-17.5); Lymphocytes # (auto) 1.1 10 ^3/uL (0.4-5.4); Mean Corpuscular Hemoglobin 28.4 pg (28.0-32.0); Mean Corpuscular Hgb Conc. 32.6 g/dL (32.0-36.0); Mean Corpuscular Volume 86.9 fL (80.0-100.0); Monocytes # (auto) 1.5 10 ^3/uL (0-1.3); Monocytes % (auto) 13.4 % (0.0-12.0); Neutrophils % (auto) 73.8 % (37.0-80.0); Nucleated Red Blood Cells % 0.1 %; Red Blood Cells 5.66 10^6/uL (4.5-5.90); Red Cell Distribution Width 16.2 % (11.8-14.3); White Blood Cell 10.9 10^3/uL (4.4-10.8)
[2022-05-13 23:34] LABS: Potassium 4.4 mmol/L (3.5-5.1)
[2022-05-13 23:35] LABS: BUN/Creatinine Ratio 28.8; Calcium 8.6 mg/dL (8.5-10.1)
[2022-05-14] MEDS: OXYCODONE W/ ACETAMINOPHEN 5/325MG TABLET PO PRN ×3 (01:19→15:11)
[2022-05-14] MEDS: FUROSEMIDE INJECTION 100 MG in SODIUM CHL 0.9% 100 ML IV SCH ×2 (03:38→15:53)
[2022-05-14 04:58] VITALS: BP 100/65
[2022-05-14] MEDS: ACCU-CHEK COMFORT CURVE STRIP VI SCH ×4 (06:06→22:23)
[2022-05-14] MEDS: InsuLIN REG 1unit/0.01ml Soln (100units/ml) SC SCH ×4 (06:13→22:21)
[2022-05-14] MEDS: INSULIN LANTUS (GLARGINE) 1 /0.01ml (100units/ml) SC SCH ×2 (06:14→22:24)
[2022-05-14] MEDS: DOPamine 1600MCG/ML D5W 250 ML IV SCH ×2 (06:24→20:30)
[2022-05-14 08:00] VITALS: BP 111/72
[2022-05-14 09:25] VITALS: BP 116/76
[2022-05-14] MEDS: SODIUM CHLOR 0.9% PF (SALINE LOCK) 10ML VIAL/SYR IV SCH ×2 (09:39→22:13)
[2022-05-14] MEDS: VERQUVO 5 MG PO SCH ×2 (09:39→22:00)
[2022-05-14] MEDS: SPIRONOLACTONE 25 MG TAB PO SCH (09:40)
[2022-05-14] MEDS: DAPAGLIFLOZIN 5 MG TAB PO SCH (09:40)
[2022-05-14] MEDS: SACUBITRIL-VALSARTAN 24mg/26mg TAB PO SCH ×2 (09:40→22:24)
[2022-05-14] MEDS: POTASSIUM CHL 20 Meq TABLET PO SCH ×2 (09:40→22:22)
[2022-05-14] MEDS: DOCUSATE SOD 100 MG CAP PO SCH ×2 (09:40→22:22)
[2022-05-14] MEDS: PREGABALIN 25 MG CAP PO SCH ×2 (09:41→22:21)
[2022-05-14] MEDS: PANTOPRAZOLE 40 MG TAB PO SCH (09:41)
[2022-05-14] MEDS: hydrOXYchloroQUINE SULFATE 200 MG TAB PO SCH (09:41)
[2022-05-14] MEDS: levoFLOXacin 500 MG TAB PO SCH (09:41)
[2022-05-14 12:07] VITALS: BP 91/53
[2022-05-14 17:29] VITALS: BP 102/69
[2022-05-14 21:53] VITALS: BP 106/71
[2022-05-14] MEDS: SENNA 8.6 MG TAB PO SCH (22:22)
[2022-05-15] MEDS: FUROSEMIDE INJECTION 100 MG in SODIUM CHL 0.9% 100 ML IV SCH ×2 (02:37→09:30)
[2022-05-15] MEDS: OXYCODONE W/ ACETAMINOPHEN 5/325MG TABLET PO PRN ×2 (02:42→09:31)
[2022-05-15 04:58] VITALS: BP 109/55
[2022-05-15] MEDS: ACCU-CHEK COMFORT CURVE STRIP VI SCH ×3 (05:56→17:49)
[2022-05-15] MEDS: InsuLIN REG 1unit/0.01ml Soln (100units/ml) SC SCH ×3 (06:00→17:50)
[2022-05-15] MEDS: INSULIN LANTUS (GLARGINE) 1 /0.01ml (100units/ml) SC SCH (06:01)
[2022-05-15 06:58] LABS: Basophils # (auto) 0.1 10 ^3/uL (0-0.2); Basophils % (auto) 0.6 % (0.0-2.0); Eosinophils # (auto) 0.3 10 ^3/uL (0-0.8); Eosinophils % (auto) 2.8 % (0.0-7.0); Hematocrit 48.3 % (41.0-53.0); Hemoglobin 16.3 g/dL (13.5-17.5); Lymphocytes # (auto) 1.2 10 ^3/uL (0.4-5.4); Lymphocytes % (auto) 12.8 % (10.0-50.0); Mean Corpuscular Hemoglobin 29.3 pg (28.0-32.0); Mean Corpuscular Hgb Conc. 33.8 g/dL (32.0-36.0); Mean Corpuscular Volume 86.8 fL (80.0-100.0); Monocytes # (auto) 1.3 10 ^3/uL (0-1.3); Monocytes % (auto) 13.7 % (0.0-12.0); Neutrophils # (auto) 6.6 10 ^3/uL (1.6-8.6); Neutrophils % (auto) 70.1 % (37.0-80.0); Nucleated Red Blood Cells % 0.1 %; Red Blood Cells 5.56 10^6/uL (4.5-5.90); Red Cell Distribution Width 16.1 % (11.8-14.3); White Blood Cell 9.4 10^3/uL (4.4-10.8)
[2022-05-15 07:08] LABS: Calcium 8.3 mg/dL (8.5-10.1); Potassium 4.4 mmol/L (3.5-5.1)
[2022-05-15 08:00] VITALS: BP 98/64
[2022-05-15 09:00] VITALS: BP 98/64
[2022-05-15] MEDS: SPIRONOLACTONE 25 MG TAB PO SCH (09:23)
[2022-05-15] MEDS: SODIUM CHLOR 0.9% PF (SALINE LOCK) 10ML VIAL/SYR IV SCH (09:23)
[2022-05-15] MEDS: DOCUSATE SOD 100 MG CAP PO SCH (09:23)
[2022-05-15] MEDS: SACUBITRIL-VALSARTAN 24mg/26mg TAB PO SCH (09:24)
[2022-05-15] MEDS: DAPAGLIFLOZIN 5 MG TAB PO SCH (09:24)
[2022-05-15] MEDS: POTASSIUM CHL 20 Meq TABLET PO SCH (09:25)
[2022-05-15] MEDS: levoFLOXacin 500 MG TAB PO SCH (09:25)
[2022-05-15] MEDS: hydrOXYchloroQUINE SULFATE 200 MG TAB PO SCH (09:25)
[2022-05-15] MEDS: PREGABALIN 25 MG CAP PO SCH (09:25)
[2022-05-15] MEDS: PANTOPRAZOLE 40 MG TAB PO SCH (09:26)
[2022-05-15] MEDS: DOPamine 1600MCG/ML D5W 250 ML IV SCH (09:42)
[2022-05-15] MEDS: VERQUVO 5 MG PO SCH (09:42)
[2022-05-15 13:00] VITALS: BP 95/62
[2022-05-15 17:24] VITALS: BP 90/67
[2022-05-15 18:46] VITALS: BP 94/68
== END 2022-05-15 19:30 | disposition home health service (06) | DRG 286 ==
LOC: CENTRAL 16:05 → TELE-CENTR 16:27
PROVIDERS: ADMIT Internal Medicine Cardiovascular Disease; ATTEND Internal Medicine Cardiovascular Disease
PROC: 02HV33Z Insertion of Infusion Device into Superior Vena Cava, Percutaneous Approach (ICD-10-PCS; 2022-05-11)
PROC: B548ZZA Ultrasonography of Superior Vena Cava, Guidance (ICD-10-PCS; 2022-05-11)
PROC: B2111ZZ Fluoroscopy of Multiple Coronary Arteries using Low Osmolar Contrast (ICD-10-PCS; principal; 2022-05-12)
PROC: B41G1ZZ Fluoroscopy of Left Lower Extremity Arteries using Low Osmolar Contrast (ICD-10-PCS; 2022-05-12)
PROC: B41F1ZZ Fluoroscopy of Right Lower Extremity Arteries using Low Osmolar Contrast (ICD-10-PCS; 2022-05-12)
PROC: B4101ZZ Fluoroscopy of Abdominal Aorta using Low Osmolar Contrast (ICD-10-PCS; 2022-05-12)
PROC: B2131ZZ Fluoroscopy of Multiple Coronary Artery Bypass Grafts using Low Osmolar Contrast (ICD-10-PCS; 2022-05-12)
PROC: B2181ZZ Fluoroscopy of Left Internal Mammary Bypass Graft using Low Osmolar Contrast (ICD-10-PCS; 2022-05-12)
DX: I11.0 Hypertensive heart disease with heart failure (principal); I50.23 Acute on chronic systolic (congestive) heart failure; I47.2 Ventricular tachycardia; E87.1 Hypo-osmolality and hyponatremia; E87.2 Acidosis; E11.9 Type 2 diabetes mellitus without complications; E78.5 Hyperlipidemia, unspecified; I25.5 Ischemic cardiomyopathy; J44.9 Chronic obstructive pulmonary disease, unspecified; N28.9 Disorder of kidney and ureter, unspecified; D72.829 Elevated white blood cell count, unspecified; R94.4 Abnormal results of kidney function studies; I25.10 Atherosclerotic heart disease of native coronary artery without angina pectoris; Z82.49 Family history of ischemic heart disease and other diseases of the circulatory system; Z83.3 Family history of diabetes mellitus; Z86.16 Personal history of COVID-19; Z87.01 Personal history of pneumonia (recurrent); Z91.19 Patient's noncompliance with other medical treatment and regimen; Z95.1 Presence of aortocoronary bypass graft; Z95.2 Presence of prosthetic heart valve; Z95.5 Presence of coronary angioplasty implant and graft
CPT/HCPCS: 36415; 36569; 71045; 75625; 75716; 80048; 80053; 82962; 83735; 83880; 85025; 85610; 85730; 93455; 93925; 99152; C1887; G0378; J0690; J1815; J2250; J7060; P9047

== ENCOUNTER → 2022-05-02 | Outpatient (CLI) | payer MEDICARE ==
[2022-05-02] VITALS (13 sets, daily range): BP systolic 116–150; BP diastolic 71–94
[~2022-05-02] MED LIST changes: +ACCU-CHEK COMFORT CURVE STRIP VI SCH; +DAPAGLIFLOZIN 5 MG TAB PO SCH; +DEXTROSE (50%) 50ML SYRG IV PRN; -FUROSEMIDE 100 MG/10ML VIAL IV ONE; -FUROSEMIDE 20 MG/2 ML VIAL ONE; -FUROSEMIDE INJECTION 10 ML ONE; +FUROSEMIDE INJECTION 100 MG in SODIUM CHL 0.9% 100 ML IV SCH; +InsuLIN REG 1unit/0.01ml Soln (100units/ml) SC SCH; +MILRINONE 20MG/100ML 100 ML IV SCH; +MORPHINE SULFATE INJ 2 MG/ml SYRG IV PRN; +NITROGLYCERIN 0.4 MG SL TAB SL PRN; +PANTOPRAZOLE 40 MG TAB PO SCH; +POTASSIUM CHL 20 Meq TABLET PO SCH; +PREGABALIN 25 MG CAP PO SCH; +SACUBITRIL-VALSARTAN 24mg/26mg TAB PO SCH; +SPIRONOLACTONE 25 MG TAB PO SCH; +hydrOXYchloroQUINE SULFATE 200 MG TAB PO SCH; -metOLazone 5 MG TAB ONE; -metOLazone 5 MG TAB PO ONE
[2022-05-02 09:51] LABS: Albumin 3.7 g/dL (3.4-5.0); Calcium 8.9 mg/dL (8.5-10.1); Magnesium 2.6 mg/dL (1.6-2.6); Potassium 3.4 mmol/L (3.5-5.1)
[2022-05-02 09:54] LABS: Basophils # (auto) 0 10 ^3/uL (0-0.2); Basophils % (auto) 0.3 % (0.0-2.0); Eosinophils # (auto) 0.1 10 ^3/uL (0-0.8); Eosinophils % (auto) 0.6 % (0.0-7.0); Nucleated Red Blood Cells % 0.1 %
[2022-05-02 09:55] LABS: BUN/Creatinine Ratio 34.9; Bilirubin, Total 1.7 mg/dL (0.2-1.0); Total Protein 6.9 g/dL (6.4-8.2)
[2022-05-02 09:56] LABS: Hematocrit 52.3 % (41.0-53.0); Hemoglobin 16.7 g/dL (13.5-17.5); Lymphocytes % (auto) 7.2 % (10.0-50.0); Mean Corpuscular Hemoglobin 27.9 pg (28.0-32.0); Mean Corpuscular Hgb Conc. 31.9 g/dL (32.0-36.0); Mean Corpuscular Volume 87.5 fL (80.0-100.0); Monocytes % (auto) 14.3 % (0.0-12.0); Neutrophils % (auto) 77.6 % (37.0-80.0); Red Blood Cells 5.98 10^6/uL (4.5-5.90); Red Cell Distribution Width 16.2 % (11.8-14.3); White Blood Cell 14.2 10^3/uL (4.4-10.8)
== END | disposition home or self-care (01) ==
LOC: CHF HDHVI 08:27 → TELE 17:25 → UNDOADMIN 17:25
PROVIDERS: ATTEND Internal Medicine Cardiovascular Disease
DX: I50.23 Acute on chronic systolic (congestive) heart failure (principal)
CPT/HCPCS: 36415; 80053; 83735; 83880; 85025; J2260

== ENCOUNTER → 2022-05-17 | Outpatient (CLI) | payer MEDICARE ==
[~2022-05-17] MED LIST changes: +ALLO300T2 PO; +AMIO200T4 PO; +INS7030I SC; +INSUINJ37 SC; +LEVO100T8 PO; +OXYC1CAP PO; +POTA-180 PO; +POTA-220 PO
[2022-05-17 14:33] VITALS: BP 97/63
== END | disposition home or self-care (01) ==
LOC: CHF HDHVI 14:21
PROVIDERS: ATTEND Internal Medicine Cardiovascular Disease
DX: I50.43 Acute on chronic combined systolic (congestive) and diastolic (congestive) heart failure (principal); I48.91 Unspecified atrial fibrillation; I25.5 Ischemic cardiomyopathy
CPT/HCPCS: G0463; J1642

== ENCOUNTER → 2022-05-22 | Outpatient (CLI) | payer MEDICARE ==
[2022-05-22] VITALS (12 sets, daily range): BP systolic 127–155; BP diastolic 57–92
[~2022-05-22] MED LIST changes: +ALUM & MAG HYDROX-SIMETH LIQ(MAALOX) 30 ML ONE; +ALUM & MAG HYDROX-SIMETH LIQ(MAALOX) 30 ML PO ONE; -AMIO400T3 PO; -BACI-5 EX; +DOPamine 1600MCG/ML D5W 250 ML IV ONE; -FLU220IH INH; -FURO1TAB33 PO; +FUROSEMIDE 100 MG/10ML VIAL IV ONE; +FUROSEMIDE 20 MG/2 ML VIAL ONE; +FUROSEMIDE INJECTION 10 ML ONE; -INSUINJ37 SC; -ISOS60TA24 PO; +MILRINONE 20MG/100ML 100 ML IV ONE; -NITR0.4S29 SL; +ONDANSETRON HCL 4 MG/2 ML VIAL IV ONE; +ONDANSETRON HCL 4 MG/2 ML VIAL ONE; -OXYC30TA77 PO; -PANT40TA2 PO; -POTA-220 PO; -POTA10TA51 PO; +POTASSIUM CHL 20 Meq TABLET PO ONE; +POTASSIUM EFFERVESENT TAB 25 MEQ ONE; +POTASSIUM EFFERVESENT TAB 25 MEQ PO ONE; -PREG50CA PO; -RIVA10TA PO
[2022-05-22 14:29] LABS: Basophils # (auto) 0 10 ^3/uL (0-0.2); Basophils % (auto) 0.4 % (0.0-2.0); Eosinophils # (auto) 0.1 10 ^3/uL (0-0.8); Eosinophils % (auto) 0.8 % (0.0-7.0); Hematocrit 46.4 % (41.0-53.0); Hemoglobin 14.8 g/dL (13.5-17.5); Lymphocytes % (auto) 10.4 % (10.0-50.0); Mean Corpuscular Hemoglobin 28.1 pg (28.0-32.0); Mean Corpuscular Hgb Conc. 31.9 g/dL (32.0-36.0); Monocytes % (auto) 10.1 % (0.0-12.0); Neutrophils # (auto) 7.7 10 ^3/uL (1.6-8.6); Neutrophils % (auto) 78.3 % (37.0-80.0); Nucleated Red Blood Cells % 0.1 %; Red Blood Cells 5.27 10^6/uL (4.5-5.90); Red Cell Distribution Width 16.1 % (11.8-14.3); White Blood Cell 9.8 10^3/uL (4.4-10.8)
[2022-05-22 14:35] LABS: Albumin 3.6 g/dL (3.4-5.0); Calcium 9.1 mg/dL (8.5-10.1); Magnesium 2.8 mg/dL (1.6-2.6); Potassium 5.2 mmol/L (3.5-5.1)
[2022-05-22 14:41] LABS: Total Protein 7.4 g/dL (6.4-8.2)
== END | disposition home or self-care (01) ==
LOC: CHF HDHVI 11:37
PROVIDERS: ATTEND Internal Medicine Cardiovascular Disease
DX: I11.0 Hypertensive heart disease with heart failure (principal); I50.23 Acute on chronic systolic (congestive) heart failure; I48.91 Unspecified atrial fibrillation; I25.5 Ischemic cardiomyopathy; I25.10 Atherosclerotic heart disease of native coronary artery without angina pectoris; J44.9 Chronic obstructive pulmonary disease, unspecified; E78.5 Hyperlipidemia, unspecified; E11.9 Type 2 diabetes mellitus without complications; I25.2 Old myocardial infarction; Z95.1 Presence of aortocoronary bypass graft; Z86.16 Personal history of COVID-19; Z79.899 Other long term (current) drug therapy; Z86.73 Personal history of transient ischemic attack (TIA), and cerebral infarction without residual deficits; Z95.810 Presence of automatic (implantable) cardiac defibrillator
CPT/HCPCS: 36415; 80053; 83735; 83880; 85025; 96365; 96366; 96367; 96375; 96376; G0463; J1265; J1642; J1940; J2260; J2405

== ENCOUNTER 2022-05-31 07:46 | Inpatient (IN) | payer MEDICARE ==
[~2022-05-31] VITALS: Ht 182.9 cm; Wt 106.0 kg
[~2022-05-31 07:46] MED LIST changes: -ALUM & MAG HYDROX-SIMETH LIQ(MAALOX) 30 ML ONE; -ALUM & MAG HYDROX-SIMETH LIQ(MAALOX) 30 ML PO ONE; -DOPamine 1600MCG/ML D5W 250 ML IV ONE; -FUROSEMIDE 100 MG/10ML VIAL IV ONE; -FUROSEMIDE 20 MG/2 ML VIAL ONE; -FUROSEMIDE INJECTION 10 ML ONE; -MILRINONE 20MG/100ML 100 ML IV ONE; -ONDANSETRON HCL 4 MG/2 ML VIAL IV ONE; -ONDANSETRON HCL 4 MG/2 ML VIAL ONE; -POTASSIUM CHL 20 Meq TABLET PO ONE; -POTASSIUM EFFERVESENT TAB 25 MEQ ONE; -POTASSIUM EFFERVESENT TAB 25 MEQ PO ONE
[2022-05-31] MEDS ORDERED: SODIUM CHLORIDE 0.9% 1,000 ML IV ONE (08:45)
[2022-05-31] MEDS: SODIUM CHLORIDE 0.9% 500 ML IV ONE ×2 (08:45→10:20)
[2022-05-31] MEDS ORDERED: SODIUM CHLORIDE 0.9% 500 ML IVB ONE (08:45)
[2022-05-31 08:58] LABS: Basophils # (auto) 0.1 10 ^3/uL (0-0.2); Basophils % (auto) 0.8 % (0.0-2.0); Eosinophils # (auto) 0.1 10 ^3/uL (0-0.8); Eosinophils % (auto) 1.3 % (0.0-7.0); Hematocrit 42.6 % (41.0-53.0); Mean Corpuscular Hemoglobin 28.9 pg (28.0-32.0); Mean Corpuscular Hgb Conc. 32.9 g/dL (32.0-36.0); Mean Corpuscular Volume 87.8 fL (80.0-100.0); Monocytes # (auto) 1.2 10 ^3/uL (0-1.3); Monocytes % (auto) 11.8 % (0.0-12.0); Neutrophils # (auto) 7.8 10 ^3/uL (1.6-8.6); Neutrophils % (auto) 76.1 % (37.0-80.0); Nucleated Red Blood Cells % 0.1 %; Red Blood Cells 4.85 10^6/uL (4.5-5.90); Red Cell Distribution Width 16.7 % (11.8-14.3); White Blood Cell 10.3 10^3/uL (4.4-10.8)
[2022-05-31 09:14] LABS: Albumin 3.3 g/dL (3.4-5.0); Calcium 8.3 mg/dL (8.5-10.1); Magnesium 2.2 mg/dL (1.6-2.6); Potassium 3.7 mmol/L (3.5-5.1)
[2022-05-31 09:27] LABS: BUN/Creatinine Ratio 29.5; Bilirubin, Total 0.9 mg/dL (0.2-1.0); Total Protein 6.4 g/dL (6.4-8.2)
[2022-05-31] MEDS: PROMETHAZINE HCL 25 MG/ML 1ML IV PRN ×2 (09:32→17:23)
[2022-05-31] MEDS ORDERED: NOREPINEPHRINE 8 MG/250ML KIT 250 ML IV ONE (12:13)
[2022-05-31] MEDS ORDERED: NOREPINEPHRINE 8 MG/250ML KIT 250 ML IV SCH (12:15)
[2022-05-31 15:45] LABS: Urine Bacteria FEW /hpf (None Seen); Urine Blood TRACE /uL (Negative); Urine Hyaline Cast FEW /lpf (0 - 2); Urine Mucus FEW (None Seen); Urine Specific Gravity 1.023 (1.001-1.035); Urine WBC 178 /hpf (0 - 3)
[2022-05-31] MEDS ORDERED: cefTRIAXone 1GM/50ML D5W 50 ML IV ONE (16:30)
[2022-05-31] MEDS ORDERED: LEVOTHYROXINE SODIUM 100 MCG/5 ML INJ IV ONE (16:30)
[2022-05-31] MEDS ORDERED: MORPHINE SULFATE INJ 2 MG/ml SYRG IV PRN (17:30)
[2022-05-31] MEDS ORDERED: NITROGLYCERIN 0.4 MG SL TAB SL PRN (17:30)
[2022-05-31] MEDS ORDERED: ALBUMIN 5% 500 ML IV ONE (17:30)
[2022-05-31] MEDS ORDERED: DEXTROSE (50%) 50ML SYRG IV PRN (17:30)
[2022-05-31] MEDS: DOPamine 1600MCG/ML D5W 250 ML IV SCH (18:35)
[2022-05-31] MEDS: FUROSEMIDE INJECTION 100 MG in SODIUM CHL 0.9% 100 ML IV SCH ×2 (21:58→22:30)
[2022-05-31] MEDS: [UNRECOGNIZED DRUG - OTHER] PO SCH (22:00)
[2022-05-31] MEDS: ACCU-CHEK COMFORT CURVE STRIP VI SCH (22:22)
[2022-05-31] MEDS: InsuLIN REG 1unit/0.01ml Soln (100units/ml) SC SCH (22:28)
[2022-06-01] MEDS ORDERED: FUROSEMIDE INJECTION 10 ML ONE (03:32)
[2022-06-01] MEDS: FUROSEMIDE INJECTION 100 MG in SODIUM CHL 0.9% 100 ML IV SCH ×5 (03:44→21:04)
[2022-06-01] MEDS: DOPamine 1600MCG/ML D5W 250 ML IV SCH ×2 (04:30→15:29)
[2022-06-01] MEDS: LEVOTHYROXINE SODIUM 100 MCG TAB PO SCH (08:28)
[2022-06-01] MEDS: InsuLIN REG 1unit/0.01ml Soln (100units/ml) SC SCH ×4 (08:33→22:18)
[2022-06-01] MEDS: ACCU-CHEK COMFORT CURVE STRIP VI SCH ×4 (08:35→22:10)
[2022-06-01] MEDS: [UNRECOGNIZED DRUG - OTHER] PO SCH ×3 (10:00→22:10)
[2022-06-01] MEDS: ALLOPURINOL 300 MG TAB PO SCH (10:17)
[2022-06-01] MEDS: POTASSIUM CHL 20 Meq TABLET PO SCH (10:18)
[2022-06-01] MEDS: AMIODARONE HCL 200 MG TAB PO SCH (10:19)
[2022-06-01 16:12] VITALS: BP 93/56
[2022-06-01 17:00] VITALS: BP 93/56
[2022-06-01 20:00] VITALS: BP 135/88
[2022-06-01 22:00] VITALS: BP 155/88
[2022-06-02] MEDS: FUROSEMIDE INJECTION 100 MG in SODIUM CHL 0.9% 100 ML IV SCH ×5 (00:30→19:30)
[2022-06-02] MEDS: DOPamine 1600MCG/ML D5W 250 ML IV SCH ×2 (02:11→14:02)
[2022-06-02] MEDS: PROMETHAZINE HCL 25 MG/ML 1ML IV PRN (04:45)
[2022-06-02 05:00] VITALS: BP 146/90
[2022-06-02] MEDS: ACCU-CHEK COMFORT CURVE STRIP VI SCH ×4 (06:04→21:44)
[2022-06-02] MEDS: LEVOTHYROXINE SODIUM 100 MCG TAB PO SCH (06:24)
[2022-06-02] MEDS: InsuLIN REG 1unit/0.01ml Soln (100units/ml) SC SCH ×4 (06:25→22:05)
[2022-06-02 07:30] VITALS: BP 146/90
[2022-06-02 09:00] VITALS: BP 135/93
[2022-06-02] MEDS: AMIODARONE HCL 200 MG TAB PO SCH (09:26)
[2022-06-02] MEDS: ALLOPURINOL 300 MG TAB PO SCH (09:27)
[2022-06-02] MEDS: POTASSIUM CHL 20 Meq TABLET PO SCH (09:27)
[2022-06-02] MEDS: [UNRECOGNIZED DRUG - OTHER] PO SCH ×2 (09:46→21:45)
[2022-06-02 13:00] VITALS: BP 127/83
[2022-06-02 18:41] LABS: Basophils # (auto) 0.1 10 ^3/uL (0-0.2); Basophils % (auto) 0.5 % (0.0-2.0); Eosinophils # (auto) 0.1 10 ^3/uL (0-0.8); Eosinophils % (auto) 1.2 % (0.0-7.0); Hematocrit 51.1 % (41.0-53.0); Hemoglobin 16.5 g/dL (13.5-17.5); Lymphocytes % (auto) 8.7 % (10.0-50.0); Mean Corpuscular Hemoglobin 28.2 pg (28.0-32.0); Mean Corpuscular Hgb Conc. 32.3 g/dL (32.0-36.0); Mean Corpuscular Volume 87.4 fL (80.0-100.0); Monocytes # (auto) 1.6 10 ^3/uL (0-1.3); Monocytes % (auto) 13.7 % (0.0-12.0); Neutrophils # (auto) 8.7 10 ^3/uL (1.6-8.6); Neutrophils % (auto) 75.9 % (37.0-80.0); Nucleated Red Blood Cells % 0.2 %; Red Blood Cells 5.84 10^6/uL (4.5-5.90); Red Cell Distribution Width 17.4 % (11.8-14.3); White Blood Cell 11.4 10^3/uL (4.4-10.8)
[2022-06-02 19:07] LABS: BUN/Creatinine Ratio 29.8; Calcium 8.9 mg/dL (8.5-10.1); Potassium 3.9 mmol/L (3.5-5.1)
[2022-06-02 22:00] VITALS: BP 135/97
[2022-06-02] MEDS: THROAT LOZENGES(CEPASTAT) MT PRN (22:05)
[2022-06-03] MEDS: DOPamine 1600MCG/ML D5W 250 ML IV SCH ×3 (01:21→20:10)
[2022-06-03] MEDS: FUROSEMIDE INJECTION 100 MG in SODIUM CHL 0.9% 100 ML IV SCH ×5 (01:22→20:30)
[2022-06-03 04:54] VITALS: BP 148/81
[2022-06-03] MEDS: ACCU-CHEK COMFORT CURVE STRIP VI SCH ×4 (05:36→22:12)
[2022-06-03] MEDS: LEVOTHYROXINE SODIUM 100 MCG TAB PO SCH (05:37)
[2022-06-03] MEDS: InsuLIN REG 1unit/0.01ml Soln (100units/ml) SC SCH ×4 (05:59→22:13)
[2022-06-03 06:19] LABS: Albumin 3.7 g/dL (3.4-5.0); BUN/Creatinine Ratio 29.4; Calcium 8.9 mg/dL (8.5-10.1); Phosphorus 4.5 mg/dL (2.5-4.90); Potassium 4.2 mmol/L (3.5-5.1)
[2022-06-03 07:30] VITALS: BP 148/81
[2022-06-03] MEDS: AMIODARONE HCL 200 MG TAB PO SCH (08:10)
[2022-06-03] MEDS: POTASSIUM CHL 20 Meq TABLET PO SCH (08:10)
[2022-06-03] MEDS: ALLOPURINOL 300 MG TAB PO SCH (08:11)
[2022-06-03] MEDS: THROAT LOZENGES(CEPASTAT) MT PRN ×2 (08:11→17:00)
[2022-06-03] MEDS: [UNRECOGNIZED DRUG - OTHER] PO SCH ×2 (08:33→22:12)
[2022-06-03 09:00] VITALS: BP 118/86
[2022-06-03 13:00] VITALS: BP 117/74
[2022-06-03 16:48] VITALS: BP 149/98
[2022-06-03 22:00] VITALS: BP 147/91
[2022-06-04] MEDS: PROMETHAZINE HCL 25 MG/ML 1ML IV PRN (00:02)
[2022-06-04] MEDS: FUROSEMIDE INJECTION 100 MG in SODIUM CHL 0.9% 100 ML IV SCH ×4 (01:30→18:27)
[2022-06-04 05:00] VITALS: BP 145/89
[2022-06-04] MEDS: ACCU-CHEK COMFORT CURVE STRIP VI SCH ×4 (05:44→22:22)
[2022-06-04] MEDS: DOPamine 1600MCG/ML D5W 250 ML IV SCH ×2 (05:45→18:28)
[2022-06-04] MEDS: LEVOTHYROXINE SODIUM 100 MCG TAB PO SCH (05:46)
[2022-06-04] MEDS: InsuLIN REG 1unit/0.01ml Soln (100units/ml) SC SCH ×4 (05:47→22:37)
[2022-06-04 09:03] VITALS: BP 150/97
[2022-06-04] MEDS: ALLOPURINOL 300 MG TAB PO SCH (10:30)
[2022-06-04] MEDS: POTASSIUM CHL 20 Meq TABLET PO SCH (10:31)
[2022-06-04] MEDS: AMIODARONE HCL 200 MG TAB PO SCH (10:32)
[2022-06-04] MEDS: [UNRECOGNIZED DRUG - OTHER] PO SCH ×2 (10:34→21:15)
[2022-06-04 17:08] VITALS: BP 105/77
[2022-06-04 22:00] VITALS: BP 138/91
[2022-06-05] MEDS: FUROSEMIDE INJECTION 100 MG in SODIUM CHL 0.9% 100 ML IV SCH ×7 (00:50→23:09)
[2022-06-05 05:00] VITALS: BP 130/83
[2022-06-05] MEDS: DOPamine 1600MCG/ML D5W 250 ML IV SCH ×2 (06:03→14:50)
[2022-06-05] MEDS: LEVOTHYROXINE SODIUM 100 MCG TAB PO SCH (06:05)
[2022-06-05] MEDS: ACCU-CHEK COMFORT CURVE STRIP VI SCH ×4 (06:12→21:48)
[2022-06-05 06:21] LABS: Albumin 3.9 g/dL (3.4-5.0); BUN/Creatinine Ratio 31.4; Calcium 8.5 mg/dL (8.5-10.1); Potassium 3.6 mmol/L (3.5-5.1)
[2022-06-05] MEDS: InsuLIN REG 1unit/0.01ml Soln (100units/ml) SC SCH ×4 (07:02→22:05)
[2022-06-05 09:00] VITALS: BP 119/76
[2022-06-05] MEDS: AMIODARONE HCL 200 MG TAB PO SCH (10:19)
[2022-06-05] MEDS: ALLOPURINOL 300 MG TAB PO SCH (10:20)
[2022-06-05] MEDS: POTASSIUM CHL 20 Meq TABLET PO SCH (10:20)
[2022-06-05] MEDS: [UNRECOGNIZED DRUG - OTHER] PO SCH ×2 (11:54→21:37)
[2022-06-05 13:00] VITALS: BP 137/93
[2022-06-05] MEDS ORDERED: metOLazone 5 MG TAB PO ONE (14:15)
[2022-06-05 15:27] VITALS: BP 137/93
[2022-06-05 17:00] VITALS: BP 108/74
[2022-06-05 22:00] VITALS: BP 127/77
[2022-06-06] MEDS: FUROSEMIDE INJECTION 100 MG in SODIUM CHL 0.9% 100 ML IV SCH ×3 (04:20→14:20)
[2022-06-06] MEDS: DOPamine 1600MCG/ML D5W 250 ML IV SCH ×2 (04:21→12:10)
[2022-06-06 05:00] VITALS: BP 111/77
[2022-06-06] MEDS: ACCU-CHEK COMFORT CURVE STRIP VI SCH ×2 (06:16→12:12)
[2022-06-06] MEDS: InsuLIN REG 1unit/0.01ml Soln (100units/ml) SC SCH ×2 (06:24→13:55)
[2022-06-06] MEDS: LEVOTHYROXINE SODIUM 100 MCG TAB PO SCH (06:33)
[2022-06-06 08:10] VITALS: BP 149/83
[2022-06-06] MEDS: ALLOPURINOL 300 MG TAB PO SCH (09:38)
[2022-06-06] MEDS: POTASSIUM CHL 20 Meq TABLET PO SCH (09:39)
[2022-06-06] MEDS: AMIODARONE HCL 200 MG TAB PO SCH (09:40)
[2022-06-06] MEDS: [UNRECOGNIZED DRUG - OTHER] PO SCH (09:40)
[2022-06-06 13:00] VITALS: BP 149/94
[2022-06-06 13:15] LABS: Basophils # (auto) 0 10 ^3/uL (0-0.2); Basophils % (auto) 0.4 % (0.0-2.0); Eosinophils # (auto) 0.1 10 ^3/uL (0-0.8); Eosinophils % (auto) 0.6 % (0.0-7.0); Hematocrit 50.3 % (41.0-53.0); Lymphocytes # (auto) 0.9 10 ^3/uL (0.4-5.4); Lymphocytes % (auto) 8.1 % (10.0-50.0); Mean Corpuscular Hemoglobin 28.4 pg (28.0-32.0); Mean Corpuscular Hgb Conc. 31.9 g/dL (32.0-36.0); Monocytes # (auto) 1.6 10 ^3/uL (0-1.3); Monocytes % (auto) 13.7 % (0.0-12.0); Neutrophils % (auto) 77.2 % (37.0-80.0); Nucleated Red Blood Cells % 0.1 %; Red Blood Cells 5.65 10^6/uL (4.5-5.90); Red Cell Distribution Width 17.5 % (11.8-14.3); White Blood Cell 11.6 10^3/uL (4.4-10.8)
[2022-06-06 13:52] LABS: BUN/Creatinine Ratio 29.3; Calcium 8.7 mg/dL (8.5-10.1); Potassium 3.5 mmol/L (3.5-5.1)
[2022-06-07] MEDS ORDERED: ALLOPURINOL 100 MG TAB PO SCH (10:00)
== END 2022-06-06 15:31 | disposition home or self-care (01) | DRG 291 ==
LOC: EDUNIT# 07:46 → ER 07:46 → EDBD 07:46 → TELE 17:33 → TELE-WESTW 06-01 15:56
PROVIDERS: ADMIT Internal Medicine Cardiovascular Disease; ATTEND Internal Medicine Cardiovascular Disease
DX: I13.0 Hypertensive heart and chronic kidney disease with heart failure and stage 1 through stage 4 chronic kidney disease, or unspecified chronic kidney disease (principal); I50.23 Acute on chronic systolic (congestive) heart failure; N17.0 Acute kidney failure with tubular necrosis; N12 Tubulo-interstitial nephritis, not specified as acute or chronic; K52.9 Noninfective gastroenteritis and colitis, unspecified; E03.9 Hypothyroidism, unspecified; I25.10 Atherosclerotic heart disease of native coronary artery without angina pectoris; I25.5 Ischemic cardiomyopathy; E11.22 Type 2 diabetes mellitus with diabetic chronic kidney disease; Z20.822 Contact with and (suspected) exposure to COVID-19; E78.5 Hyperlipidemia, unspecified; N18.32 Chronic kidney disease, stage 3b; Z86.16 Personal history of COVID-19; Z87.01 Personal history of pneumonia (recurrent); Z95.0 Presence of cardiac pacemaker; Z95.1 Presence of aortocoronary bypass graft; Z95.5 Presence of coronary angioplasty implant and graft; Z91.013 Allergy to seafood; Z88.8 Allergy status to other drugs, medicaments and biological substances; I25.2 Old myocardial infarction; Z82.49 Family history of ischemic heart disease and other diseases of the circulatory system; Z83.3 Family history of diabetes mellitus; Z91.19 Patient's noncompliance with other medical treatment and regimen; N28.9 Disorder of kidney and ureter, unspecified
CPT/HCPCS: 36415; 71045; 80048; 80053; 80069; 81001; 82962; 83605; 83690; 83735; 83880; 84443; 84484; 85025; 87040; 93005; 96360; 96361; 96365; 96366; 96367; 96375; G0378; G0463; J0696; J1642; J1815; J2405; J3490

== ENCOUNTER 2022-06-10 10:08 | Inpatient (IN) | payer MEDICARE ==
[~2022-06-10] VITALS: Ht 177.8 cm; Wt 124.0 kg
[2022-06-10 11:14] LABS: Basophils # (auto) 0 10 ^3/uL (0-0.2); Basophils % (auto) 0.7 % (0.0-2.0); Eosinophils # (auto) 0.1 10 ^3/uL (0-0.8); Eosinophils % (auto) 1.2 % (0.0-7.0); Hematocrit 42.9 % (41.0-53.0); Lymphocytes # (auto) 0.7 10 ^3/uL (0.4-5.4); Lymphocytes % (auto) 9.8 % (10.0-50.0); Mean Corpuscular Hemoglobin 29.1 pg (28.0-32.0); Mean Corpuscular Hgb Conc. 32.7 g/dL (32.0-36.0); Mean Corpuscular Volume 89.2 fL (80.0-100.0); Monocytes % (auto) 13.1 % (0.0-12.0); Neutrophils # (auto) 5.5 10 ^3/uL (1.6-8.6); Neutrophils % (auto) 75.2 % (37.0-80.0); Nucleated Red Blood Cells % 0.2 %; Red Blood Cells 4.81 10^6/uL (4.5-5.90); White Blood Cell 7.3 10^3/uL (4.4-10.8)
[2022-06-10] MEDS ORDERED: SODIUM CHLORIDE 0.9% 1,000 ML IV ONE ×2 (11:15)
[2022-06-10 11:53] LABS: Potassium 3.6 mmol/L (3.5-5.1)
[2022-06-10 11:54] LABS: INR 1.18 (0.9-1.15); Partial Thromboplastin Time 26.1 sec (24.6-33.4)
[2022-06-10 11:57] LABS: BUN/Creatinine Ratio 33.3; Bilirubin, Total 0.9 mg/dL (0.2-1.0)
[2022-06-10] MEDS: NOREPINEPHRINE 8 MG/250ML KIT 250 ML IV SCH (12:39)
[2022-06-10] MEDS ORDERED: IOHEXOL 350 MG/ML 100ML IJ ONE (16:16)
[2022-06-10] MEDS ORDERED: ENOXAPARIN SOD 60 MG/0.6 ML SYRINGE SC ONE (19:30)
[2022-06-11] MEDS: NOREPINEPHRINE 8 MG/250ML KIT 250 ML IV SCH (00:22)
[2022-06-11 02:29] LABS: Urine Bacteria MANY /hpf (None Seen); Urine Blood Negative /uL (Negative); Urine Hyaline Cast MANY /lpf (0 - 2); Urine Mucus FEW (None Seen); Urine Specific Gravity 1.018 (1.001-1.035); Urine WBC 100 /hpf (0 - 3)
[2022-06-11] MEDS: ACCU-CHEK COMFORT CURVE STRIP VI SCH ×5 (04:00→21:15)
[2022-06-11] MEDS ORDERED: ONDANSETRON HCL 4 MG/2 ML VIAL IV PRN (04:00)
[2022-06-11] MEDS ORDERED: DEXTROSE (50%) 50ML SYRG IV PRN (04:00)
[2022-06-11] MEDS ORDERED: NITROGLYCERIN 0.4 MG SL TAB SL PRN (04:00)
[2022-06-11] MEDS ORDERED: MORPHINE SULFATE 4 MG/ML SYR/VIAL IV PRN (04:00)
[2022-06-11] MEDS ORDERED: ACETAMINOPHEN 325 MG TAB PO PRN (04:00)
[2022-06-11] MEDS: InsuLIN REG 1unit/0.01ml Soln (100units/ml) SC SCH ×5 (04:52→21:25)
[2022-06-11] MEDS: SODIUM CHLORIDE 0.9% 1,000 ML IV SCH (04:53)
[2022-06-11] MEDS: cefTRIAXone 1GM/50ML D5W 50 ML IV SCH (05:32)
[2022-06-11 07:34] LABS: Basophils # (auto) 0.1 10 ^3/uL (0-0.2); Basophils % (auto) 0.6 % (0.0-2.0); Eosinophils # (auto) 0 10 ^3/uL (0-0.8); Eosinophils % (auto) 0.5 % (0.0-7.0); Hematocrit 46.5 % (41.0-53.0); Hemoglobin 15.4 g/dL (13.5-17.5); Lymphocytes % (auto) 11.1 % (10.0-50.0); Mean Corpuscular Hemoglobin 29.3 pg (28.0-32.0); Mean Corpuscular Hgb Conc. 33.1 g/dL (32.0-36.0); Mean Corpuscular Volume 88.6 fL (80.0-100.0); Monocytes # (auto) 0.8 10 ^3/uL (0-1.3); Monocytes % (auto) 8.8 % (0.0-12.0); Neutrophils # (auto) 7.1 10 ^3/uL (1.6-8.6); Red Blood Cells 5.25 10^6/uL (4.5-5.90)
[2022-06-11 07:49] LABS: Potassium 3.9 mmol/L (3.5-5.1)
[2022-06-11] MEDS: ENOXAPARIN SOD 60 MG/0.6 ML SYRINGE SC SCH ×2 (08:14→21:15)
[2022-06-11] MEDS: LISINOPRIL 5 MG TAB PO SCH (10:00)
[2022-06-11] MEDS: CARVEDILOL 3.125 MG TAB PO SCH ×2 (10:00→21:14)
[2022-06-11] MEDS: ASPirin 81 mg TAB PO SCH (10:33)
[2022-06-11] MEDS: POTASSIUM CHL 20 Meq TABLET PO SCH ×2 (10:34→21:15)
[2022-06-11] MEDS: CLOPIDOGREL BISULFATE 75 MG TAB PO SCH (10:34)
[2022-06-11] MEDS: DOPamine 1600MCG/ML D5W 250 ML IV SCH ×2 (10:57→23:40)
[2022-06-11] MEDS: FUROSEMIDE INJECTION 100 MG in D5W 5% 100 ML IV SCH ×4 (11:04→22:22)
[2022-06-11] MEDS: MORPHINE SULFATE INJ 2 MG/ml SYRG IV PRN (11:26)
[2022-06-11] MEDS: ATORVASTATIN 20 MG TAB PO SCH (21:15)
[2022-06-12] MEDS: InsuLIN REG 1unit/0.01ml Soln (100units/ml) SC SCH ×6 (01:21→21:25)
[2022-06-12] MEDS: ACCU-CHEK COMFORT CURVE STRIP VI SCH ×6 (01:21→21:14)
[2022-06-12] MEDS: FUROSEMIDE INJECTION 100 MG in D5W 5% 100 ML IV SCH ×4 (02:54→18:22)
[2022-06-12 05:00] VITALS: BP 145/90
[2022-06-12] MEDS: cefTRIAXone 1GM/50ML D5W 50 ML IV SCH (05:28)
[2022-06-12 06:15] LABS: Basophils # (auto) 0.1 10 ^3/uL (0-0.2); Basophils % (auto) 0.6 % (0.0-2.0); Eosinophils # (auto) 0.2 10 ^3/uL (0-0.8); Eosinophils % (auto) 1.3 % (0.0-7.0); Hematocrit 50.4 % (41.0-53.0); Hemoglobin 16.2 g/dL (13.5-17.5); Lymphocytes # (auto) 1.4 10 ^3/uL (0.4-5.4); Lymphocytes % (auto) 12.3 % (10.0-50.0); Mean Corpuscular Hemoglobin 28.7 pg (28.0-32.0); Mean Corpuscular Hgb Conc. 32.2 g/dL (32.0-36.0); Mean Corpuscular Volume 89.1 fL (80.0-100.0); Monocytes # (auto) 1.7 10 ^3/uL (0-1.3); Monocytes % (auto) 14.6 % (0.0-12.0); Neutrophils # (auto) 8.2 10 ^3/uL (1.6-8.6); Neutrophils % (auto) 71.2 % (37.0-80.0); Nucleated Red Blood Cells % 0.1 %; Potassium 4.4 mmol/L (3.5-5.1); Red Blood Cells 5.65 10^6/uL (4.5-5.90); Red Cell Distribution Width 18.5 % (11.8-14.3); White Blood Cell 11.5 10^3/uL (4.4-10.8)
[2022-06-12 06:20] LABS: BUN/Creatinine Ratio 35.3; Calcium 8.6 mg/dL (8.5-10.1)
[2022-06-12] MEDS: SODIUM CHLORIDE 0.9% 1,000 ML IV SCH (06:33)
[2022-06-12 08:00] VITALS: BP 150/72
[2022-06-12] MEDS: ENOXAPARIN SOD 60 MG/0.6 ML SYRINGE SC SCH (08:39)
[2022-06-12] MEDS: DOPamine 1600MCG/ML D5W 250 ML IV SCH ×4 (08:40→21:25)
[2022-06-12 09:00] VITALS: BP 150/72
[2022-06-12] MEDS: ASPirin 81 mg TAB PO SCH (09:53)
[2022-06-12] MEDS: CARVEDILOL 3.125 MG TAB PO SCH ×2 (09:53→21:14)
[2022-06-12] MEDS: CLOPIDOGREL BISULFATE 75 MG TAB PO SCH (09:54)
[2022-06-12] MEDS: POTASSIUM CHL 20 Meq TABLET PO SCH ×2 (09:54→21:13)
[2022-06-12] MEDS: LISINOPRIL 5 MG TAB PO SCH (09:54)
[2022-06-12 13:00] VITALS: BP 134/88
[2022-06-12] MEDS: MORPHINE SULFATE INJ 2 MG/ml SYRG IV PRN ×2 (15:23→21:15)
[2022-06-12 17:00] VITALS: BP 132/86
[2022-06-12] MEDS ORDERED: ENOXAPARIN SOD 120 MG/0.8 ML SYRINGE SC SCH (20:00)
[2022-06-12] MEDS: ATORVASTATIN 20 MG TAB PO SCH (21:13)
[2022-06-12 22:00] VITALS: BP 143/61
[2022-06-13] MEDS: FUROSEMIDE INJECTION 100 MG in D5W 5% 100 ML IV SCH (01:11)
[2022-06-13] MEDS: ACCU-CHEK COMFORT CURVE STRIP VI SCH ×2 (01:11→05:40)
[2022-06-13] MEDS: InsuLIN REG 1unit/0.01ml Soln (100units/ml) SC SCH ×2 (01:12→05:55)
[2022-06-13 04:45] VITALS: BP 129/90
[2022-06-13] MEDS: SODIUM CHLORIDE 0.9% 1,000 ML IV SCH (04:47)
[2022-06-13] MEDS: cefTRIAXone 1GM/50ML D5W 50 ML IV SCH (05:40)
== END 2022-06-13 06:49 | disposition left against medical advice (07) | DRG 280 ==
LOC: EDBD 10:08 → ER 10:13 → TELE 06-11 04:03 → TELE-WESTW 06-11 18:53
PROVIDERS: ADMIT Hospitalist; ATTEND Hospitalist
DX: I21.4 Non-ST elevation (NSTEMI) myocardial infarction (principal); I50.43 Acute on chronic combined systolic (congestive) and diastolic (congestive) heart failure; I13.0 Hypertensive heart and chronic kidney disease with heart failure and stage 1 through stage 4 chronic kidney disease, or unspecified chronic kidney disease; E44.0 Moderate protein-calorie malnutrition; E11.22 Type 2 diabetes mellitus with diabetic chronic kidney disease; E86.1 Hypovolemia; I25.10 Atherosclerotic heart disease of native coronary artery without angina pectoris; J44.9 Chronic obstructive pulmonary disease, unspecified; R09.89 Other specified symptoms and signs involving the circulatory and respiratory systems; I48.91 Unspecified atrial fibrillation; Z20.822 Contact with and (suspected) exposure to COVID-19; I25.5 Ischemic cardiomyopathy; R55 Syncope and collapse; Z53.29 Procedure and treatment not carried out because of patient's decision for other reasons; E05.90 Thyrotoxicosis, unspecified without thyrotoxic crisis or storm; N18.32 Chronic kidney disease, stage 3b; Z82.49 Family history of ischemic heart disease and other diseases of the circulatory system; Z68.39 Body mass index [BMI] 39.0-39.9, adult; Z91.041 Radiographic dye allergy status; Z91.013 Allergy to seafood; Z83.3 Family history of diabetes mellitus; Z95.0 Presence of cardiac pacemaker; Z95.1 Presence of aortocoronary bypass graft; Z95.5 Presence of coronary angioplasty implant and graft
CPT/HCPCS: 36415; 71045; 80048; 80053; 80061; 81001; 82962; 83735; 83880; 84443; 84484; 85025; 85379; 85610; 85730; 87086; 87088; 87186; 93005; 96360; 96361; 96365; 96366; 96372; 99291; G0378; G0463; J0696; J1815; J7060

== ENCOUNTER 2022-06-16 08:29 | Inpatient (IN) | payer MEDICARE ==
[~2022-06-16] VITALS: Ht 177.8 cm; Wt 112.9 kg
[2022-06-16 09:27] LABS: Basophils # (auto) 0.1 10 ^3/uL (0-0.2); Basophils % (auto) 0.6 % (0.0-2.0); Eosinophils # (auto) 0 10 ^3/uL (0-0.8); Eosinophils % (auto) 0.4 % (0.0-7.0); Hematocrit 48.9 % (41.0-53.0); Hemoglobin 15.7 g/dL (13.5-17.5); Mean Corpuscular Hemoglobin 28.8 pg (28.0-32.0); Mean Corpuscular Hgb Conc. 32.2 g/dL (32.0-36.0); Mean Corpuscular Volume 89.4 fL (80.0-100.0); Monocytes # (auto) 1.1 10 ^3/uL (0-1.3); Monocytes % (auto) 10.7 % (0.0-12.0); Neutrophils % (auto) 78.3 % (37.0-80.0); Nucleated Red Blood Cells % 0.1 %; Red Blood Cells 5.47 10^6/uL (4.5-5.90); Red Cell Distribution Width 18.5 % (11.8-14.3); White Blood Cell 10.2 10^3/uL (4.4-10.8)
[2022-06-16 09:46] LABS: Albumin 3.5 g/dL (3.4-5.0); Calcium 8.5 mg/dL (8.5-10.1)
[2022-06-16 09:50] LABS: Bilirubin, Total 1.9 mg/dL (0.2-1.0); Total Protein 7.5 g/dL (6.4-8.2)
[2022-06-16 09:57] LABS: BUN/Creatinine Ratio 25.7; Potassium 5.7 mmol/L (3.5-5.1)
[2022-06-16] MEDS ORDERED: FUROSEMIDE 20 MG/2 ML VIAL IV ONE (10:45)
[2022-06-16] MEDS ORDERED: SODIUM BICARBONATE 8.4% INJ 50ML SYRINGE IV ONE (10:45)
[2022-06-16] MEDS ORDERED: InsuLIN REG 1unit/0.01ml Soln (100units/ml) IV ONE (10:45)
[2022-06-16] MEDS ORDERED: DEXTROSE (50%) 50ML SYRG IV ONE (10:45)
[2022-06-16] MEDS ORDERED: ALBUTEROL SULF 2.5 MG/0.5ML(0.5%) NEB SOLN NEB ONE (10:45)
[2022-06-16] MEDS ORDERED: CALCIUM GLUC 1,000mg/50ml-NS 50 ML IV ONE (10:45)
[2022-06-16] MEDS ORDERED: SODIUM ZIRCONIUM CYCL 10 GM PAK PO ONE (10:45)
[2022-06-16] MEDS ORDERED: cefTRIAXone 1GM/50ML D5W 50 ML IV ONE (18:00)
[2022-06-16] MEDS ORDERED: DEXTROSE (50%) 50ML SYRG IV PRN (18:00)
[2022-06-16] MEDS ORDERED: MORPHINE SULFATE INJ 2 MG/ml SYRG IV PRN (18:00)
[2022-06-16] MEDS ORDERED: NITROGLYCERIN 0.4 MG SL TAB SL PRN (18:00)
[2022-06-16 18:26] LABS: Cholesterol 120 mg/dL (< 200)
[2022-06-16 18:29] LABS: HDL Cholesterol 36 mg/dL (40-59); LDL Cholesterol 87 mg/dL (< 100); Triglycerides 84 mg/dL (< 150)
[2022-06-16] MEDS: FUROSEMIDE 20 MG/2 ML VIAL IV SCH (18:31)
[2022-06-16 22:00] VITALS: BP 114/74
[2022-06-16] MEDS: VERICIGUAT PO SCH (22:00)
[2022-06-16] MEDS: ACCU-CHEK COMFORT CURVE STRIP VI SCH (22:00)
[2022-06-16] MEDS: INSULIN 70/30 1unit/0.01ml Susp (100units/ml) SC SCH (22:00)
[2022-06-16] MEDS: InsuLIN REG 1unit/0.01ml Soln (100units/ml) SC SCH (23:39)
[2022-06-16] MEDS: CLINDAMYCIN 600MG IV 50 ML IV SCH (23:40)
[2022-06-17] MEDS: ONDANSETRON HCL 4 MG/2 ML VIAL IV PRN ×2 (00:20→11:27)
[2022-06-17] MEDS ORDERED: EMPA1TAB3 PO (03:32)
[2022-06-17] MEDS ORDERED: RIVA10TA PO (03:32)
[2022-06-17] MEDS ORDERED: FURO1TAB31 PO (03:32)
[2022-06-17] MEDS ORDERED: ONDA-144 PO (03:32)
[2022-06-17 05:00] VITALS: BP 119/77
[2022-06-17] MEDS: InsuLIN REG 1unit/0.01ml Soln (100units/ml) SC SCH ×4 (06:08→23:28)
[2022-06-17] MEDS: CLINDAMYCIN 600MG IV 50 ML IV SCH ×3 (06:08→22:39)
[2022-06-17] MEDS: FUROSEMIDE 20 MG/2 ML VIAL IV SCH (06:09)
[2022-06-17] MEDS: LEVOTHYROXINE SODIUM 100 MCG TAB PO SCH (06:10)
[2022-06-17] MEDS: ACCU-CHEK COMFORT CURVE STRIP VI SCH ×4 (06:10→23:25)
[2022-06-17 06:16] LABS: Basophils # (auto) 0 10 ^3/uL (0-0.2); Basophils % (auto) 0.5 % (0.0-2.0); Eosinophils # (auto) 0.1 10 ^3/uL (0-0.8); Eosinophils % (auto) 0.6 % (0.0-7.0); Hematocrit 45.7 % (41.0-53.0); Hemoglobin 14.7 g/dL (13.5-17.5); Lymphocytes % (auto) 11.2 % (10.0-50.0); Mean Corpuscular Hemoglobin 28.7 pg (28.0-32.0); Mean Corpuscular Hgb Conc. 32.2 g/dL (32.0-36.0); Monocytes % (auto) 11.3 % (0.0-12.0); Neutrophils % (auto) 76.4 % (37.0-80.0); Nucleated Red Blood Cells % 0.1 %; Red Blood Cells 5.14 10^6/uL (4.5-5.90); Red Cell Distribution Width 18.9 % (11.8-14.3); White Blood Cell 9.1 10^3/uL (4.4-10.8)
[2022-06-17 06:23] LABS: Albumin 3.2 g/dL (3.4-5.0); Calcium 8.4 mg/dL (8.5-10.1); Potassium 4.7 mmol/L (3.5-5.1)
[2022-06-17 06:26] LABS: BUN/Creatinine Ratio 30.9; Bilirubin, Total 1.3 mg/dL (0.2-1.0)
[2022-06-17 08:10] VITALS: BP 113/70
[2022-06-17] MEDS ORDERED: cefTRIAXone 1GM/50ML D5W 50 ML IV SCH (09:00)
[2022-06-17 09:27] VITALS: BP 113/70
[2022-06-17] MEDS ORDERED: TICAGRELOR 90 MG TAB PO ONE (09:45)
[2022-06-17] MEDS: ENOXAPARIN SOD 40 MG/0.4 ML SYRINGE SC SCH (11:24)
[2022-06-17] MEDS: ALLOPURINOL 300 MG TAB PO SCH (11:24)
[2022-06-17] MEDS: INSULIN 70/30 1unit/0.01ml Susp (100units/ml) SC SCH ×2 (11:25→23:26)
[2022-06-17] MEDS: VERICIGUAT PO SCH ×2 (11:27→22:00)
[2022-06-17] MEDS: DOBUTamine 1000MCG/ML 250 ML IV SCH ×3 (12:52→22:15)
[2022-06-17] MEDS: ALUM & MAG HYDROX-SIMETH LIQ(MAALOX) 30 ML PO PRN (13:12)
[2022-06-17 13:47] VITALS: BP 115/79
[2022-06-17] MEDS: FUROSEMIDE INJECTION 100 MG in D5W 5% 100 ML IV SCH ×2 (15:41→22:39)
[2022-06-17 16:24] VITALS: BP 141/88
[2022-06-17 22:00] VITALS: BP 105/67
[2022-06-17] MEDS: TICAGRELOR 90 MG TAB PO SCH (22:39)
[2022-06-18 04:46] VITALS: BP 118/75
[2022-06-18] MEDS: FUROSEMIDE INJECTION 100 MG in D5W 5% 100 ML IV SCH ×3 (05:45→20:05)
[2022-06-18] MEDS: CLINDAMYCIN 600MG IV 50 ML IV SCH ×3 (06:00→21:48)
[2022-06-18 06:34] LABS: Basophils # (auto) 0 10 ^3/uL (0-0.2); Basophils % (auto) 0.5 % (0.0-2.0); Eosinophils # (auto) 0.1 10 ^3/uL (0-0.8); Eosinophils % (auto) 1.1 % (0.0-7.0); Hematocrit 45.1 % (41.0-53.0); Hemoglobin 14.8 g/dL (13.5-17.5); Lymphocytes # (auto) 0.8 10 ^3/uL (0.4-5.4); Lymphocytes % (auto) 8.2 % (10.0-50.0); Mean Corpuscular Hemoglobin 29.3 pg (28.0-32.0); Mean Corpuscular Volume 88.8 fL (80.0-100.0); Monocytes # (auto) 1.2 10 ^3/uL (0-1.3); Monocytes % (auto) 11.7 % (0.0-12.0); Neutrophils # (auto) 7.8 10 ^3/uL (1.6-8.6); Neutrophils % (auto) 78.5 % (37.0-80.0); Red Blood Cells 5.08 10^6/uL (4.5-5.90); Red Cell Distribution Width 18.1 % (11.8-14.3); White Blood Cell 9.9 10^3/uL (4.4-10.8)
[2022-06-18 06:52] LABS: Potassium 3.6 mmol/L (3.5-5.1)
[2022-06-18] MEDS: ACCU-CHEK COMFORT CURVE STRIP VI SCH ×4 (06:57→21:48)
[2022-06-18] MEDS: LEVOTHYROXINE SODIUM 100 MCG TAB PO SCH (06:57)
[2022-06-18 06:58] LABS: BUN/Creatinine Ratio 30.4; Calcium 8.5 mg/dL (8.5-10.1); Phosphorus 2.6 mg/dL (2.5-4.90); Uric Acid 10.3 mg/dL (3.5-7.2)
[2022-06-18] MEDS: InsuLIN REG 1unit/0.01ml Soln (100units/ml) SC SCH ×4 (06:58→21:49)
[2022-06-18 08:10] VITALS: BP 140/75
[2022-06-18 08:30] VITALS: BP 140/75
[2022-06-18] MEDS: VERICIGUAT PO SCH ×2 (09:38→21:50)
[2022-06-18] MEDS: ENOXAPARIN SOD 40 MG/0.4 ML SYRINGE SC SCH (09:38)
[2022-06-18] MEDS: TICAGRELOR 90 MG TAB PO SCH ×2 (09:38→21:48)
[2022-06-18] MEDS: ALLOPURINOL 300 MG TAB PO SCH (09:38)
[2022-06-18] MEDS: INSULIN 70/30 1unit/0.01ml Susp (100units/ml) SC SCH ×2 (09:40→21:49)
[2022-06-18] MEDS: DOBUTamine 1000MCG/ML 250 ML IV SCH ×3 (12:56→20:06)
[2022-06-18 14:00] VITALS: BP 117/63
[2022-06-18] MEDS ORDERED: metOLazone 5 MG TAB PO ONE (14:45)
[2022-06-18] MEDS ORDERED: LEVOTHYROXINE SODIUM 100 MCG TAB PO ONE (15:00)
[2022-06-18 16:53] VITALS: BP 113/67
[2022-06-18 21:44] VITALS: BP 116/72
[2022-06-19] MEDS: DOBUTamine 1000MCG/ML 250 ML IV SCH ×3 (03:43→20:37)
[2022-06-19 04:42] VITALS: BP 117/67
[2022-06-19 06:09] LABS: BUN/Creatinine Ratio 27.6; Calcium 8.2 mg/dL (8.5-10.1); Potassium 3.3 mmol/L (3.5-5.1)
[2022-06-19] MEDS: CLINDAMYCIN 600MG IV 50 ML IV SCH ×3 (06:09→22:30)
[2022-06-19] MEDS: ACCU-CHEK COMFORT CURVE STRIP VI SCH ×4 (06:10→22:30)
[2022-06-19] MEDS: LEVOTHYROXINE SODIUM 100 MCG TAB PO SCH (06:10)
[2022-06-19] MEDS: InsuLIN REG 1unit/0.01ml Soln (100units/ml) SC SCH ×4 (06:22→22:00)
[2022-06-19 09:00] VITALS: BP 113/70
[2022-06-19] MEDS: TICAGRELOR 90 MG TAB PO SCH ×2 (09:50→22:30)
[2022-06-19] MEDS: ALLOPURINOL 300 MG TAB PO SCH (09:50)
[2022-06-19] MEDS: ENOXAPARIN SOD 40 MG/0.4 ML SYRINGE SC SCH (09:53)
[2022-06-19] MEDS: VERICIGUAT PO SCH ×2 (09:54→22:00)
[2022-06-19 10:07] LABS: INR 1.28 (0.9-1.15); Partial Thromboplastin Time 27.3 sec (24.6-33.4)
[2022-06-19] MEDS: INSULIN 70/30 1unit/0.01ml Susp (100units/ml) SC SCH ×2 (10:10→22:31)
[2022-06-19] MEDS: FUROSEMIDE INJECTION 100 MG in D5W 5% 100 ML IV SCH (12:23)
[2022-06-19 13:00] VITALS: BP 107/67
[2022-06-19 13:39] LABS: Protein, Urine 8.1 mg/dL (0.0-11.9)
[2022-06-19 14:02] LABS: Urine Bacteria NONE SEEN /hpf (None Seen); Urine Blood Negative /uL (Negative); Urine Specific Gravity 1.007 (1.001-1.035); Urine WBC <1 /hpf (0 - 3)
[2022-06-19] MEDS ORDERED: metOLazone 5 MG TAB PO ONE (14:30)
[2022-06-19] MEDS ORDERED: POTASSIUM EFFERVESENT TAB 25 MEQ PO ONE (14:30)
[2022-06-19 16:57] VITALS: BP 110/74
[2022-06-19] MEDS: ALUM & MAG HYDROX-SIMETH LIQ(MAALOX) 30 ML PO PRN (18:28)
[2022-06-19 20:00] VITALS: BP 123/75
[2022-06-19 22:00] VITALS: BP 123/75
[2022-06-20] VITALS (7 sets, daily range): BP systolic 107–130; BP diastolic 66–83
[2022-06-20] MEDS: FUROSEMIDE INJECTION 100 MG in D5W 5% 100 ML IV SCH ×3 (03:27→19:51)
[2022-06-20] MEDS: ALUM & MAG HYDROX-SIMETH LIQ(MAALOX) 30 ML PO PRN ×2 (03:28→20:00)
[2022-06-20 03:36] LABS: Alanine Aminotransferase 76 U/L (16-61); Albumin 3.4 g/dL (3.4-5.0); Anion Gap 10 (5-15); Aspartate Aminotransferase 55 U/L (15-37); BUN/Creatinine Ratio 24.1; Blood Urea Nitrogen 51 mg/dL (7-18); Calcium 8.3 mg/dL (8.5-10.1); Carbon Dioxide 39 mmol/L (21-32); Chloride 80 mmol/L (98-107); GFR African American 40 mL/min; GFR Non-African American 33 mL/min; Glucose 99 mg/dL (74-106); Potassium 3.6 mmol/L (3.5-5.1); Sodium 129 mmol/L (136-145)
[2022-06-20 03:39] LABS: Alkaline Phosphatase 200 U/L (45-117); Bilirubin, Total 1.2 mg/dL (0.2-1.0); Total Protein 7.3 g/dL (6.4-8.2)
[2022-06-20] MEDS: DOBUTamine 1000MCG/ML 250 ML IV SCH ×3 (04:56→19:50)
[2022-06-20] MEDS: CLINDAMYCIN 600MG IV 50 ML IV SCH ×3 (06:33→21:51)
[2022-06-20] MEDS: ACCU-CHEK COMFORT CURVE STRIP VI SCH ×4 (06:34→21:52)
[2022-06-20] MEDS: LEVOTHYROXINE SODIUM 100 MCG TAB PO SCH (06:34)
[2022-06-20] MEDS: InsuLIN REG 1unit/0.01ml Soln (100units/ml) SC SCH ×4 (06:35→22:04)
[2022-06-20] MEDS: TICAGRELOR 90 MG TAB PO SCH ×2 (10:00→21:52)
[2022-06-20] MEDS: VERICIGUAT PO SCH ×2 (10:00→21:52)
[2022-06-20] MEDS: ENOXAPARIN SOD 40 MG/0.4 ML SYRINGE SC SCH (10:00)
[2022-06-20] MEDS: ALLOPURINOL 300 MG TAB PO SCH (10:33)
[2022-06-20] MEDS: INSULIN 70/30 1unit/0.01ml Susp (100units/ml) SC SCH ×2 (10:45→21:55)
[2022-06-20] MEDS ORDERED: LIDOCAINE 1% (LOCAL ANESTH.) PF 5ml SDV ID ONE (16:15)
[2022-06-20 17:24] LABS: Hepatitis C Antibody Negative (Negative)
[2022-06-20] MEDS ORDERED: ALBUTEROL SULF 2.5 MG/0.5ML(0.5%) NEB SOLN NEB PRN (21:45)
[2022-06-20] MEDS ORDERED: DOCUSATE SOD 100 MG CAP PO PRN (21:45)
[2022-06-20] MEDS: SODIUM CHLOR 0.9% PF (SALINE LOCK) 10ML VIAL/SYR IV SCH (21:52)
[2022-06-21] MEDS: ONDANSETRON HCL 4 MG/2 ML VIAL IV PRN (00:31)
[2022-06-21] MEDS: DOBUTamine 1000MCG/ML 250 ML IV SCH ×3 (03:59→16:52)
[2022-06-21] MEDS: ALUM & MAG HYDROX-SIMETH LIQ(MAALOX) 30 ML PO PRN (04:43)
[2022-06-21 05:00] VITALS: BP 122/73
[2022-06-21] MEDS: ACCU-CHEK COMFORT CURVE STRIP VI SCH ×4 (06:18→21:35)
[2022-06-21] MEDS: LEVOTHYROXINE SODIUM 100 MCG TAB PO SCH (06:18)
[2022-06-21] MEDS: CLINDAMYCIN 600MG IV 50 ML IV SCH ×3 (06:18→21:33)
[2022-06-21] MEDS: InsuLIN REG 1unit/0.01ml Soln (100units/ml) SC SCH ×4 (06:33→21:35)
[2022-06-21 07:13] LABS: Albumin 3.6 g/dL (3.4-5.0); BUN/Creatinine Ratio 26.9; Calcium 8.7 mg/dL (8.5-10.1); Potassium 3.1 mmol/L (3.5-5.1)
[2022-06-21 07:16] LABS: Bilirubin, Total 1.8 mg/dL (0.2-1.0); Total Protein 7.4 g/dL (6.4-8.2)
[2022-06-21] MEDS: FUROSEMIDE INJECTION 100 MG in D5W 5% 100 ML IV SCH (08:14)
[2022-06-21 09:00] VITALS: BP 132/132
[2022-06-21] MEDS ORDERED: GASTROGRAFIN 120 ML SOL ONE (09:08)
[2022-06-21] MEDS: SODIUM CHLOR 0.9% PF (SALINE LOCK) 10ML VIAL/SYR IV SCH ×2 (10:00→21:34)
[2022-06-21] MEDS: VERICIGUAT PO SCH ×2 (10:42→22:00)
[2022-06-21] MEDS: INSULIN 70/30 1unit/0.01ml Susp (100units/ml) SC SCH ×2 (10:43→21:36)
[2022-06-21] MEDS: ALLOPURINOL 100 MG TAB PO SCH (10:43)
[2022-06-21] MEDS: TICAGRELOR 90 MG TAB PO SCH ×2 (10:43→21:34)
[2022-06-21] MEDS: ENOXAPARIN SOD 40 MG/0.4 ML SYRINGE SC SCH (10:44)
[2022-06-21] MEDS: POTASSIUM CHL 20MEQ/100ML 100 ML IV SCH ×2 (11:50→11:51)
[2022-06-21 12:30] VITALS: BP 131/92
[2022-06-21 16:44] VITALS: BP 127/83
[2022-06-21] MEDS ORDERED: LACTULOSE 20Gm/30ML SOLN PO ONE (17:15)
[2022-06-21] MEDS: FUROSEMIDE 40 MG/4 ML VIAL IV SCH (17:47)
[2022-06-21 22:00] VITALS: BP 122/77
[2022-06-22] VITALS (7 sets, daily range): BP systolic 112–132; BP diastolic 66–85
[2022-06-22] MEDS: DOBUTamine 1000MCG/ML 250 ML IV SCH ×4 (02:23→22:03)
[2022-06-22] MEDS: CLINDAMYCIN 600MG IV 50 ML IV SCH ×3 (05:27→22:10)
[2022-06-22] MEDS: FUROSEMIDE 40 MG/4 ML VIAL IV SCH ×3 (05:28→18:20)
[2022-06-22] MEDS: LEVOTHYROXINE SODIUM 100 MCG TAB PO SCH (06:24)
[2022-06-22] MEDS: ACCU-CHEK COMFORT CURVE STRIP VI SCH ×4 (06:25→22:13)
[2022-06-22] MEDS: InsuLIN REG 1unit/0.01ml Soln (100units/ml) SC SCH ×4 (06:27→22:14)
[2022-06-22] MEDS: INSULIN 70/30 1unit/0.01ml Susp (100units/ml) SC SCH ×2 (06:32→22:15)
[2022-06-22] MEDS: VERICIGUAT PO SCH ×2 (10:00→22:00)
[2022-06-22] MEDS: SODIUM CHLOR 0.9% PF (SALINE LOCK) 10ML VIAL/SYR IV SCH ×2 (10:12→22:10)
[2022-06-22] MEDS: ALLOPURINOL 100 MG TAB PO SCH (10:13)
[2022-06-22] MEDS: TICAGRELOR 90 MG TAB PO SCH ×2 (10:13→22:11)
[2022-06-22] MEDS: ENOXAPARIN SOD 40 MG/0.4 ML SYRINGE SC SCH (10:14)
[2022-06-22] MEDS ORDERED: ERGOCALCIFEROL 50,000 UNIT(1.25MG) CAP PO SCH (10:30)
[2022-06-22] MEDS ORDERED: traMADol HCL 50 MG TAB PO PRN (10:30)
[2022-06-22] MEDS ORDERED: metOLazone 5 MG TAB PO ONE (11:30)
[2022-06-22 12:38] LABS: Basophils # (auto) 0 10 ^3/uL (0-0.2); Basophils % (auto) 0.3 % (0.0-2.0); Eosinophils # (auto) 0 10 ^3/uL (0-0.8); Eosinophils % (auto) 0.3 % (0.0-7.0); Hematocrit 42.2 % (41.0-53.0); Lymphocytes # (auto) 0.6 10 ^3/uL (0.4-5.4); Lymphocytes % (auto) 5.5 % (10.0-50.0); Mean Corpuscular Hemoglobin 29.5 pg (28.0-32.0); Mean Corpuscular Hgb Conc. 33.1 g/dL (32.0-36.0); Monocytes # (auto) 1.3 10 ^3/uL (0-1.3); Monocytes % (auto) 12.8 % (0.0-12.0); Neutrophils # (auto) 8.4 10 ^3/uL (1.6-8.6); Neutrophils % (auto) 81.1 % (37.0-80.0); Red Blood Cells 4.74 10^6/uL (4.5-5.90); Red Cell Distribution Width 18.4 % (11.8-14.3); White Blood Cell 10.4 10^3/uL (4.4-10.8)
[2022-06-22 12:48] LABS: Potassium 3.3 mmol/L (3.5-5.1)
[2022-06-22 12:56] LABS: Albumin 3.8 g/dL (3.4-5.0); BUN/Creatinine Ratio 22.5; Bilirubin, Total 2.3 mg/dL (0.2-1.0); Calcium 8.6 mg/dL (8.5-10.1); Magnesium 2.9 mg/dL (1.6-2.6); Phosphorus 5.1 mg/dL (2.5-4.90); Total Protein 7.6 g/dL (6.4-8.2)
[2022-06-22] MEDS: HYDROcodone-ACET 10/325MG TAB PO PRN ×2 (14:08→21:55)
[2022-06-22] MEDS: ONDANSETRON HCL 4 MG/2 ML VIAL IV PRN (20:34)
[2022-06-22] MEDS ORDERED: POTASSIUM EFFERVESENT TAB 25 MEQ GT SCH (22:00)
[2022-06-23] MEDS: ONDANSETRON HCL 4 MG/2 ML VIAL IV PRN (03:26)
[2022-06-23 04:53] VITALS: BP 107/72
[2022-06-23] MEDS: HYDROcodone-ACET 10/325MG TAB PO PRN (05:31)
[2022-06-23] MEDS: DOBUTamine 1000MCG/ML 250 ML IV SCH (05:39)
[2022-06-23] MEDS: CLINDAMYCIN 600MG IV 50 ML IV SCH (05:40)
[2022-06-23] MEDS: FUROSEMIDE 40 MG/4 ML VIAL IV SCH (05:41)
[2022-06-23] MEDS: INSULIN 70/30 1unit/0.01ml Susp (100units/ml) SC SCH (07:00)
[2022-06-23] MEDS: InsuLIN REG 1unit/0.01ml Soln (100units/ml) SC SCH (07:00)
[2022-06-23] MEDS: LEVOTHYROXINE SODIUM 100 MCG TAB PO SCH ×2 (07:00→07:14)
[2022-06-23 07:03] LABS: Albumin 3.6 g/dL (3.4-5.0); Bilirubin, Total 2.6 mg/dL (0.2-1.0); Calcium 8.4 mg/dL (8.5-10.1); Magnesium 2.8 mg/dL (1.6-2.6); Phosphorus 5.6 mg/dL (2.5-4.90); Total Protein 6.8 g/dL (6.4-8.2)
[2022-06-23] MEDS: ACCU-CHEK COMFORT CURVE STRIP VI SCH (07:05)
[2022-06-23 08:00] VITALS: BP 110/74
[2022-06-23 09:00] VITALS: BP 110/74
[2022-06-23] MEDS ORDERED: POTASSIUM CHL 20 Meq TABLET PO ONE (09:30)
[2022-06-23] MEDS ORDERED: FLORASTOR (S. BOULARDII) 250 MG CAP PO SCH (10:00)
[2022-06-24 08:46] LABS: Potassium 2.9 mmol/L (3.5-5.1)
== END 2022-06-23 11:00 | disposition home or self-care (01) | DRG 291 ==
LOC: ER 08:29 → TELE 17:57 → TELE-CENTR 22:00
PROVIDERS: ADMIT Registered Nurse; ATTEND Internal Medicine
PROC: 02HV33Z Insertion of Infusion Device into Superior Vena Cava, Percutaneous Approach (ICD-10-PCS; principal; 2022-06-20)
PROC: B548ZZA Ultrasonography of Superior Vena Cava, Guidance (ICD-10-PCS; 2022-06-20)
DX: I13.0 Hypertensive heart and chronic kidney disease with heart failure and stage 1 through stage 4 chronic kidney disease, or unspecified chronic kidney disease (principal); I50.43 Acute on chronic combined systolic (congestive) and diastolic (congestive) heart failure; N17.0 Acute kidney failure with tubular necrosis; L03.115 Cellulitis of right lower limb; E87.1 Hypo-osmolality and hyponatremia; L03.116 Cellulitis of left lower limb; E78.5 Hyperlipidemia, unspecified; E11.22 Type 2 diabetes mellitus with diabetic chronic kidney disease; E11.65 Type 2 diabetes mellitus with hyperglycemia; E66.01 Morbid (severe) obesity due to excess calories; E87.5 Hyperkalemia; E87.6 Hypokalemia; I25.10 Atherosclerotic heart disease of native coronary artery without angina pectoris; I25.2 Old myocardial infarction; Z20.822 Contact with and (suspected) exposure to COVID-19; I25.5 Ischemic cardiomyopathy; E11.51 Type 2 diabetes mellitus with diabetic peripheral angiopathy without gangrene; I48.91 Unspecified atrial fibrillation; J44.9 Chronic obstructive pulmonary disease, unspecified; N18.32 Chronic kidney disease, stage 3b; Z91.19 Patient's noncompliance with other medical treatment and regimen; Z91.041 Radiographic dye allergy status; Z91.013 Allergy to seafood; Z79.4 Long term (current) use of insulin; Z95.1 Presence of aortocoronary bypass graft; Z82.49 Family history of ischemic heart disease and other diseases of the circulatory system; Z83.3 Family history of diabetes mellitus; Z68.35 Body mass index [BMI] 35.0-35.9, adult; Z82.5 Family history of asthma and other chronic lower respiratory diseases
CPT/HCPCS: 36415; 36569; 70450; 71045; 74250; 76775; 80048; 80053; 80061; 81001; 82306; 82570; 82607; 82746; 82962; 83036; 83735; 83880; 83930; 83935; 83970; 84100; 84132; 84156; 84300; 84439; 84443; 84550; 85025; 85610; 85730; 86803; 87340; 93005; 93925; 93970; 94640; 96365; 96366; 96375; 99291; G0378; G0463; J0696; J1815; J2405; J3490; J7060

== ENCOUNTER → 2022-07-13 | Outpatient (CLI) | payer MEDICARE ==
[2022-07-13] VITALS (11 sets, daily range): BP systolic 120–151; BP diastolic 68–84
[~2022-07-13] VITALS: Ht 33 cm; Wt 0.5 kg
[~2022-07-13] MED LIST changes: +BACITRACIN TOP OINT 1 UD PKG TOP ONE; +DOPamine 1600MCG/ML D5W 250 ML IV ONE; +EMPA1TAB3 PO; +FURO1TAB31 PO; +ONDA-144 PO; +ONDANSETRON HCL 4 MG/2 ML VIAL IV ONE; +ONDANSETRON HCL 4 MG/2 ML VIAL ONE; +POTASSIUM CHL 10 Meq TABLET PO ONE; +POTASSIUM EFFERVESENT TAB 25 MEQ ONE; +POTASSIUM EFFERVESENT TAB 25 MEQ PO ONE; +RIVA10TA PO
[2022-07-13 12:42] LABS: BUN/Creatinine Ratio 29.9; Calcium 8.1 mg/dL (8.5-10.1); Magnesium 2.7 mg/dL (1.6-2.6)
[2022-07-13 14:29] LABS: Potassium 2.8 mmol/L (3.5-5.1)
== END | disposition home or self-care (01) ==
LOC: CHF HDHVI 11:05
PROVIDERS: ATTEND Internal Medicine Cardiovascular Disease
DX: I13.0 Hypertensive heart and chronic kidney disease with heart failure and stage 1 through stage 4 chronic kidney disease, or unspecified chronic kidney disease (principal); E11.22 Type 2 diabetes mellitus with diabetic chronic kidney disease; N18.32 Chronic kidney disease, stage 3b; I50.43 Acute on chronic combined systolic (congestive) and diastolic (congestive) heart failure; I25.10 Atherosclerotic heart disease of native coronary artery without angina pectoris; J44.9 Chronic obstructive pulmonary disease, unspecified; E78.5 Hyperlipidemia, unspecified; E03.9 Hypothyroidism, unspecified; I25.2 Old myocardial infarction; E66.01 Morbid (severe) obesity due to excess calories; E11.51 Type 2 diabetes mellitus with diabetic peripheral angiopathy without gangrene; I48.91 Unspecified atrial fibrillation; E11.65 Type 2 diabetes mellitus with hyperglycemia; E87.5 Hyperkalemia; Z68.35 Body mass index [BMI] 35.0-35.9, adult; Z79.899 Other long term (current) drug therapy; Z86.16 Personal history of COVID-19; Z86.73 Personal history of transient ischemic attack (TIA), and cerebral infarction without residual deficits; Z95.810 Presence of automatic (implantable) cardiac defibrillator; Z79.4 Long term (current) use of insulin; Z88.8 Allergy status to other drugs, medicaments and biological substances
CPT/HCPCS: 36415; 80048; 83735; 83880; 96365; 96375; G0463; J1265; J1642; J2405; 96366